=== PATIENT | female | born 1960 | race Caucasian/White ===

== ENCOUNTER 2017-10-20 15:21 | Observation (INO) | payer SELFPAY ==
[2017-10-20] VITALS (7 sets, daily range): BP systolic 112–125; BP diastolic 55–66; PULSE 75–106; RESP 18; TEMP 98–98.5; O2SAT 95–98
[~2017-10-20] VITALS: Ht 167.6 cm; Wt 57.6 kg
[~2017-10-20 15:21] MED LIST: ASPI81CH25 PO; ATOR20TA15 PO; FOLI1TAB6 PO; HYDR-3580 PO; METO25TA3 PO; NITR0.4S SL; PLAV75TA29 PO; RAMI2.5C PO; VENTAER INH
--- NOTE | 2017-10-20 16:42 | PD ---
HPI Chief Complaint: Cardiac Complaint Time Seen by Provider: 16:22 Travel History International Travel<30 days: No Contact w/Intl Traveler<30days: No Traveled to known affect area: No History of Present Illness HPI The patient was seen and examined in the presence of the nurse. This patient complains of chest pressure and tightness. It's located in the center sternal region. Duration 2 days. Severity is moderate. She has known CAD with stenting. She drinks heavily and smokes heavily. She is noncompliant with follow-up. She had a catheterization of her heart 4 months ago showing 75% stenosis of a vessel and some other more minor blockages and a patent stent and was supposed to get medical management but as noted she is fairly noncompliant. No alleviating factors. Symptoms exacerbated by her noncompliance PFSH Past Medical History Arthritis: Yes (right side) Anxiety: No Depression: No Cancer: No Cardiac Catheterization: Yes (stents) Cardiovascular Problems: Yes (STENT) High Cholesterol: Yes Chemotherapy: No Chest Pain: Yes Cerebrovascular Accident: No Coronary Artery Disease: Yes Diabetes: No Diminished Hearing: No Endocrine: No Genitourinary: No Hypertension: Yes Immune Disorder: Yes (ARTHRITIS) Musculoskeletal: Yes Neurologic: Yes Psychiatric: No Reproductive: No Respiratory: Yes (COPD) Immunizations Current: Yes Migraines: No Radiation Therapy: No Seizures: No Thyroid Disease: No Tetanus Vaccination: > 5 Years Influenza Vaccination: No ?: Not Menopausal: Yes : 5 Para: 1 Miscarriage: 2 : 2 Ovarian Cysts: Yes Past Surgical History Abdominal Surgery: Yes (APPENDECTOMY) AICD: No Appendectomy: Yes Insulin Pump: No Social History Alcohol Use: Yes (moderate-several x's weekly ) Tobacco Use: Yes (1 PPD) Substance Use: No Allergies-Medications (Allergen,Severity, Reaction): Coded Allergies: No Known Allergies (Verified Allergy, Unknown, 10/20/17) Reported Meds & Prescriptions Reported Meds & Active Scripts Active No Active Prescriptions or Reported Medications Review of Systems General / Constitutional: No: Fever Eyes: No: Visual changes HENT: No: Headaches Cardiovascular: Positive: Chest Pain or Discomfort Respiratory: Positive: Cough, No: Shortness of Breath Gastrointestinal: No: Abdominal Pain Genitourinary: No: Dysuria Musculoskeletal: No: Pain Skin: No Rash Neurologic: No: Weakness Psychiatric: Positive: Substance Abuse, No: Depression Endocrine: No: Polydipsia Hematologic/Lymphatic: No: Easy Bruising Physical Exam Narrative GENERAL: Well-nourished, well-developed patient in no apparent distress. SKIN: Focused skin assessment reveals no rash and nodules. Skin is Warm and dry. HEAD: Atraumatic. Normocephalic. EYES: Pupils equal and round. No scleral icterus. No injection or drainage. ENT: No nasal bleeding or discharge. Mucous membranes pink and moist. NECK: Trachea midline. No JVD. CARDIOVASCULAR: Regular rate and rhythm. No murmur appreciated. RESPIRATORY: No accessory muscle use. Clear to auscultation. Breath sounds equal bilaterally. GASTROINTESTINAL: Abdomen soft, non-tender, nondistended. Hepatic and splenic margins not palpable. MUSCULOSKELETAL: No obvious deformities. No clubbing. No cyanosis. No edema. NEUROLOGICAL: Awake and alert. No obvious cranial nerve deficits. Motor grossly within normal limits. Normal speech. PSYCHIATRIC: Appropriate mood and affect; insight and judgment poor. Data Data Last Documented VS Vital Signs Date Time Temp Pulse Resp B/P (MAP) Pulse Ox O2 Delivery O2 Flow Rate FiO2 10/20/17 18:15 85 18 122/66 (84) 97 Nasal Cannula 2.00 10/20/17 15:52 98.5 Orders Orders Electrocardiogram (10/20/17 16:33) Basic Metabolic Panel (Bmp) (10/20/17 16:33) Ckmb (Isoenzyme) Profile (10/20/17 16:33) Complete Blood Count With Diff (10/20/17 16:33) Prothrombin Time / Inr (Pt) (10/20/17 16:33) Act Partial Throm Time (Ptt) (10/20/17 16:33) Troponin I (10/20/17 16:33) Chest, Single Ap (10/20/17 16:33) Ecg Monitoring (10/20/17 16:33) Iv Access Insert/Monitor (10/20/17 16:33) Oximetry (10/20/17 16:33) Aspirin (Aspirin) (10/20/17 16:45) Sodium Chloride 0.9% Flush (Ns Flush) (10/20/17 16:45) Albuterol-Ipratropium Neb (Duoneb Neb) (10/20/17 16:45) Alcohol (Ethanol) (10/20/17 16:33) CKMB (10/20/17 16:10) CKMB% (10/20/17 16:10) Place In Observation (10/20/17 18:17) Activity Bed Rest With Brp (10/20/17 18:17) Vital Signs (Adult) Q4H (10/20/17 18:17) Cardiac Rhythm .As Directed (10/20/17 18:17) Notify Dr: Other .PRN (10/20/17 18:17) Notify Dr. Parameters (10/20/17 18:17) Resp Oxygen Nasal Cannula (10/20/17 ) Diet Heart Healthy (10/20/17 Dinner) Ckmb (Isoenzyme) Profile (10/20/17 19:00) Ckmb (Isoenzyme) Profile (10/20/17 22:00) Troponin I (10/20/17 19:00) Troponin I (10/20/17 22:00) Electrocardiogram (10/20/17 19:00) Electrocardiogram (10/20/17 22:00) Sodium Chloride 0.9% Flush (Ns Flush) (10/20/17 18:30) Sodium Chloride 0.9% Flush (Ns Flush) (10/20/17 21:00) Acetaminophen (Tylenol) (10/20/17 18:30) Ondansetron Inj (Zofran Inj) (10/20/17 18:30) Multimedia Services Coordinator / Telemetry JERMAN.Q8H (10/20/17 18:17) Scd Bilateral/Knee High JERMAN.QSHIFT (10/20/17 18:17) Labs Laboratory Tests Test 10/20/17 16:10 White Blood Count 7.7 TH/MM3 Red Blood Count 4.50 MIL/MM3 Hemoglobin 14.7 GM/DL Hematocrit 44.2 % Mean Corpuscular Volume 98.3 FL Mean Corpuscular Hemoglobin 32.7 PG Mean Corpuscular Hemoglobin Concent 33.2 % Red Cell Distribution Width 15.2 % Platelet Count 319 TH/MM3 Mean Platelet Volume 7.4 FL Neutrophils (%) (Auto) 41.3 % Lymphocytes (%) (Auto) 51.5 % Monocytes (%) (Auto) 4.1 % Eosinophils (%) (Auto) 2.1 % Basophils (%) (Auto) 1.0 % Neutrophils # (Auto) 3.2 TH/MM3 Lymphocytes # (Auto) 3.9 TH/MM3 Monocytes # (Auto) 0.3 TH/MM3 Eosinophils # (Auto) 0.2 TH/MM3 Basophils # (Auto) 0.1 TH/MM3 CBC Comment DIFF FINAL Differential Comment Prothrombin Time 9.4 SEC Prothromb Time International Ratio 0.9 RATIO Activated Partial Thromboplast Time 24.7 SEC Blood Urea Nitrogen 16 MG/DL Creatinine 0.62 MG/DL Random Glucose 80 MG/DL Calcium Level 8.4 MG/DL Sodium Level 140 MEQ/L Potassium Level 3.9 MEQ/L Chloride Level 104 MEQ/L Carbon Dioxide Level 25.0 MEQ/L Anion Gap 11 MEQ/L Estimat Glomerular Filtration Rate 99 ML/MIN Total Creatine Kinase 308 U/L Creatine Kinase MB 4.8 NG/ML Creatine Kinase MB % 1.6 % Troponin I LESS THAN 0.02 NG/ML Ethyl Alcohol Level 268 MG/DL [facility] Medical Decision Making Medical Screen Exam Complete: Yes Emergency Medical Condition: Yes Medical Record Reviewed: Yes Differential Diagnosis Differential diagnosis includes [place], angina, pericarditis, pleurisy, GERD, anxiety. Narrative Course I have reviewed the patient's electronic medical record. Reviewed her catheterization report from 4 months ago. Also had cavitary lung lesions that were negative for TB IV placed I reviewed the EKG which shows sinus rhythm but no ST elevation I reviewed the chest x-ray shows a cavitary lesion in the left lung Extended cardiac monitoring shows sinus rhythm without ectopy CBC is normal Metabolic profile is normal CK is normal Troponin is normal Coagulation studies are normal I gave her an aspirin Alcohol level is elevated indicating acute intoxication This is a patient with known CAD and 75% lesion complaining of chest pain. She is acutely intoxicated. She has multiple risk factors and is noncompliant. She 'll be admitted for telemetry monitoring and further evaluation. Also there is this issue cavitary lung lesion. I reviewed with hospitalist Diagnosis Primary Impression: Chest tightness Additional Impressions: CAD (coronary artery disease) Qualified Codes: I25.10 - Atherosclerotic heart disease of [place] coronary artery without angina pectoris; I25.84 - Coronary atherosclerosis due to calcified coronary lesion Alcohol intoxication Qualified Codes: F10.920 - Alcohol use, unspecified with intoxication, uncomplicated Cavitary lesion of lung Admitting Information Admitting Physician Requests: Admit Scripts No Active Prescriptions or Reported Meds Madi Villatoro MD Oct 20, 2017 16:42
[2017-10-20] MEDS ORDERED: ASPIRIN 325 MG TAB PO ONE (16:45)
[2017-10-20] MEDS ORDERED: SODIUM CHLORIDE 0.9% FLUSH 10 ML FLUSH IVF PRN (16:45)
[2017-10-20] MEDS ORDERED: RESP: ALBUTEROL 2.5 MG/IPRATROPIUM 0.5 MG NEB (SCH) NEB ONE (16:45)
[2017-10-20 16:56] LABS: AUTOMATED NEUTROPHIL # 3.2 TH/MM3 (1.8-7.7); BASOPHIL # 0.1 TH/MM3 (0-0.2); EOSINOPHIL # 0.2 TH/MM3 (0-0.4); EOSINOPHIL % 2.1 % (0.0-4.0); HEMATOCRIT 44.2 % (35.0-46.0); HEMOGLOBIN 14.7 GM/DL (11.6-15.3); LYMPH % 51.5 % (9.0-44.0); LYMPHOCYTE # 3.9 TH/MM3 (1.0-4.8); MEAN CELL VOLUME 98.3 FL (80.0-100.0); MEAN CORPUSCULAR HEMOGLOBIN 32.7 PG (27.0-34.0); MEAN CORPUSCULAR HGB CONC 33.2 % (32.0-36.0); MEAN PLATELET VOLUME 7.4 FL (7.0-11.0); MONO % 4.1 % (0.0-8.0); MONOCYTE # 0.3 TH/MM3 (0-0.9); NEUT % 41.3 % (16.0-70.0); PLATELET COUNT 319 TH/MM3 (150-450); RED CELL DISTRIBUTION WIDTH 15.2 % (11.6-17.2); WHITE BLOOD COUNT 7.7 TH/MM3 (4.0-11.0)
[2017-10-20 17:02] LABS: CHLORIDE 104 MEQ/L (98-107); SODIUM (NA) 140 MEQ/L (136-145)
[2017-10-20 17:04] LABS: CALCIUM 8.4 MG/DL (8.5-10.1)
[2017-10-20 17:05] LABS: BLOOD UREA NITROGEN 16 MG/DL (7-18); GLUCOSE,RANDOM 80 MG/DL (74-106)
[2017-10-20 17:06] LABS: INTERNATIONAL NORMALIZED RATIO 0.9 RATIO; PROTHROMBIN TIME - PATIENT 9.4 SEC (9.8-11.6)
[2017-10-20 17:08] LABS: CREATININE 0.62 MG/DL (0.50-1.00); GLOMERULAR FILTRATION RATE 99 ML/MIN (>89)
[2017-10-20 17:13] LABS: TROPONIN I LESS THAN 0.02 NG/ML (0.02-0.05)
--- NOTE | 2017-10-20 17:19 | RADRPT ---
EXAM DATE/TIME: 10/20/2017 16:53 [facility] COMPARISON: CHEST SINGLE AP, June 17, 2017, 10:34. INDICATIONS : Chest tightness and shortness of breath. MEDICAL HISTORY : Chronic obstructive pulmonary disease. Cardiovascular disease. SURGICAL HISTORY : Coronary artery stent. ENCOUNTER: Initial ACUITY: 2 days PAIN SCORE: 3/10 LOCATION: Bilateral chest FINDINGS: A single view of the chest demonstrates the lungs to be symmetrically aerated with a 1.8 cm, thickwal led cavitary mass lesion projecting over the left scapula and 6th posterior rib. Lungs are otherwise clear. Heart size is normal. Osseous structures are intact. CONCLUSION: 1. 1.8 cm thick walled cavitary mass lesion projecting over the left scapula. Both infectious and maricruz plastic processes should be considered. 2. No confluent infiltrate. Heart size is normal. Tristen Kumar MD on October 20, 2017 at 17:13 Board Certified Radiologist. This report was verified electronically.
[2017-10-20] MEDS ORDERED: ONDANSETRON HCL 4 MG/2 ML VIAL IV PUSH PRN (18:30)
[2017-10-20] MEDS ORDERED: ACETAMINOPHEN 500 MG CPLT PO PRN (18:30)
[2017-10-20] MEDS ORDERED: SODIUM CHLORIDE 0.9% FLUSH 10 ML FLUSH IV FLUSH PRN ×2 (18:30→18:45)
[2017-10-20] MEDS ORDERED: FLUMAZENIL 0.5 MG/5 ML VIAL IV PUSH PRN (18:45)
[2017-10-20] MEDS ORDERED: LORazepam 2 MG/ML VIAL IV PUSH PRN ×4 (18:45)
[2017-10-20] MEDS ORDERED: MORPHINE SULFATE 2 MG/ML INJ IM PRN (18:45)
[2017-10-20] MEDS ORDERED: RESP: ALBUTEROL 2.5 MG/IPRATROPIUM 0.5 MG NEB (PRN) NEB (18:45)
[2017-10-20] MEDS: CLOPIDOGREL 75 MG TAB PO SCH (18:45)
[2017-10-20] MEDS ORDERED: LORazepam 2 MG TAB PO PRN (18:45)
[2017-10-20] MEDS ORDERED: ACETAMINOPHEN/HYDROcodone 325 MG/5 MG TAB PO PRN (18:45)
--- NOTE | 2017-10-20 18:47 | HHI.HP ---
[facility] Service [facility] Primary Care Physician No Primary Care Physician Admission Diagnosis Chest pain,CAD, alcohol intox, pulm cavitary lesion Diagnoses: (1) Chest tightness Chief Complaint: Chest pain Travel History International Travel<30 Days: No Contact w/Intl Traveler <30 Da: No Traveled to Known Affected Are: No History of Present Illness Ms. Carnes is a 57-year-old female patient with a known medical history of CAD with stent placement, hyperlipidemia, alcohol abuse and tobacco abuse who presented to the ED with complaints of chest tightness. She complains of midsternal chest tightness and pressure, denying any radiation of pain, characterizing it as constant in nature, rated a seven out of ten on pain scale , denies any associated symptoms including diaphoresis, nausea, vomiting. Does admit to associated shortness of breath. Patient was last admitted here four months ago and underwent a cardiac catheterization with stent placement. Patient is noncompliant with follow-up medications due to lack of insurance and has not taken her medications for four months. Does admit to current tobacco use. Patient has a chronic alcoholic and alcohol level upon presentation was 268. Denies any recent illness including fever, cough, chills, abdominal pain, nausea, vomiting, diarrhea, dysuria. Does not follow with a PCP. During her hospitalization in July she was diagnosed with a new cavitary mass in the left upper lobe. Review of Systems Constitutional: DENIES: Fever, Chills Respiratory: COMPLAINS OF: Shortness of breath, DENIES: Cough, Sputum production Cardiovascular: COMPLAINS OF: Chest pain, Palpitations Gastrointestinal: DENIES: Abdominal pain, Black stools, Bloody stools, Constipation, Diarrhea, Nausea, Vomiting Integumentary: DENIES: Abnormal pigmentation Hematologic/lymphatic: DENIES: Bruising Immunologic/allergic: DENIES: Eczema Neurologic: DENIES: Abnormal gait Psychiatric: COMPLAINS OF: Anxiety Except as stated in HPI: all other systems reviewed are Neg Past Family Social History Past Medical History CAD with history of NC and cardiac stent placement Hyperlipidemia Hypertension Arthritis COPD neck sign tobacco abuse Past Surgical History Appendectomy Cardiac catheter with stent placement Reported Medications Has not been taking any prescribed medications due to lack of insurance Allergies: Coded Allergies: No Known Allergies (Verified Allergy, Unknown, 10/20/17) Active Ordered Medications Current Medications Medications (Trade) Dose Ordered Sig/Alison Route Start Time Stop Time Status Last Admin (NS Flush) 2 ml UNSCH PRN IVF 10/20/17 16:45 (NS Flush) 2 ml UNSCH PRN IV FLUSH 10/20/17 18:30 UNV (NS Flush) 2 ml BID IV FLUSH 10/20/17 21:00 UNV (Tylenol) 500 mg Q4H PRN PO 10/20/17 18:30 UNV (Zofran Inj) 4 mg Q6H PRN IV PUSH 10/20/17 18:30 UNV Family History Maternal medical history significant for lung cancer Social History Patient admits to smoking one pack per day cigarettes since since her teenage years. Continued alcohol use, has been trying to quit. Denies any illicit drug use. Physical Exam Vital Signs Vital Signs Date Time Temp Pulse Resp B/P (MAP) Pulse Ox O2 Delivery O2 Flow Rate FiO2 10/20/17 18:15 85 18 122/66 (84) 97 Nasal Cannula 2.00 10/20/17 17:00 92 18 116/64 (81) 95 Room Air 10/20/17 16:55 82 18 95 Room Air 10/20/17 16:55 98 Room Air 10/20/17 15:52 98.5 106 18 112/55 (74) 96 Physical Exam GENERAL: Well-nourished, well-developed patient in NAD. On supplemental O2 SKIN: Warm and dry. No rash. HEAD: Normocephalic. Atraumatic. EYES: Pupils equal and round. No scleral icterus. No injection or drainage. ENT: No nasal bleeding or discharge. Mucous membranes pink and moist. NECK: Supple. Trachea midline. CARDIOVASCULAR: Regular rate and rhythm. S1, S2 noted. No murmur appreciated. No reproducible chest pain. RESPIRATORY: No accessory muscle use. Diminished breath sounds in the posterior bases. Breath sounds equal bilaterally. GASTROINTESTINAL: Abdomen soft, non-tender, nondistended. Normoactive bowel sounds x4. MUSCULOSKELETAL: No obvious deformities. Extremities without clubbing, cyanosis , or edema. NEUROLOGICAL: Awake and alert. No obvious cranial nerve deficits. Motor grossly within normal limits. 5/5 muscle strength in bilateral upper and lower extremities. Normal speech. PSYCHIATRIC: Appropriate mood and affect; insight and judgment normal. Laboratory Laboratory Tests Test 10/20/17 16:10 White Blood Count 7.7 Red Blood Count 4.50 Hemoglobin 14.7 Hematocrit 44.2 Mean Corpuscular Volume 98.3 Mean Corpuscular Hemoglobin 32.7 Mean Corpuscular Hemoglobin Concent 33.2 Red Cell Distribution Width 15.2 Platelet Count 319 Mean Platelet Volume 7.4 Neutrophils (%) (Auto) 41.3 Lymphocytes (%) (Auto) 51.5 Monocytes (%) (Auto) 4.1 Eosinophils (%) (Auto) 2.1 Basophils (%) (Auto) 1.0 Neutrophils # (Auto) 3.2 Lymphocytes # (Auto) 3.9 Monocytes # (Auto) 0.3 Eosinophils # (Auto) 0.2 Basophils # (Auto) 0.1 CBC Comment DIFF FINAL Differential Comment Prothrombin Time 9.4 Prothromb Time International Ratio 0.9 Activated Partial Thromboplast Time 24.7 Blood Urea Nitrogen 16 Creatinine 0.62 Random Glucose 80 Calcium Level 8.4 Sodium Level 140 Potassium Level 3.9 Chloride Level 104 Carbon Dioxide Level 25.0 Anion Gap 11 Estimat Glomerular Filtration Rate 99 Total Creatine Kinase 308 Creatine Kinase MB 4.8 Creatine Kinase MB % 1.6 Troponin I LESS THAN 0.02 Ethyl Alcohol Level 268 Result Diagram: 10/20/17 1610 10/20/17 1610 Imaging Last Impressions Chest X-Ray 10/20/17 1633 Signed Impressions: Service Date/Time: Friday, October 20, 2017 16:53 - CONCLUSION: 1. 1.8 cm thick walled cavitary mass lesion projecting over the left scapula. Both infectious and neoplastic processes should be considered. 2. No confluent infiltrate. Heart size is normal. Tristen Kumar MD Septic Shock Reassessment Septic shock perfusion: reassessment completed Caprini VTE Risk Assessment Caprini VTE Risk Assessment: No/Low Risk (score <= 1) Caprini Risk Assessment Model Point Value = 1 Point Value = 2 Point Value = 3 Point Value = 5 Age 41-60 Minor surgery BMI > 25 kg/m2 Swollen legs Varicose veins or History of unexplained or recurrent spontaneous Oral contraceptives or hormone replacement Sepsis (< 1 month) Serious lung disease, including pneumonia (< 1 month) Abnormal pulmonary function Acute myocardial infarction Congestive heart failure (< 1 month) History of inflammatory bowel disease Medical patient at bed rest Age 61-74 Arthroscopic surgery Major open surgery (> 45 min) Laparoscopic surgery (> 45 min) Malignancy Confined to bed (> 72 hours) Immobilizing plaster cast Central venous access Age >= 75 History of VTE Family history of VTE Factor V Leiden Prothrombin [id number] Lupus anticoagulant Anticardiolipin antibodies Elevated serum homocysteine Heparin-induced thrombocytopenia Other congenital or acquired thrombophilia Stroke (< 1 month) Elective arthroplasty Hip, pelvis, or leg fracture Acute spinal cord injury (< 1 month) Prophylaxis Regimen Total Risk Factor Score Risk Level Prophylaxis Regimen 0-1 Low Early ambulation 2 Moderate Order ONE of the following: *Sequential Compression Device (SCD) *Heparin 5000 units SQ BID 3-4 Higher Order ONE of the following medications: *Heparin 5000 units SQ TID *Enoxaparin/Lovenox 40 mg SQ daily (WT < 150 kg, CrCl > 30 mL/min) *Enoxaparin/Lovenox 30 mg SQ daily (WT < 150 kg, CrCl > 10-29 mL/min) *Enoxaparin/Lovenox 30 mg SQ BID (WT < 150 kg, CrCl > 30 mL/min) AND/OR *Sequential Compression Device (SCD) 5 or more Highest Order ONE of the following medications: *Heparin 5000 units SQ TID (Preferred with Epidurals) *Enoxaparin/Lovenox 40 mg SQ daily (WT < 150 kg, CrCl > 30 mL/min) *Enoxaparin/Lovenox 30 mg SQ daily (WT < 150 kg, CrCl > 10-29 mL/min) *Enoxaparin/Lovenox 30 mg SQ BID (WT < 150 kg, CrCl > 30 mL/min) AND *Sequential Compression Device (SCD) Assessment and Plan Assessment and Plan Ms. Carnes is a 57-year-old female patient with a known medical history of CAD with stent placement, hyperlipidemia, alcohol abuse and tobacco abuse who presented to the ED with complaints of chest tightness. Atypical chest pain Suspect secondary to noncompliance with medication for cardiac stents. Serial troponins and serial EKGs have been ordered for ruling out ACS purposes. Initial Troponin flat. Follow trend. Control pain, [place] PO PRN as need per pain scale. Morphine IV PRN as needed per pain scale. Will contact cardiology in the morning, after ruling out ACS. For further recommendations and input. Cavitary mass in left upper lobe, chronic CXR reviewed showing 1.8 cm thick-walled cavitary mass lesion projecting over the past. Previous x-ray reviewed from July showing 3.5 cm cavitary mass of the left upper lobe. CBC and BMP reviewed essentially unremarkable. WBC WNL. Afebrile. Duonebs available PRN. Continue home inhaler. History of CAD with stent placement: Continue home Plavix. Continue home Ramipril, metoprolol and aspirin. Dyslipidemia: Continue home Atorvastatin. Alcohol abuse: Ethyl alcohol level 268 on presentation. Patient counselled on cessation. Monitor for withdrawals. CIWA protocol initiated. Continue multivitamin, folic acid and thiamine. Tobacco abuse: Counselled on cessation. DVT prophylaxis: SCDs. Lakshmi Benjamin Oct 20, 2017 18:47
[2017-10-20 19:37] LABS: TROPONIN I LESS THAN 0.02 NG/ML (0.02-0.05)
[2017-10-20] MEDS: RESP: ALBUTEROL 2.5 MG/IPRATROPIUM 0.5 MG NEB (SCH) NEB (19:46)
[2017-10-20] MEDS: ATORVASTATIN 20 MG TAB PO SCH (19:52)
[2017-10-20] MEDS: METOPROLOL TARTRATE 25 MG TAB PO SCH (19:52)
[2017-10-20] MEDS: SODIUM CHLORIDE 0.9% FLUSH 10 ML FLUSH IV FLUSH SCH ×2 (19:53)
[2017-10-20 22:43] LABS: TROPONIN I LESS THAN 0.02 NG/ML (0.02-0.05)
[2017-10-20] MEDS: LORazepam 1 MG TAB PO PRN (22:57)
[2017-10-21] VITALS (10 sets, daily range): BP systolic 131–176; BP diastolic 58–77; PULSE 59–83; RESP 16–20; TEMP 96.9–99.3; O2SAT 94–98
[2017-10-21 06:59] LABS: AUTOMATED NEUTROPHIL # 5.6 TH/MM3 (1.8-7.7); BASOPHIL # 0.1 TH/MM3 (0-0.2); BASOPHIL % 0.7 % (0.0-2.0); EOSINOPHIL # 0.3 TH/MM3 (0-0.4); EOSINOPHIL % 4.2 % (0.0-4.0); HEMATOCRIT 40.1 % (35.0-46.0); HEMOGLOBIN 13.8 GM/DL (11.6-15.3); LYMPHOCYTE # 1.5 TH/MM3 (1.0-4.8); MEAN CELL VOLUME 97.5 FL (80.0-100.0); MEAN CORPUSCULAR HEMOGLOBIN 33.5 PG (27.0-34.0); MEAN CORPUSCULAR HGB CONC 34.4 % (32.0-36.0); MEAN PLATELET VOLUME 7.5 FL (7.0-11.0); MONO % 7.9 % (0.0-8.0); MONOCYTE # 0.6 TH/MM3 (0-0.9); NEUT % 69.2 % (16.0-70.0); PLATELET COUNT 279 TH/MM3 (150-450); RED BLOOD COUNT 4.11 MIL/MM3 (4.00-5.30); RED CELL DISTRIBUTION WIDTH 14.5 % (11.6-17.2); WHITE BLOOD COUNT 8.1 TH/MM3 (4.0-11.0)
[2017-10-21 07:11] LABS: CHLORIDE 104 MEQ/L (98-107); SODIUM (NA) 140 MEQ/L (136-145)
[2017-10-21 07:15] LABS: BICARBONATE 27.2 MEQ/L (21.0-32.0); BLOOD UREA NITROGEN 20 MG/DL (7-18)
[2017-10-21 07:17] LABS: ALBUMIN 3.7 GM/DL (3.4-5.0); CALCIUM 8.7 MG/DL (8.5-10.1); GLUCOSE,RANDOM 81 MG/DL (74-106)
[2017-10-21 07:20] LABS: AST (GOT) 37 U/L (15-37)
[2017-10-21 07:21] LABS: ALT (GPT) 25 U/L (10-53); CREATININE 0.51 MG/DL (0.50-1.00); GLOMERULAR FILTRATION RATE 124 ML/MIN (>89)
[2017-10-21 07:22] LABS: TOTAL PROTEIN 7.2 GM/DL (6.4-8.2)
[2017-10-21 07:23] LABS: ALKALINE PHOSPHATASE 42 U/L (45-117)
[2017-10-21 07:25] LABS: TOTAL BILIRUBIN ADULT 1.3 MG/DL (0.2-1.0)
[2017-10-21] MEDS: RESP: ALBUTEROL 2.5 MG/IPRATROPIUM 0.5 MG NEB (SCH) NEB ×3 (07:46→20:00)
[2017-10-21] MEDS: FOLIC ACID 1 MG TAB PO SCH (08:02)
[2017-10-21] MEDS: MULTIVITAMINS/MINERALS THERAPEUTIC TAB PO SCH (08:02)
[2017-10-21] MEDS: METOPROLOL TARTRATE 25 MG TAB PO SCH ×2 (08:02→21:00)
[2017-10-21] MEDS: CLOPIDOGREL 75 MG TAB PO SCH (08:02)
[2017-10-21] MEDS: ASPIRIN 81 MG CHEW TAB CHEW SCH (08:02)
[2017-10-21] MEDS: THIAMINE HCL 100 MG TAB PO SCH (08:02)
[2017-10-21] MEDS: SODIUM CHLORIDE 0.9% FLUSH 10 ML FLUSH IV FLUSH SCH ×4 (08:03→21:02)
[2017-10-21] MEDS: RAMIPRIL 2.5 MG CAP PO SCH (08:31)
--- NOTE | 2017-10-21 09:17 | HHI.PR ---
Subjective Remarks Follow-up chest pain. Patient seen and examined, lying in bed awake and alert, no reports of any acute events overnight. Resting comfortably on room air. Chest pain has not resolved. Vital signs are stable. Afebrile. Patient will undergo a cardiac stress test today and obtain chest CT. Objective Vitals Vital Signs Date Time Temp Pulse Resp B/P (MAP) Pulse Ox O2 Delivery O2 Flow Rate FiO2 10/21/17 07:50 98.3 74 20 176/77 (110) 96 10/21/17 04:00 99.0 69 16 165/77 (106) 96 10/21/17 00:00 99.3 83 16 135/65 (88) 95 10/20/17 23:00 75 10/20/17 20:00 98.0 86 18 125/66 (85) 96 10/20/17 19:49 97 21 10/20/17 19:23 10/20/17 18:15 85 18 122/66 (84) 97 Nasal Cannula 2.00 10/20/17 17:00 92 18 116/64 (81) 95 Room Air 10/20/17 16:55 82 18 95 Room Air 10/20/17 16:55 98 Room Air 10/20/17 15:52 98.5 106 18 112/55 (74) 96 I/O 10/20/17 10/20/17 10/20/17 10/21/17 10/21/17 10/21/17 07:00 15:00 23:00 07:00 15:00 23:00 Intake Total 180 ml Balance 180 ml Intake Oral 180 ml # Voids 1 # Bowel Movements 0 Result Diagram: 10/21/17 0609 10/21/17 0609 Imaging Last Impressions Chest X-Ray 10/20/17 1633 Signed Impressions: Service Date/Time: Friday, October 20, 2017 16:53 - CONCLUSION: 1. 1.8 cm thick walled cavitary mass lesion projecting over the left scapula. Both infectious and neoplastic processes should be considered. 2. No confluent infiltrate. Heart size is normal. Tristen Kumar MD Objective Remarks GENERAL: Well-nourished, well-developed patient in NAD. SKIN: Warm and dry. No rash. HEAD: Normocephalic. Atraumatic. EYES: Pupils equal and round. No scleral icterus. No injection or drainage. ENT: No nasal bleeding or discharge. Mucous membranes pink and moist. NECK: Supple. Trachea midline. CARDIOVASCULAR: Regular rate and rhythm. S1, S2 noted. No murmur appreciated. RESPIRATORY: No accessory muscle use. Clear to auscultation. Breath sounds equal bilaterally. GASTROINTESTINAL: Abdomen soft, non-tender, nondistended. Normoactive bowel sounds x4. MUSCULOSKELETAL: No obvious deformities. Extremities without clubbing, cyanosis , or edema. NEUROLOGICAL: Awake and alert. No obvious cranial nerve deficits. Motor grossly within normal limits. 5/5 muscle strength in bilateral upper and lower extremities. Normal speech. PSYCHIATRIC: Appropriate mood and affect; insight and judgment normal. A/P Assessment and Plan Ms. Carnes is a 57-year-old female patient with a known medical history of CAD with stent placement, hyperlipidemia, alcohol abuse and tobacco abuse who presented to the ED with complaints of chest tightness. Atypical chest pain Suspect secondary to noncompliance with medication for cardiac stents vs cavitary lesion. Serial troponins and serial EKGs have been ordered for ruling out ACS purposes. Troponins flat. Control pain, [place] PO PRN as need per pain scale. Morphine IV PRN as needed per pain scale. Spoke to technical operations manager on-call for chest pain center and updated about patient history, will undergo cardiac stress test today to rule out any presence of ischemia. Further hospitalization and treatment plan will depend on nuclear imaging results. Cavitary mass in left upper lobe, chronic CXR reviewed showing 1.8 cm thick-walled cavitary mass lesion projecting over the past. Previous x-ray reviewed from July showing 3.5 cm cavitary mass of the left upper lobe. Will obtain chest CT today.. CBC and BMP reviewed essentially unremarkable. WBC WNL. Afebrile. Duonebs available PRN. Continue home inhaler. History of CAD with stent placement: Continue home Plavix. Continue home Ramipril, metoprolol and aspirin. Dyslipidemia: Continue home Atorvastatin. Alcohol abuse: Ethyl alcohol level 268 on presentation. Patient counselled on cessation. Monitor for withdrawals. CIWA protocol initiated. Continue multivitamin, folic acid and thiamine. Tobacco abuse: Counselled on cessation. DVT prophylaxis: SCDs. Lakshmi Benjamin Oct 21, 2017 09:17
[2017-10-21] MEDS ORDERED: MORPHINE SULFATE 2 MG/ML INJ IV PUSH PRN (09:45)
[2017-10-21] MEDS ORDERED: IOHEXOL 350 MG/ML 10 ML VIAL (for RAD DIAG) IVCONTRAST ONE (11:30)
[2017-10-21] MEDS ORDERED: REGADENOSON INJ 0.4 MG/5 ML SYR IV ONE (11:50)
--- NOTE | 2017-10-21 12:35 | RADRPT ---
EXAM DATE/TIME: 10/21/2017 11:06 [facility] COMPARISON: CT THORAX W CONTRAST, August 12, 2017, 22:15. INDICATIONS : Mass IV CONTRAST: 75 cc Omnipaque 350 (iohexol) IV RADIATION DOSE: 6.21 CTDIvol (mGy) MEDICAL HISTORY : Cardiovascular disease. Chronic obstructive pulmonary disease. Hypertension.Alchohol abuse SURGICAL HISTORY : Appendectomy. Hysterectomy. ENCOUNTER: Initial ACUITY: 1 day PAIN SCALE: 0/10 LOCATION: Bilateral chest TECHNIQUE: Volumetric scanning of the chest was performed. Using automated exposure control and adjustment of t he mA and/or kV according to patient size, radiation dose was kept as low as reasonably achievable to obtain optimal diagnostic quality images. DICOM format image data is available electronically for review and comparison. Follow-up recommendations for detected pulmonary nodules are based at a minimum on nodule size and pa tient risk factors according to Fleischner Society Guidelines. FINDINGS: LUNGS: A mass is again identified in the left upper lobe laterally. It has decreased in size when compared t o the prior study of 08/12/2017. Now measuring 2.5 x 2.1 cm compared to 3.5 x 3.1 cm. Left perihilar irregularly-shaped opacity is again seen on image #24. There is mild cavitation in this opacity as we ll. It measures 1.8 x 0.9 cm compared to 2.0 x 1.1 cm on the prior study. Linear opacity in the poste rior right lower lobe is again seen indicating scarring or atelectasis. PLEURA: There is no pleural thickening or pleural effusion. MEDIASTINUM: Coronary artery calcification. No enlarged lymph nodes. AXILLAE: Within normal limits. No lymphadenopathy. SKELETAL: Within normal limits for patient age. MISCELLANEOUS: The visualized upper abdominal organs demonstrate no acute abnormality. CONCLUSION: Decrease in size of cavitary mass in the left upper lobe laterally. Decrease in size of irregular sha ped perihilar opacity in the left lung with mild cavitation. These changes favor inflammatory etiolog ies. Arturo Pepe MD on October 21, 2017 at 12:27 Board Certified Radiologist. This report was verified electronically.
[2017-10-21] MEDS: SODIUM CHLOR 0.9% 1000 ML INJ 1,000 ML IV SCH ×2 (12:38→21:02)
--- NOTE | 2017-10-21 12:54 | RADRPT ---
EXAM DATE/TIME: 10/21/2017 11:22 [facility] COMPARISON: MYOCARDIAL PERF PHARM SPECT, GATED W/EF, May 20, 2017, 9:33. INDICATIONS : Midsternal chest pain with dyspnea. Angina. Coronary artery disease. DOSE: 25.4 mCi Tc99m Myoview at stress. 8.5 mCi Tc99m Myoview at rest. 0.4 mg Lexiscan STRESS SYMPTOMS: Dyspnea, lightheaded, stomach pressure and facial flush. EJECTION FRACTION: 60% MEDICAL HISTORY : Chronic obstructive pulmonary disease. Hypertension. Myocardial infarction. SURGICAL HISTORY : Appendectomy. Coronary artery stent. ENCOUNTER: Initial ACUITY: 1 day PAIN SCALE: 6/10 LOCATION: Midsternal chest TECHNIQUE: The patient underwent pharmacologic stress with infusion of prescribed dose. Continuous ECG tracing was monitored during stress. Gated SPECT imaging was performed after stress and conventional SPECT i maging was performed at rest. The examination was performed on a SPECT/CT scanner, both attenuation and non-corrected datasets were reviewed. FINDINGS: DISTRIBUTION: The maximum perfused segment at stress is in the inferior wall. PERFUSION STUDY: The pattern of perfusion at stress is within normal limits. GATED STUDY: There is intact wall motion and thickening without hypokinetic or dyskinetic segments. CONCLUSION: No focal wall motion abnormalities. No reversible perfusion defects. RISK CATEGORY: 1- Low Risk. Arturo Pepe MD on October 21, 2017 at 12:49 Board Certified Radiologist. This report was verified electronically.
--- NOTE | 2017-10-21 13:39 | EKG ---
Date Performed: 10/20/2017 Time Performed: 19:06:55 PTAGE: 57 years EKG: Sinus rhythm Since the prior tracing, there has been no significant change NORMAL ECG PREVIOUS TRACING : 10/20/2017 16.46 DOCTOR: [place] Lubin Interpretating Date/Time 10/21/2017 13:37:16
--- NOTE | 2017-10-21 13:39 | EKG ---
Date Performed: 10/20/2017 Time Performed: 22:10:51 PTAGE: 57 years EKG: Sinus rhythm Since the prior tracing, there has been no significant change NORMAL ECG PREVIOUS TRACING : 10/20/2017 19.06 DOCTOR: [place] Lubin Interpretating Date/Time 10/21/2017 13:37:07
--- NOTE | 2017-10-21 13:50 | EKG ---
Date Performed: 10/20/2017 Time Performed: 16:46:31 PTAGE: 57 years EKG: Sinus rhythm POSSIBLE RIGHT VENTRICULAR CONDUCTION DELAY BORDERLINE ECG NO PREVIOUS TRACING DOCTOR: [place] Lubin Interpretating Date/Time 10/21/2017 13:44:37
--- NOTE | 2017-10-21 15:32 | TR ---
Date Performed: 10/21/2017 Time Performed: 12:01:43 DOCTOR: Reji Castillo DRUG LIST: CLINICAL HISTORY: CHEST PAIN REASON FOR TEST: Chest pain REASON FOR ENDING: OBSERVATION: CONCLUSION: Lexiscan stress test was performed under standard four minute protocol. Radionuclid e was injected one minute prior to ending the test. No electrocardiographic abormalities were present to suggest ischemia. Nuclear imaging and interpretation are pending. COMMENTS:
[2017-10-21] MEDS: ATORVASTATIN 20 MG TAB PO SCH (21:00)
[2017-10-21] MEDS: LORazepam 1 MG TAB PO PRN (21:01)
[2017-10-22 00:02] VITALS: BP 120/64; PULSE 70; RESP 18; TEMP 97.9; O2SAT 99
[2017-10-22] MEDS: RESP: ALBUTEROL 2.5 MG/IPRATROPIUM 0.5 MG NEB (SCH) NEB (07:18)
[2017-10-22 07:19] VITALS: O2SAT 96
[2017-10-22] MEDS ORDERED: RAMI2.5C PO (07:37)
[2017-10-22] MEDS ORDERED: PLAV75TA29 PO (07:37)
[2017-10-22] MEDS ORDERED: METO25TA3 PO (07:37)
[2017-10-22] MEDS ORDERED: ASPI81 CHEW (07:37)
[2017-10-22] MEDS ORDERED: ATOR20TA15 PO (07:37)
--- NOTE | 2017-10-22 07:37 | HHI.DCPOC ---
Discharge Care Plan Diagnosis: (1) Chest tightness (2) CAD (coronary artery disease) (3) Alcohol intoxication (4) Cavitary lesion of lung (5) Tobacco abuse Goals to Promote Your Health * To prevent worsening of your condition and complications * To maintain your health at the optimal level Directions to Meet Your Goals Take your medications as prescribed Follow your dietary instruction Follow activity as directed Keep your appointments as scheduled Take your immunizations and boosters as scheduled If your symptoms worsen call your PCP, if no PCP go to Urgent Care Center or Emergency Room Smoking is Dangerous to Your Health. Avoid second hand smoke Call the 24-hour hour crisis hotline for domestic abuse at Lakshmi Benjamin Oct 22, 2017 07:37
--- NOTE | 2017-10-22 07:38 | HHI.PR ---
Subjective Remarks Follow-up chest pain and cavitary lesion. Patient seen and examined, sitting up on side of bed comfortably, in no apparent distress. States chest pain has resolved. All symptoms have improved. Denies any acute events overnight. Patient's vitals are stable. Cardiac stress test unremarkable. Objective Vitals Vital Signs Date Time Temp Pulse Resp B/P (MAP) Pulse Ox O2 Delivery O2 Flow Rate FiO2 10/22/17 07:19 96 21 10/22/17 04:29 10/22/17 00:02 97.9 70 18 120/64 (82) 99 10/21/17 21:21 98.0 59 16 131/58 (82) 98 10/21/17 20:02 94 21 10/21/17 20:00 76 10/21/17 15:00 96.9 69 20 143/71 (95) 94 10/21/17 14:54 98 21 10/21/17 11:50 98.5 71 20 140/69 (92) 95 10/21/17 08:00 18 10/21/17 07:50 98.3 74 20 176/77 (110) 96 I/O 10/21/17 10/21/17 10/21/17 10/22/17 10/22/17 10/22/17 07:00 15:00 23:00 07:00 15:00 23:00 Intake Total 180 ml 440 ml Balance 180 ml 440 ml Intake Oral 180 ml 240 ml IV Total 200 ml # Voids 1 3 3 # Bowel Movements 0 1 0 Result Diagram: 10/21/17 0609 10/21/17 0609 Imaging Last Impressions Myocardial Perfusion Scan Nuc Med 10/21/17 0000 Signed Impressions: Service Date/Time: Saturday, October 21, 2017 11:22 - CONCLUSION: No focal wall motion abnormalities. No reversible perfusion defects. RISK CATEGORY: 1- Low Risk. Arturo Pepe MD Chest CT 10/21/17 0000 Signed Impressions: Service Date/Time: Saturday, October 21, 2017 11:06 - CONCLUSION: Decrease in size of cavitary mass in the left upper lobe laterally. Decrease in size of irregular shaped perihilar opacity in the left lung with mild cavitation. These changes favor inflammatory etiologies. Arturo Pepe MD Chest X-Ray 10/20/17 1633 Signed Impressions: Service Date/Time: Friday, October 20, 2017 16:53 - CONCLUSION: 1. 1.8 cm thick walled cavitary mass lesion projecting over the left scapula. Both infectious and neoplastic processes should be considered. 2. No confluent infiltrate. Heart size is normal. Tristen Kumar MD Objective Remarks GENERAL: Well-nourished, well-developed patient in NAD. SKIN: Warm and dry. No rash. HEAD: Normocephalic. Atraumatic. EYES: Pupils equal and round. No scleral icterus. No injection or drainage. ENT: No nasal bleeding or discharge. Mucous membranes pink and moist. NECK: Supple. Trachea midline. CARDIOVASCULAR: Regular rate and rhythm. S1, S2 noted. No murmur appreciated. No reproducible chest pain. RESPIRATORY: No accessory muscle use. Clear to auscultation. Breath sounds equal bilaterally. GASTROINTESTINAL: Abdomen soft, non-tender, nondistended. Normoactive bowel sounds x4. MUSCULOSKELETAL: No obvious deformities. Extremities without clubbing, cyanosis , or edema. NEUROLOGICAL: Awake and alert. No obvious cranial nerve deficits. Motor grossly within normal limits. 5/5 muscle strength in bilateral upper and lower extremities. Normal speech. PSYCHIATRIC: Appropriate mood and affect; insight and judgment normal. A/P Assessment and Plan Ms. Carnes is a 57-year-old female patient with a known medical history of CAD with stent placement, hyperlipidemia, alcohol abuse and tobacco abuse who presented to the ED with complaints of chest tightness. Atypical chest pain Suspect secondary to noncompliance with medication for cardiac stents vs cavitary lesion. Serial troponins and serial EKGs have been ordered for ruling out ACS purposes. Troponins flat. Control pain, [place] PO PRN as need per pain scale. Morphine IV PRN as needed per pain scale. Lexiscan performed yesterday, no ischemia noted and no reversible perfusion defects. EF 60% Chest pain is resolved Cavitary mass in left upper lobe, chronic CXR reviewed showing 1.8 cm thick-walled cavitary mass lesion projecting over the past. Previous x-ray reviewed from July showing 3.5 cm cavitary mass of the left upper lobe. Chest CT reviewed showing a decrease in size of cavitary mass in the left upper lobe laterally. A decrease in size of irregular shaped perihilar opacity in the left lung with mild cavitation. Most likely inflammatory etiology. CBC and BMP reviewed essentially unremarkable. WBC WNL. Afebrile. Duonebs available PRN. Continue home inhaler. Mandatory referral was replaced pulmonology upon discharge area patient understandable about importance of following up with loan processing supervisor. History of CAD with stent placement: Continue home Plavix. Continue home Ramipril, metoprolol and aspirin. Dyslipidemia: Continue home Atorvastatin. Alcohol abuse: Ethyl alcohol level 268 on presentation. Patient counselled on cessation. Updated about elevated bili. Monitor for withdrawals. CIWA protocol. Tobacco abuse: Counselled on cessation. DVT prophylaxis: SCDs. Discharge Planning Patient will be discharged today with taxi past. Patient has been given two month supply of medications, encouraged to follow-up at the [facility] tomorrow for card, patient agreeable and will follow-up with pulmonology regarding cavitary mass/lesion on chest CT, has decreased in size. Patient counseled on smoking sensation, and the importance of quitting. Patient also counseled on quitting alcohol. Patient is stable at this time and agreeable to the plan Lakshmi Benjamin Oct 22, 2017 07:38
[2017-10-22 07:50] VITALS: BP 137/91; PULSE 76; RESP 20; TEMP 97.5; O2SAT 97
[2017-10-22] MEDS: ASPIRIN 81 MG CHEW TAB CHEW SCH (08:17)
[2017-10-22] MEDS: MULTIVITAMINS/MINERALS THERAPEUTIC TAB PO SCH (08:17)
[2017-10-22] MEDS: THIAMINE HCL 100 MG TAB PO SCH (08:17)
[2017-10-22] MEDS: CLOPIDOGREL 75 MG TAB PO SCH (08:17)
[2017-10-22] MEDS: RAMIPRIL 2.5 MG CAP PO SCH (08:17)
[2017-10-22] MEDS: FOLIC ACID 1 MG TAB PO SCH (08:18)
[2017-10-22] MEDS: METOPROLOL TARTRATE 25 MG TAB PO SCH (08:18)
[2017-10-22] MEDS: SODIUM CHLORIDE 0.9% FLUSH 10 ML FLUSH IV FLUSH SCH ×2 (08:19)
[2017-10-22] MEDS: SODIUM CHLOR 0.9% 1000 ML INJ 1,000 ML IV SCH (09:20)
== END 2017-10-22 11:45 | disposition home or self-care (01) ==
LOC: PHED 15:21 → PHEDA 18:23 → PH3A 19:25
PROVIDERS: ADMIT Hospitalist; ATTEND Hospitalist
DX: R07.89 Other chest pain (principal); I25.10 Atherosclerotic heart disease of native coronary artery without angina pectoris; E78.5 Hyperlipidemia, unspecified; E78.00 Pure hypercholesterolemia, unspecified; I10 Essential (primary) hypertension; J44.9 Chronic obstructive pulmonary disease, unspecified; R91.1 Solitary pulmonary nodule; F10.129 Alcohol abuse with intoxication, unspecified; F17.210 Nicotine dependence, cigarettes, uncomplicated; I25.2 Old myocardial infarction; Z91.19 Patient's noncompliance with other medical treatment and regimen; Y90.8 Blood alcohol level of 240 mg/100 ml or more; Z95.5 Presence of coronary angioplasty implant and graft; Z90.710 Acquired absence of both cervix and uterus
CPT/HCPCS: 71045; 71260; 78452; 80048; 80053; 80307; 82550; 82552; 84484; 85025; 85610; 85730; 93005; 93017; 94640; 94664; 96361; 96374; 96376; 99285; A9502; G0378; J2270; J2785; J7030; Q9967

== ENCOUNTER 2018-01-27 09:51 | Inpatient (IN) | payer SELFPAY ==
[2018-01-27] VITALS (9 sets, daily range): BP systolic 129–174; BP diastolic 57–94; PULSE 82–125; RESP 18–21; TEMP 97.5–100.1; O2SAT 86–99
[~2018-01-27] VITALS: Ht 170.2 cm; Wt 58.1 kg
[~2018-01-27 09:51] MED LIST changes: +ASPI81 CHEW; -ASPI81CH25 PO; -FOLI1TAB6 PO; -HYDR-3580 PO; -NITR0.4S SL; -VENTAER INH
[2018-01-27] MEDS: RESP: ALBUTEROL 2.5 MG/IPRATROPIUM 0.5 MG NEB (SCH) INH ×2 (10:15→10:28)
[2018-01-27] MEDS ORDERED: methylPREDNISolone SOD SUCC 125 MG/2 ML VIAL IV PUSH ONE (10:15)
--- NOTE | 2018-01-27 10:19 | PD ---
HPI Chief Complaint: Cold / Flu Symptoms Time Seen by Provider: 10:06 Travel History International Travel<30 days: No Contact w/Intl Traveler<30days: No Traveled to known affect area: No History of Present Illness HPI 57-year-old female presents to the emergency department for evaluation of chest congestion, chest tightness, cough, shortness of breath that started 4 days ago. She states that she started with dyspnea with exertion yesterday. She states she can only walk approximately 10 feet without becoming short of breath. Patient has history of cardiac stent and hypertension. She states that she has no insurance and cannot afford medications. She has not been taking her medications. She has not had follow-up with limnologist. Patient states she feels like she has an infection. She has not taken her temperature. No abdominal pain. No vomiting. Exacerbating factors exertion. No alleviating factors. Moderate severity. PFSH Past Medical History Arthritis: Yes (right side) Anxiety: No Depression: No Cancer: No Cardiac Catheterization: Yes (stents) Cardiovascular Problems: Yes High Cholesterol: Yes Chemotherapy: No Chest Pain: Yes Cerebrovascular Accident: No Coronary Artery Disease: Yes Diabetes: No Diminished Hearing: No Endocrine: No Genitourinary: No Hypertension: Yes Immune Disorder: Yes (ARTHRITIS) Musculoskeletal: Yes Neurologic: Yes Psychiatric: No Reproductive: No Respiratory: Yes (COPD) Immunizations Current: Yes Migraines: No Radiation Therapy: No Seizures: No Thyroid Disease: No ?: Not Menopausal: Yes : 5 Para: 1 Miscarriage: 2 : 2 Ovarian Cysts: Yes Past Surgical History Abdominal Surgery: Yes (APPENDECTOMY) AICD: No Appendectomy: Yes Insulin Pump: No Other Surgery: Yes Social History Alcohol Use: Yes (moderate-several x's weekly ) Tobacco Use: Yes (1 PPD) Substance Use: No Allergies-Medications (Allergen,Severity, Reaction): Coded Allergies: No Known Allergies (Verified Allergy, Unknown, 01/27/18) Reported Meds & Prescriptions Reported Meds & Active Scripts Active Tgt Aspirin (Aspirin) 81 Mg Chw 81 Mg CHEW DAILY 60 Days Review of Systems Except as stated in HPI: all other systems reviewed are Neg Physical Exam Narrative GENERAL: Well-nourished, well-developed female patient, afebrile. SKIN: Focused skin assessment warm/dry. HEAD: Normocephalic. Atraumatic. ENT: Mucosa pink and moist. No erythema or exudates. No uvular edema. No uvular , palatal, or tonsillar deviation. Airway patent. Nasal turbinates appear normal without nasal blood, purulent drainage or septal hematoma. Bilateral tympanic membranes clear without erythema or perforation. EYES: No scleral icterus. No injection or drainage. NECK: Supple, trachea midline. No JVD or lymphadenopathy. CARDIOVASCULAR: Regular rhythm without murmurs, gallops, or rubs. Patient is tachycardic with heart rate in the 120s. RESPIRATORY: Breath sounds equal bilaterally. No accessory muscle use. Patient has expiratory wheezing and rhonchi noted throughout. GASTROINTESTINAL: Abdomen soft, non-tender, nondistended. MUSCULOSKELETAL: No cyanosis, or edema. BACK: Nontender without obvious deformity. No CVA tenderness. Data Data Last Documented VS Vital Signs Date Time Temp Pulse Resp B/P (MAP) Pulse Ox O2 Delivery O2 Flow Rate FiO2 01/27/18 12:35 109 20 129/59 (82) Nasal Cannula 2.00 01/27/18 11:30 86 01/27/18 10:01 99.7 Orders Orders Complete Blood Count With Diff (01/27/18 10:14) Basic Metabolic Panel (Bmp) (01/27/18 10:14) D-Dimer (01/27/18 10:14) Act Partial Throm Time (Ptt) (01/27/18 10:14) Prothrombin Time / Inr (Pt) (01/27/18 10:14) Magnesium (Mg) (01/27/18 10:14) Ckmb (Isoenzyme) Profile (01/27/18 10:14) Troponin I (01/27/18 10:14) Iv Access Insert/Monitor (01/27/18 10:14) Electrocardiogram (01/27/18 10:14) Ecg Monitoring (01/27/18 10:14) Oximetry (01/27/18 10:14) Oxygen Administration (01/27/18 10:14) Chest, Pa & Lat (01/27/18 10:14) Sodium Chloride 0.9% Flush (Ns Flush) (01/27/18 10:15) Methylprednisolone So Succ Inj (Solumedr (01/27/18 10:15) Albuterol-Ipratropium Neb (Duoneb Neb) (01/27/18 10:15) CKMB (01/27/18 10:15) CKMB% (01/27/18 10:15) Ct Pulmonary Angiogram (01/27/18 ) Iohexol 350 Inj (Omnipaque 350 Inj) (01/27/18 11:59) Blood Culture (01/27/18 12:36) Lactic Acid Sepsis Protocol (01/27/18 12:36) Ceftriaxone Inj (Rocephin Inj) (01/27/18 12:45) Azithromycin Inj (Zithromax Inj) (01/27/18 12:45) Admit Order (Ed Use Only) (01/27/18 13:04) Labs Laboratory Tests Test 01/27/18 10:15 01/27/18 12:40 White Blood Count 9.5 TH/MM3 Red Blood Count 4.32 MIL/MM3 Hemoglobin 14.4 GM/DL Hematocrit 43.2 % Mean Corpuscular Volume 100.1 FL Mean Corpuscular Hemoglobin 33.3 PG Mean Corpuscular Hemoglobin Concent 33.3 % Red Cell Distribution Width 13.6 % Platelet Count 247 TH/MM3 Mean Platelet Volume 7.8 FL Neutrophils (%) (Auto) 79.8 % Lymphocytes (%) (Auto) 9.6 % Monocytes (%) (Auto) 7.9 % Eosinophils (%) (Auto) 0.3 % Basophils (%) (Auto) 2.4 % Neutrophils # (Auto) 7.6 TH/MM3 Lymphocytes # (Auto) 0.9 TH/MM3 Monocytes # (Auto) 0.8 TH/MM3 Eosinophils # (Auto) 0.0 TH/MM3 Basophils # (Auto) 0.2 TH/MM3 CBC Comment DIFF FINAL Differential Comment Prothrombin Time 9.2 SEC Prothromb Time International Ratio 0.9 RATIO Activated Partial Thromboplast Time 25.5 SEC D-Dimer Quantitative (PE/DVT) 0.85 MG/L FEU Blood Urea Nitrogen 16 MG/DL Creatinine 0.57 MG/DL Random Glucose 173 MG/DL Calcium Level 9.4 MG/DL Magnesium Level 2.0 MG/DL Sodium Level 137 MEQ/L Potassium Level 4.4 MEQ/L Chloride Level 99 MEQ/L Carbon Dioxide Level 31.5 MEQ/L Anion Gap 7 MEQ/L Estimat Glomerular Filtration Rate 109 ML/MIN Total Creatine Kinase 165 U/L Creatine Kinase MB 1.8 NG/ML Troponin I LESS THAN 0.02 NG/ML MDM Medical Decision Making Medical Screen Exam Complete: Yes Emergency Medical Condition: Yes Medical Record Reviewed: Yes Interpretation(s) chest x-ray - CONCLUSION: 1. Left upper lobe cavitary lesion/nodule measures approximately 1.8 cm, slightly decreased in size from the prior CT and definitively decreased in size from the prior chest x-ray. 2. No other acute finding is identified. CT PA - CONCLUSION: 1. No PE is identified. 2. Bilateral cavitary nodules are present with a new 16 mm right lower lobe cavitary nodule and enlargement of an additional right lower lobe cavitary nodule. Additionally, there are multifocal areas of groundglass opacity and tree in bud opacity bilaterally. The cavitary nodules raise suspicion for metastatic disease or septic emboli. Differential Diagnosis Pneumonia versus bronchitis versus PE versus ACS Narrative Course 57-year-old female presents to the emergency department for evaluation of chest congestion, chest tightness, cough, shortness of breath for 4 days. Patient does have history of cardiac stent and hypertension, does not take medications. On exam, patient is extra wheezing and rhonchi noted throughout. IV access established. EKG, CBC, BMP, magnesium, CK, troponin, PTT, PT/INR, d-dimer, chest x-ray ordered and pending. Patient is given DuoNeb 3 and Solu-Medrol 125 mg IV. EKG shows sinus tachycardia, heart rate 106, no acute ST changes. CBC shows no acute abnormality. BMP shows hyperglycemia 173. Magnesium is 2.0. CK is 165. Troponin is less than 0.02. Coags show no acute abnormality. D-dimer is 0.85. Chest x-ray shows Left upper lobe cavitary lesion/nodule measures approximately 1.8 cm, slightly decreased in size from the prior CT and definitively decreased in size from the prior chest x-ray; No other acute finding is identified. CT pulmonary angiogram is ordered and shows No PE, No PE is identified; 2. Bilateral cavitary nodules are present with a new 16 mm right lower lobe cavitary nodule and enlargement of an additional right lower lobe cavitary nodule. Additionally, there are multifocal areas of groundglass opacity and tree in bud opacity bilaterally. The cavitary nodules raise suspicion for metastatic disease or septic emboli. During visit, oxygen saturation continually has been decreasing to 85-86% on room air. Patient is placed on 2 L O2 nasal cannula. I discussed the case with my attending physican, Dr. Martinez. Blood cultures and lactic acid ordered and pending. Patient started on Rocephin and azithromycin. Patient will be admitted for metastatic disease versus pneumonia versus abscess versus TB. Dr. Cedillo accepted admission. Sepsis Criteria SIRS Criteria (2 or more): Heart rate over 90 Diagnosis Primary Impression: Cavitary lesion of lung Additional Impression: Dyspnea Qualified Codes: R06.09 - Other forms of dyspnea Admitting Information Admitting Physician Requests: Admit Jeanne Jackson January 27, 2018 10:19
[2018-01-27 10:35] LABS: AUTOMATED NEUTROPHIL # 7.6 TH/MM3 (1.8-7.7); BASOPHIL # 0.2 TH/MM3 (0-0.2); BASOPHIL % 2.4 % (0.0-2.0); EOSINOPHIL % 0.3 % (0.0-4.0); HEMATOCRIT 43.2 % (35.0-46.0); HEMOGLOBIN 14.4 GM/DL (11.6-15.3); LYMPH % 9.6 % (9.0-44.0); LYMPHOCYTE # 0.9 TH/MM3 (1.0-4.8); MEAN CELL VOLUME 100.1 FL (80.0-100.0); MEAN CORPUSCULAR HEMOGLOBIN 33.3 PG (27.0-34.0); MEAN CORPUSCULAR HGB CONC 33.3 % (32.0-36.0); MEAN PLATELET VOLUME 7.8 FL (7.0-11.0); MONO % 7.9 % (0.0-8.0); MONOCYTE # 0.8 TH/MM3 (0-0.9); NEUT % 79.8 % (16.0-70.0); PLATELET COUNT 247 TH/MM3 (150-450); RED BLOOD COUNT 4.32 MIL/MM3 (4.00-5.30); RED CELL DISTRIBUTION WIDTH 13.6 % (11.6-17.2); WHITE BLOOD COUNT 9.5 TH/MM3 (4.0-11.0)
[2018-01-27 10:50] LABS: CHLORIDE 99 MEQ/L (98-107); SODIUM (NA) 137 MEQ/L (136-145)
[2018-01-27 10:53] LABS: BICARBONATE 31.5 MEQ/L (21.0-32.0); BLOOD UREA NITROGEN 16 MG/DL (7-18); CALCIUM 9.4 MG/DL (8.5-10.1); GLUCOSE,RANDOM 173 MG/DL (74-106)
[2018-01-27 10:57] LABS: CREATININE 0.57 MG/DL (0.50-1.00); D-DIMER 0.85 MG/L FEU (0.00-0.50); GLOMERULAR FILTRATION RATE 109 ML/MIN (>89); INTERNATIONAL NORMALIZED RATIO 0.9 RATIO; PROTHROMBIN TIME - PATIENT 9.2 SEC (9.8-11.6)
[2018-01-27 11:02] LABS: TROPONIN I LESS THAN 0.02 NG/ML (0.02-0.05)
--- NOTE | 2018-01-27 11:48 | RADRPT ---
EXAM DATE/TIME: 01/27/2018 10:58 [facility] COMPARISON: CT THORAX W CONTRAST, October 21, 2017, 11:06. CHEST PA & LAT, August 12, 2017, 20:44. INDICATIONS : Short of breath, cough, chest pains MEDICAL HISTORY : Chronic obstructive pulmonary disease. Cardiovascular disease. SURGICAL HISTORY : Coronary artery stent. ENCOUNTER: Initial ACUITY: 4 - 6 days PAIN SCORE: 7/10 LOCATION: Bilateral chest FINDINGS: Frontal and lateral views of the chest demonstrate a normal-sized cardiac silhouette with calcificati on of the aorta. There is a cavitary lesion/nodule in the left upper lobe measuring approximately 1.8 cm. The left perihilar cavitary nodule described on the prior chest CT is not definitely seen on thi s examination. No pleural effusion or airspace consolidation is seen. There is no pneumothorax. Bones and soft tissues demonstrate no acute finding. CONCLUSION: 1. Left upper lobe cavitary lesion/nodule measures approximately 1.8 cm, slightly decreased in size f rom the prior CT and definitively decreased in size from the prior chest x-ray. 2. No other acute finding is identified. Dany Sharma MD on January 27, 2018 at 11:44 Board Certified Radiologist. This report was verified electronically.
[2018-01-27] MEDS ORDERED: IOHEXOL 350 MG/ML 10 ML VIAL (for RAD DIAG) IVCONTRAST ONE (11:59)
--- NOTE | 2018-01-27 12:28 | RADRPT ---
EXAM DATE/TIME: 01/27/2018 11:50 [facility] COMPARISON: CT THORAX W CONTRAST, October 21, 2017, 11:06. CT THORAX W CONTRAST, August 12, 2017, 22:15. CHES T PA & LAT, January 27, 2018, 10:58. INDICATIONS : Short of breath and productive cough. IV CONTRAST: 65 cc Omnipaque 350 (iohexol) IV RADIATION DOSE: 7.13 CTDIvol (mGy) MEDICAL HISTORY : Cardiovascular disease. Hypertension. Chronic obstructive pulmonary disease. SURGICAL HISTORY : Coronary artery stent. Appendectomy. ENCOUNTER: Initial ACUITY: 3 days PAIN SCALE: 0/10 LOCATION: chest TECHNIQUE: Volumetric scanning of the chest was performed using a pulmonary embolism protocol MIP images were re constructed. Using automated exposure control and adjustment of the mA and/or kV according to patien t size, radiation dose was kept as low as reasonably achievable to obtain optimal diagnostic quality images. DICOM format image data is available electronically for review and comparison. Follow-up recommendations for detected pulmonary nodules are based at a minimum on nodule size and pa tient risk factors according to Fleischner Society Guidelines. FINDINGS: PULMONARY ARTERIES: No filling defects are seen in the pulmonary arteries through the segmental level. LUNGS: There is a mildly thick walled irregular cavitary lesion in the left upper lobe measuring 2.0 x 1.4 c m, stable from the prior study. There is also irregular nodular opacity in the left suprahilar region of the left upper lobe. Multiple new patchy areas of groundglass attenuation are present bilaterally and there is a new cavitary nodule in the right lower lobe measuring 16 mm. The partially cavitary i rregular nodule in the right lower lobe measuring 19 x 16 mm has increased in size. Mild tree in bud opacity is present in the right upper lobe. No pneumothorax is present. PLEURAE: There is no pleural thickening or pleural effusion. MEDIASTINUM: The heart and great vessels demonstrate no acute finding. There is coronary artery calcification and atherosclerotic disease of the aorta. An enlarged right hilar lymph node is present measuring 12 mm i n short axis diameter. There is additional right hilar lymph node tissue present. MUSCULOSKELETAL: There are degenerative changes of the thoracic spine with pectus excavatum. MISCELLANEOUS: The visualized upper abdominal organs demonstrate no acute abnormality. CONCLUSION: 1. No PE is identified. 2. Bilateral cavitary nodules are present with a new 16 mm right lower lobe cavitary nodule and enlar gement of an additional right lower lobe cavitary nodule. Additionally, there are multifocal areas of groundglass opacity and tree in bud opacity bilaterally. The cavitary nodules raise suspicion for me tastatic disease or septic emboli. Dany Sharma MD on January 27, 2018 at 12:10 Board Certified Radiologist. This report was verified electronically.
[2018-01-27] MEDS ORDERED: cefTRIAXone INJ 1,000 MG in SODIUM CHLORIDE 0.9% INJ 100 ML IV ONE (12:45)
[2018-01-27] MEDS ORDERED: AZITHROMYCIN INJ 500 MG in SODIUM CHLOR 0.9% 250 ML INJ 250 ML IV ONE (12:45)
[2018-01-27] MEDS ORDERED: AZITHROMYCIN INJ 500 MG in SODIUM CHLOR 0.9% 250 ML INJ 250 ML IV SCH ×2 (14:00→16:00)
--- NOTE | 2018-01-27 14:49 | EKG ---
Date Performed: 01/27/2018 Time Performed: 10:26:28 PTAGE: 57 years EKG: SINUS TACHYCARDIA POSSIBLE LEFT ATRIAL ENLARGEMENT When compared to previous tracing, sinus rate is slightlyn faster. ABNORMAL RHYTHM ECG PREVIOUS TRACING : 10/20/2017 22.10 DOCTOR: Ishaan Landeros Interpretating Date/Time 01/27/2018 14:49:11
[2018-01-27] MEDS ORDERED: RESP: ALBUTEROL 2.5 MG/IPRATROPIUM 0.5 MG NEB (PRN) NEB (15:00)
[2018-01-27] MEDS ORDERED: cefTRIAXone INJ 1,000 MG in SODIUM CHLORIDE 0.9% INJ 100 ML IV SCH (15:00)
--- NOTE | 2018-01-27 15:14 | HHI.HP ---
[facility] Primary Care Physician No Primary Care Physician Admission Diagnosis Cavitary lung lesions, dyspnea Diagnoses: (1) Cavitary lesion of lung (2) Dyspnea (3) Chest tightness (4) CAD (coronary artery disease) (5) Tobacco abuse Chief Complaint: Shortness of breath Travel History International Travel<30 Days: No Contact w/Intl Traveler <30 Da: No Traveled to Known Affected Are: No History of Present Illness This is a 57-year-old female patient with a known medical history of CAD with stent placement, hyperlipidemia, alcohol abuse and tobacco abuse who presented to the ED with complaints of shortness of breath for 4 days. Patient states that yesterday while at work her dyspnea worsened, especially with exertion. She states that she has been coughing for several days with productive yellow phlegm. Admits to poor appetite. Also admits to losing a large amount of weight during the past few months. Does admit to chills, denies any fevers, for the same issues. 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 Is prescribed Plavix and aspirin, states she does take her aspirin. Supposedly patient has an appointment with the [facility] coming up. CTA upon presentation showing no evidence of PE. Bilateral cavitary nodules with a new 16 mm right lower lobe cavitary nodule noted. Requiring 4 L nasal cannula at this time. Review of Systems Constitutional: COMPLAINS OF: Chills, DENIES: Fever Eyes: DENIES: Blurred vision, Diplopia Respiratory: COMPLAINS OF: Cough, Sputum production, Shortness of breath Cardiovascular: COMPLAINS OF: Chest pain, Palpitations Gastrointestinal: DENIES: Abdominal pain, Black stools, Bloody stools, Constipation, Diarrhea, Nausea, Vomiting Musculoskeletal: DENIES: Joint pain Hematologic/lymphatic: DENIES: Bruising Neurologic: DENIES: Abnormal gait Psychiatric: COMPLAINS OF: Anxiety Except as stated in HPI: all other systems reviewed are Neg Past Family Social History Past Medical History CAD with history of PA and cardiac stent placement Hyperlipidemia Hypertension Arthritis COPD neck sign tobacco abuse Past Surgical History Appendectomy Cardiac catheterization with stent placement Reported Medications Active Aspirin (Aspirin) 81 Mg Chw 81 Mg CHEW DAILY 60 Days Patient is prescribed other medications but have not been taking them due to insurance and monetary reasons Allergies: Coded Allergies: No Known Allergies (Verified Allergy, Unknown, 01/27/18) Active Ordered Medications Current Medications Medications (Trade) Dose Ordered Sig/Alison Route Start Time Stop Time Status Last Admin (NS Flush) 2 ml UNSCH PRN IVF 01/27/18 10:15 Family History Maternal medical history significant for lung cancerPatient admits to smoking one pack per day cigarettes since since her teenage years. Continued alcohol use , has been trying to quit. Denies any illicit drug use. Social History Does admit to smoking 1 pack per day cigarettes, although since she has had this dyspnea she smoked 6 cigarettes a day. Admits to drinking a few alcoholic drinks per week. Denies any illicit drug use. Physical Exam Vital Signs Vital Signs Date Time Temp Pulse Resp B/P (MAP) Pulse Ox O2 Delivery O2 Flow Rate FiO2 01/27/18 14:36 01/27/18 13:40 97 20 149/66 (93) 95 01/27/18 12:35 109 20 129/59 (82) Nasal Cannula 2.00 01/27/18 11:30 112 86 Nasal Cannula 2.00 01/27/18 10:52 125 20 150/57 (88) 99 01/27/18 10:33 99 01/27/18 10:01 99.7 124 18 143/75 (97) 95 Physical Exam GENERAL: Well-developed, well-nourished patient in NAD. On supplemental O2. SKIN: Warm and dry. No rash. HEAD: Normocephalic. Atraumatic. EYES: Pupils equal and round. No scleral icterus. No injection or drainage. ENT: No nasal bleeding or discharge. Mucous membranes pink and moist. NECK: Supple. Trachea midline. CARDIOVASCULAR: Regular rate and rhythm. S1, S2 noted. No murmur appreciated. No chest pain to palpation. RESPIRATORY: No accessory muscle use. Right lower lobe posterior lung ramirez diminished. Left posterior lung ramirez clear. Breath sounds equal bilaterally. GASTROINTESTINAL: Abdomen soft, non-tender, nondistended. Normoactive bowel sounds x4. MUSCULOSKELETAL: No obvious deformities. Extremities without clubbing, cyanosis , or edema. NEUROLOGICAL: Awake and alert. No obvious cranial nerve deficits. Motor grossly within normal limits. 5/5 muscle strength in bilateral upper and lower extremities. Normal speech. PSYCHIATRIC: Appropriate mood and affect; insight and judgment normal. Laboratory Laboratory Tests Test 01/27/18 10:15 01/27/18 13:15 White Blood Count 9.5 Red Blood Count 4.32 Hemoglobin 14.4 Hematocrit 43.2 Mean Corpuscular Volume 100.1 Mean Corpuscular Hemoglobin 33.3 Mean Corpuscular Hemoglobin Concent 33.3 Red Cell Distribution Width 13.6 Platelet Count 247 Mean Platelet Volume 7.8 Neutrophils (%) (Auto) 79.8 Lymphocytes (%) (Auto) 9.6 Monocytes (%) (Auto) 7.9 Eosinophils (%) (Auto) 0.3 Basophils (%) (Auto) 2.4 Neutrophils # (Auto) 7.6 Lymphocytes # (Auto) 0.9 Monocytes # (Auto) 0.8 Eosinophils # (Auto) 0.0 Basophils # (Auto) 0.2 CBC Comment DIFF FINAL Differential Comment Prothrombin Time 9.2 Prothromb Time International Ratio 0.9 Activated Partial Thromboplast Time 25.5 D-Dimer Quantitative (PE/DVT) 0.85 Blood Urea Nitrogen 16 Creatinine 0.57 Random Glucose 173 Calcium Level 9.4 Magnesium Level 2.0 Sodium Level 137 Potassium Level 4.4 Chloride Level 99 Carbon Dioxide Level 31.5 Anion Gap 7 Estimat Glomerular Filtration Rate 109 Total Creatine Kinase 165 Creatine Kinase MB 1.8 Troponin I LESS THAN 0.02 Lactic Acid Level 1.4 Date/Time Source Procedure Growth Status 01/27/18 12:40 Blood Peripheral Aerobic Blood Culture Pending Received 01/27/18 12:40 Blood Peripheral Anaerobic Blood Culture Pending Received Result Diagram: 01/27/18 1015 01/27/18 1015 Imaging Last Impressions Chest X-Ray 01/27/18 1014 Signed Impressions: Service Date/Time: Saturday, January 27, 2018 10:58 - CONCLUSION: 1. Left upper lobe cavitary lesion/nodule measures approximately 1.8 cm, slightly decreased in size from the prior CT and definitively decreased in size from the prior chest x-ray. 2. No other acute finding is identified. Dany Sharma MD CT Angiography 01/27/18 0000 Signed Impressions: Service Date/Time: Saturday, January 27, 2018 11:50 - CONCLUSION: 1. No PE is identified. 2. Bilateral cavitary nodules are present with a new 16 mm right lower lobe cavitary nodule and enlargement of an additional right lower lobe cavitary nodule. Additionally, there are multifocal areas of groundglass opacity and tree in bud opacity bilaterally. The cavitary nodules raise suspicion for metastatic disease or septic emboli. Dany Sharma MD Septic Shock Reassessment Septic shock perfusion: reassessment completed Caprini VTE Risk Assessment Caprini VTE Risk Assessment: No/Low Risk (score <= 1) Caprini Risk Assessment Model Point Value = 1 Point Value = 2 Point Value = 3 Point Value = 5 Age 41-60 Minor surgery BMI > 25 kg/m2 Swollen legs Varicose veins or History of unexplained or recurrent spontaneous Oral contraceptives or hormone replacement Sepsis (< 1 month) Serious lung disease, including pneumonia (< 1 month) Abnormal pulmonary function Acute myocardial infarction Congestive heart failure (< 1 month) History of inflammatory bowel disease Medical patient at bed rest Age 61-74 Arthroscopic surgery Major open surgery (> 45 min) Laparoscopic surgery (> 45 min) Malignancy Confined to bed (> 72 hours) Immobilizing plaster cast Central venous access Age >= 75 History of VTE Family history of VTE Factor V Leiden Prothrombin [id number] Lupus anticoagulant Anticardiolipin antibodies Elevated serum homocysteine Heparin-induced thrombocytopenia Other congenital or acquired thrombophilia Stroke (< 1 month) Elective arthroplasty Hip, pelvis, or leg fracture Acute spinal cord injury (< 1 month) Prophylaxis Regimen Total Risk Factor Score Risk Level Prophylaxis Regimen 0-1 Low Early ambulation 2 Moderate Order ONE of the following: *Sequential Compression Device (SCD) *Heparin 5000 units SQ BID 3-4 Higher Order ONE of the following medications: *Heparin 5000 units SQ TID *Enoxaparin/Lovenox 40 mg SQ daily (WT < 150 kg, CrCl > 30 mL/min) *Enoxaparin/Lovenox 30 mg SQ daily (WT < 150 kg, CrCl > 10-29 mL/min) *Enoxaparin/Lovenox 30 mg SQ BID (WT < 150 kg, CrCl > 30 mL/min) AND/OR *Sequential Compression Device (SCD) 5 or more Highest Order ONE of the following medications: *Heparin 5000 units SQ TID (Preferred with Epidurals) *Enoxaparin/Lovenox 40 mg SQ daily (WT < 150 kg, CrCl > 30 mL/min) *Enoxaparin/Lovenox 30 mg SQ daily (WT < 150 kg, CrCl > 10-29 mL/min) *Enoxaparin/Lovenox 30 mg SQ BID (WT < 150 kg, CrCl > 30 mL/min) AND *Sequential Compression Device (SCD) Assessment and Plan Assessment and Plan Ms. Carnes is a 57-year-old female patient with a known medical history of CAD with stent placement, hyperlipidemia, alcohol abuse and tobacco abuse who presented to the ED with complaints of chest tightness. Cavitary mass right lower lobe, chronic with associated dyspnea and hypoxia requiring supplemental O2. - D-dimer elevated. - CT angiography showing no PE. Bilateral cavitary nodules with a new 16 mm right lower lobe cavitary nodule seen with enlargement of an additional right lower lobe cavitary nodule. Groundglass opacity and tree-in-bud opacities bilaterally. - Suspicion for metastatic disease or septic emboli. - Consult placed to pulmonology, appreciate input recommendations. Consult also placed to oncology, appreciate recommendations. - CBC and BMP reviewed essentially unremarkable. WBC WNL. Afebrile. Monitor for infection. - Duonebs available PRN. Supplemental O2 as needed, requiring 4 L nasal cannula at this time. - Will start on IV steroids. - Supportive care. Atypical chest pain - Suspect secondary to noncompliance with medication for cardiac stents. - Serial troponins and serial EKGs have been ordered for ruling out ACS purposes. Initial Troponin flat. Follow trend. - Control pain, [place] PO PRN as need per pain scale. Morphine IV PRN as needed per pain scale. History of CAD with stent placement: Continue home Plavix. Continue home Ramipril, metoprolol and aspirin. Noncompliant with Dyslipidemia: Continue home Atorvastatin. Alcohol abuse: Patient counselled on cessation. Monitor for withdrawals. CIWA protocol initiated. Continue multivitamin, folic acid and thiamine. Tobacco abuse: Counselled on cessation. DVT prophylaxis: SCDs. Physician Certification 2 Midnight Certification Type: Admission for Inpatient Services Order for Inpatient Services The services are ordered in accordance with Medicare regulations or non- Medicare payer requirements, as applicable. In the case of services not specified as inpatient-only, they are appropriately provided as inpatient services in accordance with the 2-midnight benchmark. Estimated LOS (days): 3 3 days is the estimated time the patient will need to remain in the hospital, assuming treatment plan goals are met and no additional complications. Post-Hospital Plan: Not yet determined Problem Qualifiers (1) Dyspnea: Qualified Codes: R06.09 - Other forms of dyspnea Lakshmi Benjamin January 27, 2018 15:14
[2018-01-27] MEDS: CLOPIDOGREL 75 MG TAB PO SCH (15:24)
[2018-01-27] MEDS: ASPIRIN 81 MG CHEW TAB CHEW SCH (15:25)
[2018-01-27] MEDS ORDERED: ACETAMINOPHEN/HYDROcodone 325 MG/5 MG TAB PO PRN (15:30)
[2018-01-27] MEDS ORDERED: MORPHINE SULFATE 4 MG/ML INJ IV PUSH PRN (15:30)
[2018-01-27] MEDS ORDERED: LORazepam 2 MG TAB PO PRN (15:30)
[2018-01-27] MEDS ORDERED: LORazepam 1 MG TAB PO PRN (15:30)
[2018-01-27] MEDS ORDERED: ACETAMINOPHEN 325 MG TAB PO PRN (15:30)
[2018-01-27] MEDS ORDERED: FLUMAZENIL 0.5 MG/5 ML VIAL IV PUSH PRN (15:30)
[2018-01-27] MEDS ORDERED: LORazepam 2 MG/ML VIAL IV PUSH PRN ×4 (15:30)
[2018-01-27] MEDS: RAMIPRIL 2.5 MG CAP PO SCH (15:44)
[2018-01-27] MEDS: ACETAMINOPHEN/HYDROcodone 325 MG/5 MG TAB PO PRN ×2 (15:49→21:10)
[2018-01-27 17:16] LABS: TROPONIN I LESS THAN 0.02 NG/ML (0.02-0.05)
[2018-01-27] MEDS ORDERED: methylPREDNISolone SOD SUCC 40 MG/1 ML VIAL IV PUSH SCH (18:00)
--- NOTE | 2018-01-27 19:32 | MB ---
cc: Juanpablo De Leon MD, V J MD DATE: 01/27/2018 REASON FOR CONSULTATION: Respiratory distress and cavitary lung lesions HISTORY OF PRESENT ILLNESS: This is a 57-year-old white female who has a longstanding history of smoking, has been coughing, congested, bringing up some yellow mucus and became quite short of breath over the past 2 days. The patient states that she could not ambulate due to severe shortness of breath and, thus, she came to the hospital for evaluation. A CT of the chest was then done which showed no evidence of pulmonary emboli, but she did have bilateral cavitary lung lesions which are nodular and a new 16 mm right lower lobe cavitary nodule was seen as well. The patient has had similar cavitary lesions noted since July of last year and apparently has taken antibiotics in the past, but no biopsies OR investigations were completed. She has no hemoptysis. She has lost weight up to 10 pounds. No nausea, vomiting or history of aspiration. PAST MEDICAL HISTORY: Included history of hypertension and hyperlipidemia, history of chronic obstructive pulmonary disease and chronic bronchitis, history of arthritis as well as coronary artery disease with stenting and previous NE. PAST SURGICAL HISTORY: Includes appendectomy and cardiac catheterizations. ALLERGIES: ASPIRIN. HABITS: The patient smokes 1 pack per day, has done so for over 35 years. Alcohol use minimal at this time. She works at the [employer]. FAMILY HISTORY: Noncontributory. REVIEW OF SYSTEMS: The patient has lost weight. She has sinus disease, postnasal drip. She has cough with expectoration. She has epigastric distress and reflux. She has urinary frequency and denies any leg swelling or calf muscle pain. She has some joint pains of her extremities and some anxiety. PHYSICAL EXAMINATION: GENERAL: This is a thinly built middle-aged white female who is alert, pale and mildly dyspneic at rest. VITAL SIGNS: Blood pressure 130/70, pulse 95, respirations 22, temperature 99.7. HEENT: Head is normocephalic. Pupils are reactive and equal. Tongue was moist. Throat was injected. Nasal mucosa is clear. NECK: Supple, no bruits, no thyroid enlargement or lymphadenopathy. CHEST: Distant breath sounds with expiratory wheezes bilaterally, prolonged expirations. HEART: The heart sounds are regular S1, S2 with no murmur. No S3. ABDOMEN: Soft, scaphoid, without masses. No organomegaly or tenderness. Bowel sounds are active. EXTREMITIES: No lesions, no edema, no calf tenderness. NEUROLOGIC: Reflexes are 1+ with no gross motor deficits. Cranial nerves grossly intact. SKIN: No lesions. IMPRESSION: 1. Chronic obstructive pulmonary disease with acute exacerbation. 2. Bilateral cavitary lung nodules, rule out metastatic disease versus infectious etiology like granulomatous disease. 3. Nicotine dependency. 4. History of hypertension. 5. Coronary artery disease status post stenting. PLAN: The patient has been started on antibiotic coverage including Levaquin 750 mg IV daily and Rocephin 1 gram IV daily. She was advised that a CT-guided needle biopsy of one of the lung lesions might give us some idea as to the etiology of these lesions. Also get a pulmonary function study at the bedside. Nebulized DuoNeb solution added q.i.d. and continue with Solu-Medrol 40 mg IV every 8 hours. The patient was counseled about quitting cigarette smoking and use a nicotine patch 14 mg per 24 hours. Followup chest x-ray to be done as well as CBC. Sputum culture and Gram stain and AFB culture. Blood cultures are pending. I will follow the case with you, Dr. Cedillo. Thank you for this consultation. Juanpablo De Leon MD VJD/ , 06:33 PM , 07:30 PM
[2018-01-27] MEDS: RESP: ALBUTEROL 2.5 MG/IPRATROPIUM 0.5 MG NEB (SCH) NEB (20:01)
[2018-01-27] MEDS ORDERED: HEPARIN SODIUM - SQ 10,000 UNITS/ML VIAL SQ SCH (21:00)
[2018-01-27] MEDS: LEVOFLOXACIN 750 MG PREMIX INJ 150 ML IV SCH (21:29)
[2018-01-27] MEDS: ATORVASTATIN 20 MG TAB PO SCH (21:29)
[2018-01-27] MEDS: METOPROLOL TARTRATE 25 MG TAB PO SCH (21:29)
[2018-01-27] MEDS: methylPREDNISolone SOD SUCC 40 MG/1 ML VIAL IV PUSH SCH (21:31)
[2018-01-27] MEDS: SODIUM CHLORIDE 0.9% FLUSH 10 ML FLUSH IVF PRN (21:31)
[2018-01-27 22:11] LABS: TROPONIN I LESS THAN 0.02 NG/ML (0.02-0.05)
[2018-01-27] MEDS: LORazepam 0.5 MG TAB PO PRN (23:17)
[2018-01-28] VITALS (11 sets, daily range): BP systolic 132–176; BP diastolic 60–80; PULSE 63–93; RESP 16–20; TEMP 96.3–99.1; O2SAT 90–96
[2018-01-28] MEDS ORDERED: ENALAPRILAT 1.25 MG/ML VIAL IV PUSH PRN (01:45)
[2018-01-28] MEDS: SODIUM CHLORIDE 0.9% FLUSH 10 ML FLUSH IVF PRN ×2 (04:44→20:34)
[2018-01-28] MEDS: methylPREDNISolone SOD SUCC 40 MG/1 ML VIAL IV PUSH SCH ×3 (04:44→22:54)
[2018-01-28] MEDS: ACETAMINOPHEN/HYDROcodone 325 MG/5 MG TAB PO PRN ×4 (07:55→22:53)
[2018-01-28] MEDS: RAMIPRIL 2.5 MG CAP PO SCH (07:56)
[2018-01-28] MEDS: ASPIRIN 81 MG CHEW TAB CHEW SCH (07:56)
[2018-01-28] MEDS: METOPROLOL TARTRATE 25 MG TAB PO SCH ×2 (07:56→20:32)
[2018-01-28] MEDS: CLOPIDOGREL 75 MG TAB PO SCH (07:56)
[2018-01-28] MEDS: RESP: ALBUTEROL 2.5 MG/IPRATROPIUM 0.5 MG NEB (SCH) NEB ×3 (08:00→19:32)
--- NOTE | 2018-01-28 09:15 | MB ---
cc: Patrick Oden MD DATE: 01/28/2018 CHIEF COMPLAINT: Cavitary lesion in the left lung. PATIENT PROFILE: The patient is a 57-year-old white female. She has been twice. She is . She has a daughter, age 37. She was born in [place]. 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 She has smoked a pack of cigarettes per day for 32 years and continues to smoke. She will have 2-3 drinks during the week. She drank heavily in the 1980s, but currently does not. HISTORY OF PRESENT ILLNESS: The patient is a 57-year-old female whose history dates back to 07/2017. She was evaluated for chest pain and was found to have a cavitary mass in the peripheral left upper lobe. There was a smaller mass seen centrally in the left upper lobe, adjacent to the hilum. It was felt that infection was likely, although a cavitary malignancy could not be excluded. There was no lymphadenopathy and there was mild emphysema. In talking to the patient, a needle biopsy was planned, but it took a while to make the necessary arrangements and she became inpatient and left. She had another CT of the chest on 10/21/2017, which again showed the mass in the left upper lobe laterally, it had decreased in size when compared to the study of 08/12/2017, measuring 2.5 cm, where it previously measured 3.5 cm. There was a left perihilar shaped opacity on image 24, there was mild cavitation in this opacity measuring 1.8 cm compared to previous 2 cm. Again, the findings were suggestive of an inflammatory process, but malignancy still could not be ruled out. She is now admitted to the hospital because of increasing shortness of breath over several days. She had a CT angiogram. Bilateral cavitary nodules are present with a new 16 mm right upper lobe cavitary nodule and enlargement of an additional right lower lobe cavitary nodule. There are multifocal areas of ground glass opacity and tree-in-bud opacities bilaterally. The radiologist commented "the cavitary nodules are suspicious for metastatic disease or septic emboli. The major change in the patient's health has been worsening shortness of breath over many months. She continues to smoke as indicated above. There has been weight loss, which is not specified. She tells me that her clothes fit differently. She denies any hemoptysis. PAST SURGICAL HISTORY: 1. Coronary stent by Dr. Matute in 06/2017. 2. Appendectomy and ovarian cyst removal age 16. PAST MEDICAL HISTORY: 1. Tobacco abuse. 2. Chronic obstructive pulmonary disease. 3. Coronary artery disease. 4. Angina. 5. Hypertension. 6. Elevated cholesterol. MEDICATIONS: She takes at home: Aspirin 81 mg a day. She was given a prescription for Plavix, Lopressor and Altace, but does not take this. This is possibly due to economic reasons. ALLERGIES: NONE. FAMILY HISTORY: The patient tells me that her mother has lung cancer and is undergoing some type of maintenance treatment. REVIEW OF SYSTEMS: HEENT: Vision is fine. Hearing is fine. CARDIOVASCULAR: Occasional chest pain when she is anxious. RESPIRATORY: She is short of breath if she walked 20 feet. GI: Unspecified weight loss. Appetite has not changed. GENITOURINARY: No dysuria, frequency, hematuria. MUSCULOSKELETAL: Some discomfort, right shoulder, arm. NEUROLOGIC: No focal weakness. No skin problems. PSYCHIATRIC: Notable for anxiety. DATA: She has not had a mammogram. LABORATORY DATA: Laboratory studies that are relevant: She did have a CAT scan of the abdomen and pelvis a year ago showing possible fecaloma in the cecum; however, a mass is difficult to exclude. Hemoglobin 14, white count 9500, platelets 247,000. Electrolytes, BUN, creatinine unremarkable, except for a bilirubin of 1.3 with a normal AST, ALT and alkaline phosphatase. PHYSICAL EXAMINATION: GENERAL: Exam reveals a slender, anxious, somewhat defensive female. VITAL SIGNS: Blood pressure 150/70, respiratory rate 18, pulse 90, afebrile. O2 saturation 94% on 2 liters. HEENT: Normocephalic. Sclerae and conjunctivae normal. Oropharynx unremarkable. BREAST: There are no breast masses. There is no adenopathy. HEART: Regular rate and rhythm. LUNGS: Expiratory wheezes bilaterally. ABDOMEN: Without hepatosplenomegaly, masses, or tenderness. EXTREMITIES: No edema. MUSCULOSKELETAL: No bone pain. NEUROLOGIC: No weakness. Cognition and affect unremarkable, except for anxiety. She tells me that she cannot miss any work for economic reasons and everything needs to be done as quickly as possible. ASSESSMENT: 1. The patient is a 57-year-old female with a cavitary lesion in the left lung and 1 or 2 other similar lesions which aer smaller. They have not been overtly progressive and malignancy is certainly possible, but an infectious etiology is likely as well. RECOMMENDATIONS: 1. The patient needs a needle biopsy of the dominant lesion which is in the left lung. This needs to be cultured. 2. If this is a malignancy, then she needs to be appropriately staged. 3. If this is not a malignancy, then it would be an infectious process and it needs to be treated accordingly and she will need followup CT scans because of the abnormalities in the lung and possibly a PET scan. She is scheduled for a needle biopsy tomorrow. I believe her shortness of breath is not related to the 2 or 3 small cavitary lesions that she has, but is related to her continued smoking and bronchitis and she will need to be treated for this. She should also have a mammogram and a colonoscopy. I am not sure how practical this is going to be given the problems that have taken place and her difficulty taking perscribged medicine and allowing for an adequate time in the hospital to complete an evaluation. Some of these problems are a result of economics. Hopefully the social work team will be able to help her obtain insurance to allow her to better pursue care. She also needs to stop smoking. If a diagnosis of cancer is established we will be happy to assume care. MD GIANCARLO Aguilar/DEEP , 08:28 AM , 09:14 AM EZ
--- NOTE | 2018-01-28 09:47 | HHI.PR ---
Subjective Remarks Follow-up cavitary mass, COPD exacerbation and chest pain. Patient seen and examined, lying in bed comfortably, medical oncologist and to see patient this morning, plan for biopsy tomorrow morning. Dyspnea has improved overnight. Still requiring supplemental O2. Denies any pain. Chest pain has resolved. Eating well, no abdominal pain, nausea or vomiting. Objective Vitals Vital Signs Date Time Temp Pulse Resp B/P (MAP) Pulse Ox O2 Delivery O2 Flow Rate FiO2 01/28/18 08:11 94 Nasal Cannula 2.00 01/28/18 08:00 97.4 92 19 151/70 (97) 96 01/28/18 04:45 84 135/80 (98) 01/28/18 00:00 71 01/28/18 00:00 98.5 68 20 176/72 (106) 93 01/27/18 20:01 98 Nasal Cannula 2.00 01/27/18 20:00 97.5 82 20 174/77 (109) 93 01/27/18 16:49 18 01/27/18 16:00 100.1 98 21 164/94 (117) 96 01/27/18 14:36 01/27/18 13:40 97 20 149/66 (93) 95 01/27/18 12:35 109 20 129/59 (82) Nasal Cannula 2.00 01/27/18 11:30 112 86 Nasal Cannula 2.00 01/27/18 10:52 125 20 150/57 (88) 99 01/27/18 10:33 99 01/27/18 10:01 99.7 124 18 143/75 (97) 95 I/O 01/27/18 01/27/18 01/27/18 01/28/18 01/28/18 01/28/18 07:00 15:00 23:00 07:00 15:00 23:00 Intake Total 720 ml 240 ml Balance 720 ml 240 ml Intake Oral 720 ml 240 ml # Voids 3 3 Result Diagram: 01/27/18 1015 01/27/18 1015 Imaging Last Impressions Chest X-Ray 01/27/18 1014 Signed Impressions: Service Date/Time: Saturday, January 27, 2018 10:58 - CONCLUSION: 1. Left upper lobe cavitary lesion/nodule measures approximately 1.8 cm, slightly decreased in size from the prior CT and definitively decreased in size from the prior chest x-ray. 2. No other acute finding is identified. Dany Sharma MD CT Angiography 01/27/18 0000 Signed Impressions: Service Date/Time: Saturday, January 27, 2018 11:50 - CONCLUSION: 1. No PE is identified. 2. Bilateral cavitary nodules are present with a new 16 mm right lower lobe cavitary nodule and enlargement of an additional right lower lobe cavitary nodule. Additionally, there are multifocal areas of groundglass opacity and tree in bud opacity bilaterally. The cavitary nodules raise suspicion for metastatic disease or septic emboli. Dany Sharma MD Objective Remarks GENERAL: Well-developed, well-nourished patient in NAD. On supplemental O2. SKIN: Warm and dry. No rash. HEAD: Normocephalic. Atraumatic. EYES: Pupils equal and round. No scleral icterus. No injection or drainage. ENT: No nasal bleeding or discharge. Mucous membranes pink and moist. NECK: Supple. Trachea midline. CARDIOVASCULAR: Regular rate and rhythm. S1, S2 noted. No murmur appreciated. No chest pain to palpation. RESPIRATORY: No accessory muscle use. Right lower lobe posterior lung ramirez diminished. Left posterior lung ramirez clear. Breath sounds equal bilaterally. GASTROINTESTINAL: Abdomen soft, non-tender, nondistended. Normoactive bowel sounds x4. MUSCULOSKELETAL: No obvious deformities. Extremities without clubbing, cyanosis , or edema. NEUROLOGICAL: Awake and alert. No obvious cranial nerve deficits. Motor grossly within normal limits. 5/5 muscle strength in bilateral upper and lower extremities. Normal speech. PSYCHIATRIC: Appropriate mood and affect; insight and judgment normal. A/P Problem List: (1) Cavitary lesion of lung ICD Code: J98.4 - Other disorders of lung Status: Acute (2) Dyspnea ICD Code: R06.00 - Dyspnea, unspecified (3) Chest tightness ICD Code: R07.89 - Other chest pain Status: Acute (4) CAD (coronary artery disease) ICD Code: I25.10 - Atherosclerotic heart disease of [place] coronary artery without angina pectoris Status: Chronic (5) Tobacco abuse ICD Code: Z72.0 - Tobacco use Status: Chronic Assessment and Plan Ms. Carnes is a 57-year-old female patient with a known medical history of CAD with stent placement, hyperlipidemia, alcohol abuse and tobacco abuse who presented to the ED with complaints of chest tightness. Chronic obstructive pulmonary disease in exacerbation Bilateral cavitary lung nodules, r/o metastatic disease vs infectious etiology with associated dyspnea and hypoxia requiring supplemental O2. - D-dimer elevated. CT angiography showing no PE. Bilateral cavitary nodules with a new 16 mm right lower lobe cavitary nodule seen with enlargement of an additional right lower lobe cavitary nodule. Ground-glass opacity and tree-in- bud opacities bilaterally. Suspicion for metastatic disease or septic emboli. - Consult placed to pulmonology, appreciate input recommendations. Oncology suspecting infectious source. Consult also placed to oncology, appreciate recommendations. - Will undergo needle biopsy of lesion and sent for culture on Monday 01/29. - CBC and BMP reviewed essentially unremarkable. WBC WNL. Afebrile. Monitor for infection. - Duonebs available PRN. Supplemental O2 as needed, requiring 4 L nasal cannula at this time. - Continue IV steroids. Started on Levaquin and Rocephin. Continue. - Supportive care. Atypical chest pain. Improved. - Suspect secondary to noncompliance with medication for cardiac stents. - Serial troponins and serial EKGs have been ordered for ruling out ACS purposes. Troponins flat. - Control pain, [place] PO PRN as need per pain scale. Morphine IV PRN as needed per pain scale. History of CAD with stent placement: Continue home Plavix. Continue home Ramipril, metoprolol and aspirin. Noncompliant with medications. Dyslipidemia: Continue home Atorvastatin. Alcohol abuse: Patient counselled on cessation. Monitor for withdrawals. CIWA protocol initiated. Continue multivitamin, folic acid and thiamine. Tobacco abuse: Counselled on cessation. DVT prophylaxis: SCDs. Problem Qualifiers (1) Dyspnea: Qualified Codes: R06.09 - Other forms of dyspnea Lakshmi Benjamin January 28, 2018 09:47
[2018-01-28] MEDS: cefTRIAXone INJ 1,000 MG in SODIUM CHLORIDE 0.9% INJ 100 ML IV SCH (12:40)
--- NOTE | 2018-01-28 14:04 | EKG ---
Date Performed: 01/27/2018 Time Performed: 15:57:50 PTAGE: 57 years EKG: Sinus rhythm NORMAL ECG PREVIOUS TRACING : 01/27/2018 10.26 Since prior tracing, sinus rate is slower. DOCTOR: Ishaan Landeros Interpretating Date/Time 01/28/2018 14:02:17
--- NOTE | 2018-01-28 14:04 | EKG ---
Date Performed: 01/27/2018 Time Performed: 21:42:19 PTAGE: 57 years EKG: Ectopic atrial rhythm ABNORMAL RHYTHM ECG PREVIOUS TRACING : 01/27/2018 15.57 Since prior tracing, ectopic atrial rhythm has replaced Sin us rhythm . DOCTOR: Ishaan Landeros Interpretating Date/Time 01/28/2018 14:03:36
[2018-01-28] MEDS ORDERED: AZITHROMYCIN INJ 500 MG in SODIUM CHLOR 0.9% 250 ML INJ 250 ML IV SCH (15:00)
--- NOTE | 2018-01-28 15:43 | MB ---
cc: Ishaan Landeros MD DATE: 01/28/2018 REASON FOR CONSULTATION: Atypical chest pain. HISTORY OF PRESENT ILLNESS: The patient is a 57-year-old woman with a history of coronary artery disease, status post an LAD stent, but a cardiac catheterization performed last May showing stable coronary artery disease and a nonischemic nuclear stress test performed earlier this year. The patient presents with worsening shortness of breath, but mostly severe coughing to the point where she would have pain with her coughing and the need to vomit. Her CTA of the chest was concerning for bilateral cavitary nodules, which are being worked up by the infectious disease and oncology teams. Currently, she is feeling well, sitting in bed, denying any current chest pain or shortness of breath, lightheadedness, dizziness, or syncope. PAST MEDICAL HISTORY: Coronary artery disease as above, tobacco abuse (says she quit a few days ago), and alcohol abuse. CURRENT MEDICATIONS: 1. Ceftriaxone. 2. Lopressor 25 mg q.12 hours. 3. Lipitor 20 mg at bedtime. 4. Levaquin. 5. Ramipril 2.5 mg daily. 6. Plavix 75 mg daily. ALLERGIES: NO KNOWN DRUG ALLERGIES. PHYSICAL EXAMINATION: VITAL SIGNS: Temperature 99.1, pulse 63, respiratory rate 18, blood pressure 132/60, sating 93% on 2 liters. GENERAL: Pleasant woman in no distress. NECK: No JVD. LUNGS: Rhonchi in all lung ramirez. HEART: Regular rate and rhythm. No murmurs appreciated. ABDOMEN: Benign. EXTREMITIES: No edema. LABORATORY DATA: White count 9.5, hematocrit 43.1, platelets 247. Sodium 137, potassium 4.4, chloride 99, bicarbonate 31.5, BUN 16, creatinine 0.57, glucose 173. Cardiac enzymes are negative x 3. EKG shows sinus/ectopic atrial rhythm with no significant ST or T-wave changes. IMPRESSION AND RECOMMENDATIONS: Atypical chest pain. The patient's chest pain seems quite likely related to her acute lung process which is being worked up by the appropriate teams. Her cardiac enzymes are normal and her EKG is nonischemic. She has had relatively recent ischemic workups including a heart catheterization last year and a stress test this past September. From a cardiac standpoint, no further workup is required and she is cleared as a moderate risk patient for any invasive procedure which is required. I will sign off at this time. Please call with any questions. Thank you again for the opportunity to participate in this patient's care. MD DESHAUN Patel/DILIP , 03:23 PM , 03:41 PM
--- NOTE | 2018-01-28 17:29 | HHI.PR ---
Subjective Remarks Better today. Has some fever. Will go for Needle biopsy in am Objective Vital Signs Date Time Temp Pulse Resp B/P (MAP) Pulse Ox O2 Delivery O2 Flow Rate FiO2 01/28/18 13:39 18 01/28/18 12:00 99.1 63 17 132/60 (84) 93 01/28/18 08:11 94 Nasal Cannula 2.00 01/28/18 08:00 97.4 92 19 151/70 (97) 96 01/28/18 04:45 84 135/80 (98) 01/28/18 00:00 71 01/28/18 00:00 98.5 68 20 176/72 (106) 93 01/27/18 20:01 98 Nasal Cannula 2.00 01/27/18 20:00 97.5 82 20 174/77 (109) 93 I/O 01/27/18 01/27/18 01/27/18 01/28/18 01/28/18 01/28/18 07:00 15:00 23:00 07:00 15:00 23:00 Intake Total 720 ml 240 ml Balance 720 ml 240 ml Intake Oral 720 ml 240 ml # Voids 3 3 Result Diagram: 01/27/18 1015 01/27/18 1015 Objective Remarks GENERAL: This is a thinly built middle-aged white female who is alert, pale . HEENT: Head is normocephalic. Pupils are reactive and equal. Tongue was moist. Throat was injected. Nasal mucosa is clear. NECK: Supple, no bruits, no thyroid enlargement or lymphadenopathy. CHEST: Distant breath sounds with expiratory wheezes bilaterally, prolonged expirations. HEART: The heart sounds are regular S1, S2 with no murmur. No S3. ABDOMEN: Soft, scaphoid, without masses. No organomegaly or tenderness. Bowel sounds are active. EXTREMITIES: No lesions, no edema, no calf tenderness. NEUROLOGIC: Reflexes are 1+ with no gross motor deficits. Cranial nerves grossly intact. SKIN: No lesions. Assessment and Plan Assessment and Plan IMPRESSION: 1. Chronic obstructive pulmonary disease with acute exacerbation. 2. Bilateral cavitary lung nodules, rule out metastatic disease versus infectious etiology like granulomatous disease. 3. Nicotine dependency. 4. History of hypertension. 5. Coronary artery disease status post stenting. Plan : 1. Continue antibiotics . 2. O2 PRN 2 L 3. Duonebs qid. 4. CT Needle biopsy of left lung lesion 5. Continue solumedrol 40 mg IV q8H Juanpablo De Leon MD January 28, 2018 17:29
[2018-01-28] MEDS: ATORVASTATIN 20 MG TAB PO SCH (20:33)
[2018-01-28] MEDS: LORazepam 0.5 MG TAB PO PRN (20:33)
[2018-01-28] MEDS: LEVOFLOXACIN 750 MG PREMIX INJ 150 ML IV SCH (20:33)
[2018-01-29 01:51] VITALS: BP 130/75; PULSE 76; RESP 20; TEMP 97.1; O2SAT 90
[2018-01-29 04:50] VITALS: BP 140/78; PULSE 73; RESP 20; TEMP 97; O2SAT 91
[2018-01-29] MEDS: SODIUM CHLORIDE 0.9% FLUSH 10 ML FLUSH IVF PRN (06:01)
[2018-01-29] MEDS: methylPREDNISolone SOD SUCC 40 MG/1 ML VIAL IV PUSH SCH (06:01)
[2018-01-29] MEDS: ACETAMINOPHEN/HYDROcodone 325 MG/5 MG TAB PO PRN ×2 (06:07→10:52)
[2018-01-29] MEDS: RESP: ALBUTEROL 2.5 MG/IPRATROPIUM 0.5 MG NEB (SCH) NEB (07:58)
[2018-01-29 08:00] VITALS: BP 147/71; PULSE 70; PULSE 77; RESP 18; TEMP 98.7; O2SAT 91
[2018-01-29 08:01] VITALS: O2SAT 92
[2018-01-29] MEDS: RAMIPRIL 2.5 MG CAP PO SCH (10:48)
[2018-01-29] MEDS: METOPROLOL TARTRATE 25 MG TAB PO SCH (10:48)
[2018-01-29] MEDS ORDERED: METO25TA3 PO (11:37)
[2018-01-29] MEDS ORDERED: LEVA750T9 PO (11:37)
[2018-01-29] MEDS ORDERED: ASPI81CH7 CHEW (11:37)
[2018-01-29] MEDS ORDERED: MEDR4PAK PO (11:37)
[2018-01-29] MEDS ORDERED: PLAV75TA29 PO (11:37)
[2018-01-29] MEDS ORDERED: ATOR20TA15 PO (11:37)
[2018-01-29] MEDS ORDERED: RAMI2.5C PO (11:37)
[2018-01-29 11:52] VITALS: RESP 17
--- NOTE | 2018-01-29 12:06 | HHI.DS ---
Discharge Summary Admission Date January 27, 2018 at 13:06 Discharge Date: January 29, 2018 Admitting Diagnosis Cavitary lung lesions, dyspnea (1) Cavitary lesion of lung ICD Code: J98.4 - Other disorders of lung Status: Acute (2) Dyspnea ICD Code: R06.00 - Dyspnea, unspecified (3) Chest tightness ICD Code: R07.89 - Other chest pain Status: Acute (4) CAD (coronary artery disease) ICD Code: I25.10 - Atherosclerotic heart disease of [place] coronary artery without angina pectoris Status: Chronic (5) Tobacco abuse ICD Code: Z72.0 - Tobacco use Status: Chronic Procedures Please see below. Brief History - From Admission This is a 57-year-old female patient with a known medical history of CAD with stent placement, hyperlipidemia, alcohol abuse and tobacco abuse who presented to the ED with complaints of shortness of breath for 4 days. Patient states that yesterday while at work her dyspnea worsened, especially with exertion. She states that she has been coughing for several days with productive yellow phlegm. Admits to poor appetite. Also admits to losing a large amount of weight during the past few months. Does admit to chills, denies any fevers, for the same issues. Does not follow with a epidemiology internship. Is prescribed Plavix and aspirin, states she does take her aspirin. Supposedly patient has an appointment with the [facility] coming up. CTA upon presentation showing no evidence of PE. Bilateral cavitary nodules with a new 16 mm right lower lobe cavitary nodule noted. Requiring 4 L nasal cannula at this time. CBC/BMP: 01/27/18 1015 01/27/18 1015 Significant Findings Laboratory Tests Test 01/27/18 10:15 01/27/18 13:15 01/27/18 16:00 01/27/18 21:50 Mean Corpuscular Volume 100.1 FL (80.0-100.0) Neutrophils (%) (Auto) 79.8 % (16.0-70.0) Basophils (%) (Auto) 2.4 % (0.0-2.0) Lymphocytes # (Auto) 0.9 TH/MM3 (1.0-4.8) Prothrombin Time 9.2 SEC (9.8-11.6) D-Dimer Quantitative (PE/DVT) 0.85 MG/L FEU (0.00-0.50) Random Glucose 173 MG/DL (74-106) Troponin I LESS THAN 0.02 NG/ML LESS THAN 0.02 NG/ML LESS THAN 0.02 NG/ML Imaging Last Impressions Chest X-Ray 01/27/18 1014 Signed Impressions: Service Date/Time: Saturday, January 27, 2018 10:58 - CONCLUSION: 1. Left upper lobe cavitary lesion/nodule measures approximately 1.8 cm, slightly decreased in size from the prior CT and definitively decreased in size from the prior chest x-ray. 2. No other acute finding is identified. Dany Sharma MD CT Angiography 01/27/18 0000 Signed Impressions: Service Date/Time: Saturday, January 27, 2018 11:50 - CONCLUSION: 1. No PE is identified. 2. Bilateral cavitary nodules are present with a new 16 mm right lower lobe cavitary nodule and enlargement of an additional right lower lobe cavitary nodule. Additionally, there are multifocal areas of groundglass opacity and tree in bud opacity bilaterally. The cavitary nodules raise suspicion for metastatic disease or septic emboli. Dany Sharma MD PE at Discharge GENERAL: Well-developed, well-nourished patient in NAD. On supplemental O2. SKIN: Warm and dry. No rash. HEAD: Normocephalic. Atraumatic. EYES: Pupils equal and round. No scleral icterus. No injection or drainage. ENT: No nasal bleeding or discharge. Mucous membranes pink and moist. NECK: Supple. Trachea midline. CARDIOVASCULAR: Regular rate and rhythm. S1, S2 noted. No murmur appreciated. No chest pain to palpation. RESPIRATORY: No accessory muscle use. Right lower lobe posterior lung ramirez diminished. Left posterior lung ramirez clear. Breath sounds equal bilaterally. GASTROINTESTINAL: Abdomen soft, non-tender, nondistended. Normoactive bowel sounds x4. MUSCULOSKELETAL: No obvious deformities. Extremities without clubbing, cyanosis , or edema. NEUROLOGICAL: Awake and alert. No obvious cranial nerve deficits. Motor grossly within normal limits. 5/5 muscle strength in bilateral upper and lower extremities. Normal speech. PSYCHIATRIC: Appropriate mood and affect; insight and judgment normal. Pt update on day of discharge Patient seen and examined, walking around the room. In no dyspnea. All symptoms improved. Comfortable on RA. Vital signs stable. Patient is unable to undergo lung biopsy due to having Plavix. Will be scheduled for outpatient next week on 02/06/18. Will DC home. Patient should stop Aspirin five days before procedure, patient is aware. Hospital Course Ms. Carnes is a 57-year-old female patient with a known medical history of CAD with stent placement, hyperlipidemia, alcohol abuse and tobacco abuse who presented to the ED with complaints of chest tightness. Presented with chronic obstructive pulmonary disease in exacerbation. Also with bilateral cavitary lung nodules, r/o metastatic disease vs infectious etiology with associated dyspnea and hypoxia requiring supplemental O2. D-dimer elevated. CT angiography showing no PE. Bilateral cavitary nodules with a new 16 mm right lower lobe cavitary nodule seen with enlargement of an additional right lower lobe cavitary nodule. Ground-glass opacity and tree-in-bud opacities bilaterally. Suspicion for metastatic disease or septic emboli. Consult placed to pulmonology , appreciate input recommendations. Oncology suspecting infectious source. Consult also placed to oncology, appreciate recommendations. Will undergo needle biopsy of lesion and send for culture on 02/06/18. CBC and BMP essentially unremarkable. WBC WNL. Afebrile. Monitor for infection. Duonebs available PRN. Supplemental O2 as needed, requiring 4 L nasal cannula at the time of presentation, no comfortable on RA. Was started on IV steroids and Levaquin and Rocephin. On DC given antibiotics and Medrol dose pack. Atypical chest pain on presentation. Cardiology saw patient during hospitalization. Suspect secondary to noncompliance with medication for cardiac stents. ACS ruled out troponins negative. Pain control, [place] PO PRN as need per pain scale. Morphine IV PRN as needed per pain scale. History of CAD with stent placement. Continue home Plavix. Continue home Ramipril, metoprolol and aspirin. Patient noncompliant with medications. Dyslipidemia: Continue home Atorvastatin. Alcohol abuse: Patient counselled on cessation. Tobacco abuse: Counselled on cessation. Follow up with Dr. De Leon for outpatient lung biospy on 02/06/18. Appointment arranged. Pt Condition on Discharge: Stable Discharge Disposition: Discharge Home Discharge Time: > 30 minutes Discharge Instructions DIET: Follow Instructions for: Heart Healthy Diet Speech Therapy-Diet Recommends: Regular Additional Diet Instructions: Tobacco and alcohol cessation. Activities you can perform: Regular-No Restrictions Follow up Referrals: PCP Follow-up - 1 Week Pulmonology - 1 Week with Juanpablo De Leon MD PATIENT WILL UNDERGO A LUNG BIOSPY ON 02/06/[address] HEREDIA OUTPATIENT. PATIENT NEEDS TO BE OFF PLAVIX X 5 DAYS BEFORE PROCEDURE, PATIENT HAS BEEN UPDATED AND IS AWARE OF PLAN. IS NONCOMPLIANT WITH PLAVIX ANYWAYS AND WILL PROABBLY NOT BE TAKING IT, PER PATIENT. New Medications: Aspirin (Aspirin [facility]) 81 Mg Chew 81 MG CHEW DAILY for CAD prevention/stents for 30 Days, #30 TAB 0 Refills Levofloxacin (Levaquin) 750 Mg Tablet 750 MG PO DAILY for Infection for 5 Days, #5 TAB 0 Refills Methylprednisolone Dosepak (Medrol Dosepak) 4 Mg Dspk 4 MG PO DIRECTED, #1 DSPK 0 Refills Per Pharmacist direction Atorvastatin (Atorvastatin) 20 Mg Tab 20 MG PO HS for hyperlipidemia for 30 Days, #30 TAB Clopidogrel (Plavix) 75 Mg Tab 75 MG PO DAILY for HTN for 30 Days, #30 TAB Metoprolol Tartrate (Metoprolol Tartrate) 25 Mg Tab 25 MG PO Q12HR for CAD for 30 Days, #30 TAB Ramipril (Ramipril) 2.5 Mg Cap 2.5 MG PO DAILY for HTN for 30 Days, #30 CAP Continued Medications: Aspirin (Tgt Aspirin) 81 Mg Chw 81 MG CHEW DAILY for CAD for 60 Days, #60 Lakshmi Johns January 29, 2018 12:06
[2018-01-29] MEDS: cefTRIAXone INJ 1,000 MG in SODIUM CHLORIDE 0.9% INJ 100 ML IV SCH (13:00)
[2018-01-29] MEDS ORDERED: methylPREDNISolone SOD SUCC 40 MG/1 ML VIAL IV PUSH SCH (21:00)
== END 2018-01-29 13:28 | disposition home or self-care (01) | DRG 206 ==
LOC: PHEFT 09:51 → PHEDA 13:06 → PH3A 14:29
PROVIDERS: ADMIT Hospitalist; ATTEND Hospitalist
DX: J98.4 Other disorders of lung (principal); J44.1 Chronic obstructive pulmonary disease with (acute) exacerbation; R06.03 Acute respiratory distress; I10 Essential (primary) hypertension; I25.10 Atherosclerotic heart disease of native coronary artery without angina pectoris; R00.0 Tachycardia, unspecified; R73.9 Hyperglycemia, unspecified; R63.0 Anorexia; E78.5 Hyperlipidemia, unspecified; R09.02 Hypoxemia; R63.4 Abnormal weight loss; F17.210 Nicotine dependence, cigarettes, uncomplicated; M19.90 Unspecified osteoarthritis, unspecified site; F10.10 Alcohol abuse, uncomplicated; Z95.5 Presence of coronary angioplasty implant and graft; I25.2 Old myocardial infarction; Z91.14 Patient's other noncompliance with medication regimen; Z80.1 Family history of malignant neoplasm of trachea, bronchus and lung; Z79.02 Long term (current) use of antithrombotics/antiplatelets
CPT/HCPCS: 71046; 71275; 80048; 82550; 82552; 83605; 83735; 84484; 85025; 85379; 85610; 85730; 87040; 87070; 87205; 93005; 94060; 94640; 94664; 96374; 96375; J0456; J0696; J1644; J1956; J2920; J2930; J7050; Q9967

== ENCOUNTER 2018-02-08 09:02 | Day surgery (SDC) | payer SELFPAY ==
[~2018-02-08] VITALS: Ht 167.6 cm; Wt 54.5 kg
[2018-02-08] VITALS (9 sets, daily range): BP systolic 130–147; BP diastolic 68–80; PULSE 60–88; RESP 20; TEMP 97.8–98.2; O2SAT 90–94
[~2018-02-08 09:02] MED LIST changes: +ASPI81CH7 CHEW; +LEVA750T9 PO; +MEDR4PAK PO
[2018-02-08] MEDS ORDERED: SODIUM CHLOR 0.9% 1000 ML IV SCH (11:00)
[2018-02-08] MEDS ORDERED: LIDOCAINE HCL 1% 20 ML VIAL ONE (11:42)
[2018-02-08] MEDS ORDERED: fentaNYL CITRATE 250 MCG/5 ML AMP ONE (12:29)
[2018-02-08] MEDS ORDERED: MIDAZOLAM HCL 5 MG/5 ML VIAL ONE (12:29)
[2018-02-08] MEDS ORDERED: oxyCODONE/ACETAMINOPHEN 5 MG/325 MG TAB PO PRN (13:00)
--- NOTE | 2018-02-08 13:04 | PD.RAD ---
Post Procedure Progress Note Pre Procedure Diagnosis: (1) Cavitary lesion of lung Post Procedure Diagnosis: (1) Cavitary lesion of lung Procedure Date: February 08, 2018 Supervising Radiologist: Goran Cloud Estimated blood loss: none Anesthesia: Local, Conscious Sedation Plan of Activity Patient to Unit: [facility] Patient Condition: Fair Additional Comments: Cavitary lesion of the left lung biopsied without difficulty Samples sent for path and culture See PACS Report for procedural detail/treatment Goran Cloud MD February 08, 2018 13:04
--- NOTE | 2018-02-08 14:48 | RADRPT ---
EXAM DATE/TIME: 02/08/2018 12:32 [facility] COMPARISON: No previous studies available for comparison. INDICATIONS : Left lung mass. SEDATION TIME: 40 minutes BIOPSY SITE: Left lung MEDICATION(S): 1.) 2 mg midazolam (Versed) IV 2.) 100 mcg fentanyl (Sublimaze) IV DEVICE(S): 1.) 19 gauge coaxial 2.) 20 gauge Bard MEDICAL HISTORY : Chronic obstructive pulmonary disease. Hypertension. Cardiovascular disease. SURGICAL HISTORY : Coronary artery stent. Appendectomy. ENCOUNTER: Initial ACUITY: 1 day PAIN SCORE: 0/10 LOCATION: Left chest A total of three core specimen(s) were obtained and sent to the laboratory for pathologic evaluation. PROCEDURE: 1. CT guided lung biopsy. 2. Conscious sedation with continuous EKG and oximetry monitoring. Prior to the procedure informed consent was obtained. Any appropriate prior imaging studies were rev iewed. Using automated exposure control and adjustment of the mA and/or kV according to patient size, radiation dose was kept as low as reasonably achievable to obtain optimal diagnostic quality images. DICOM format image data is available electronically for review and comparison. The site was prepped in a sterile fashion. Full sterile technique was used, including cap, mask, nichole rile gloves and gown and a large sterile sheet. Hand hygiene and 2% chlorhexidine and/or betadine/al cohol prep was utilized per protocol for cutaneous antisepsis. The skin and subcutaneous tissues wer e infiltrated with local anesthetic solution. With CT guidance the previously identified target was localized. Biopsy was performed using the presc ribed needle as above. 2 core samples were sent for pathology. The third sample was sent for culture and sensitivity. Adequate hemostasis was obtained with compression at the puncture site. Follow-up CT scan reveals no pneumothorax. Conscious sedation was performed with the prescribed dosages and duration as above in the presence of an independent trained radiology nurse to assist in the monitoring of the patient. EKG and oximetry remained stable throughout the procedure. The patient tolerated the procedure well and there were no complications. The patient was sent to Radiology Outpatient Unit in stable condition. CONCLUSION: Uncomplicated CT guided biopsy. Samples were sent for pathology as well as culture and sensitivity. Goran Cloud MD on February 08, 2018 at 14:45 Board Certified Radiologist. This report was verified electronically.
--- NOTE | 2018-02-08 15:29 | RADRPT ---
EXAM DATE/TIME: 02/08/2018 15:05 [facility] COMPARISON: CT PULMONARY ANGIOGRAM, January 27, 2018, 11:50. CHEST PA & LAT, January 27, 2018, 10:58. CT NEEDLE BIOPSY LUNG, LEFT, February 08, 2018, 12:32. INDICATIONS : Post left lung biopsy. MEDICAL HISTORY : Chronic obstructive pulmonary disease. Hypertension. Cardiovascular disease. SURGICAL HISTORY : Coronary artery stent. Appendectomy. Left lung biopsy. ENCOUNTER: Initial ACUITY: 1 day PAIN SCORE: 0/10 LOCATION: Bilateral chest FINDINGS: A single frontal expiratory view of the chest was performed. Suspect small left apical pneumothorax. Redemonstration mass in the left upper lobe. Mediastinal structures are in the midline. The cardio-mediastinal contours and bronchopulmonary markings are unremarkable for an expiratory exam . Osseous structures are intact. CONCLUSION: 1. Suspect a small left upper lobe pneumothorax following left lung mass biopsy. Heladio Westbrook MD on February 08, 2018 at 15:24 Board Certified Radiologist. This report was verified electronically.
--- NOTE | 2018-02-08 16:39 | RADRPT ---
EXAM DATE/TIME: 02/08/2018 16:02 [facility] COMPARISON: CHEST EXPIRATION ONLY, February 08, 2018, 15:05. INDICATIONS : Evaluate for pnuemothorax after left lung biospy. MEDICAL HISTORY : Hypertension. Smoker. SURGICAL HISTORY : Coronary artery stent. ENCOUNTER: Subsequent ACUITY: 1 day PAIN SCORE: 0/10 LOCATION: Bilateral chest FINDINGS: Stable small left apical pneumothorax. Redemonstration of cavitary mass in the left upper lobe. Cardi omedi cell contours are stable. Remainder of exam is unchanged. CONCLUSION: 1. Stable small left apical pneumothorax following lung biopsy. Heladio Westbrook MD on February 08, 2018 at 16:37 Board Certified Radiologist. This report was verified electronically.
--- NOTE | 2018-02-08 16:44 | PD.RAD ---
Radiology Note 57 Y/[address] post ct guided biopsy of the Left lung. Follow up post procedure CT and CXR demonstrates a small left apical pneumothorax. Repeat CXR demonstrated the PTX to be stable. Pt. is asymptomatic and resting comfortably on room air.Sating 95% on room air Pt. desires to go home and return in AM for follow up cxr. She states her significant other will be with her at all times. She was advised of the risk and benefits of being discharged and given the option of staying over night but declined. She will return at 8am for a chest x ray to further asses. She was advised to proceed to the ER if she develops pain or shortness of breath. Goran Cloud MD February 08, 2018 16:44
[2018-02-08] MEDS ORDERED: BENZONATATE 100 MG CAP PO PRN (16:45)
== END 2018-02-08 16:45 | disposition home or self-care (01) ==
LOC: HRAD 09:02 → HRIP 09:06 → HRAD 16:45
PROVIDERS: ATTEND Internal Medicine Pulmonary Disease
DX: R91.8 Other nonspecific abnormal finding of lung field (principal)
CPT/HCPCS: 32405; 71045; 77012; 87015; 87070; 87102; 87116; 87176; 87205; 87206; 88305; 99152; 99153; J2250; J3010; J7030

== ENCOUNTER 2018-02-08 17:25 | Inpatient (IN) | payer SELFPAY ==
[~2018-02-08] VITALS: Ht 167.6 cm; Wt 56.4 kg
[2018-02-08 17:34] VITALS: BP 142/65; PULSE 100; RESP 20; TEMP 98.1; O2SAT 95
[2018-02-08 18:13] VITALS: BP 164/72; PULSE 93; RESP 21; O2SAT 94
--- NOTE | 2018-02-08 18:28 | PD ---
HPI Chief Complaint: Respiratory Symptoms Time Seen by Provider: 18:28 Travel History International Travel<30 days: No Contact w/Intl Traveler<30days: No Traveled to known affect area: No History of Present Illness HPI 57-year-old female with history of CAD, on Plavix, recent diagnosis of a lung mass with biopsy completed today, presents emergency department for evaluation of acute worsening of shortness of breath. Patient states she was discharged around 5 PM today. She was made aware of an apical pneumothorax. She was told to return with any worsening shortness of breath. Patient reports that after leaving the hospital, she had not even made it to her car when she began to have extreme left-sided pain with shortness of breath. She came immediately back to the emergency department. She denies any hemoptysis. No fever or chills. States she feels significantly short of breath. Denies any nausea, vomiting, diaphoresis. Patient has no other symptoms to report. PFSH Past Medical History Arthritis: Yes (right side) Anxiety: No Depression: No Cancer: No Cardiac Catheterization: Yes (stents) Cardiovascular Problems: Yes High Cholesterol: Yes Chemotherapy: No Chest Pain: Yes COPD: Yes Cerebrovascular Accident: No Coronary Artery Disease: Yes Diabetes: No Diminished Hearing: No Endocrine: No Genitourinary: No Hypertension: Yes Immune Disorder: Yes (ARTHRITIS) Musculoskeletal: Yes Neurologic: Yes Psychiatric: No Reproductive: No Respiratory: Yes (COPD) Immunizations Current: Yes Migraines: No Radiation Therapy: No Seizures: No Thyroid Disease: No Tetanus Vaccination: Unknown Influenza Vaccination: No Menopausal: Yes : 5 Para: 1 Miscarriage: 2 : 2 Ovarian Cysts: Yes Past Surgical History Abdominal Surgery: Yes (APPENDECTOMY) AICD: No Appendectomy: Yes Cardiac Surgery: Yes (cardiac stents) Insulin Pump: No Other Surgery: Yes Social History Alcohol Use: Yes (moderate-several x's weekly ) Tobacco Use: Yes (1 PPD) Substance Use: No Allergies-Medications (Allergen,Severity, Reaction): Coded Allergies: No Known Allergies (Verified Allergy, Unknown, 02/08/18) Reported Meds & Prescriptions Reported Meds & Active Scripts Active Plavix (Clopidogrel Bisulfate) 75 Mg Tab 75 Mg PO DAILY 30 Days Ramipril 2.5 Mg Cap 2.5 Mg PO DAILY 30 Days Atorvastatin (Atorvastatin Calcium) 20 Mg Tab 20 Mg PO HS 30 Days Metoprolol Tartrate 25 Mg Tab 25 Mg PO Q12HR 30 Days Aspirin Children's (Aspirin) 81 Mg Chew 81 Mg CHEW DAILY 30 Days Review of Systems Except as stated in HPI: all other systems reviewed are Neg Physical Exam Narrative GENERAL: Thin female patient, sitting in bed, mild distress SKIN: Focused skin assessment warm/dry. Small biopsy site wound on the left anterior chest. HEAD: Atraumatic. Normocephalic. EYES: Pupils equal and round. No scleral icterus. No injection or drainage. ENT: No nasal bleeding or discharge. Mucous membranes pink and moist. NECK: Trachea midline. No JVD. CARDIOVASCULAR: Tachycardic rate and rhythm. No murmur appreciated. RESPIRATORY mild accessory muscle use. Coarse, scattered rhonchi, diminished left upper lobe. No crepitus. Even respirations. GASTROINTESTINAL: Abdomen soft, non-tender, nondistended. Hepatic and splenic margins not palpable. MUSCULOSKELETAL: No obvious deformities. No clubbing. No cyanosis. No edema. NEUROLOGICAL: Awake and alert. No obvious cranial nerve deficits. Motor grossly within normal limits. Normal speech. PSYCHIATRIC: Appropriate mood and affect; insight and judgment normal. Data Data Last Documented VS Vital Signs Date Time Temp Pulse Resp B/P (MAP) Pulse Ox O2 Delivery O2 Flow Rate FiO2 02/08/18 18:46 100 Non-Rebreather 15.00 02/08/18 18:34 75 21 164/72 (102) 02/08/18 17:34 98.1 Orders Orders Complete Blood Count With Diff (02/08/18 17:38) Basic Metabolic Panel (Bmp) (02/08/18 17:38) Chest, Pa & Lat (02/08/18 17:38) Electrocardiogram (02/08/18 17:38) Iv Access Insert/Monitor (02/08/18 18:28) Ecg Monitoring (02/08/18 18:28) Oximetry (02/08/18 18:28) Oxygen Administration (02/08/18 18:28) Sodium Chloride 0.9% Flush (Ns Flush) (02/08/18 18:30) Morphine Inj (Morphine Inj) (02/08/18 18:45) Morphine Inj (Morphine Inj) (02/08/18 18:45) Oxygen Administration (02/08/18 18:38) Admit Order (Ed Use Only) (02/08/18 19:59) Labs Laboratory Tests Test 02/08/18 17:24 White Blood Count 15.7 TH/MM3 Red Blood Count 3.99 MIL/MM3 Hemoglobin 13.5 GM/DL Hematocrit 40.4 % Mean Corpuscular Volume 101.2 FL Mean Corpuscular Hemoglobin 33.9 PG Mean Corpuscular Hemoglobin Concent 33.5 % Red Cell Distribution Width 14.6 % Platelet Count 397 TH/MM3 Mean Platelet Volume 7.7 FL Neutrophils (%) (Auto) 70.3 % Lymphocytes (%) (Auto) 22.2 % Monocytes (%) (Auto) 5.9 % Eosinophils (%) (Auto) 0.7 % Basophils (%) (Auto) 0.9 % Neutrophils # (Auto) 11.1 TH/MM3 Lymphocytes # (Auto) 3.5 TH/MM3 Monocytes # (Auto) 0.9 TH/MM3 Eosinophils # (Auto) 0.1 TH/MM3 Basophils # (Auto) 0.1 TH/MM3 CBC Comment DIFF FINAL Differential Comment Blood Urea Nitrogen 14 MG/DL Creatinine 0.57 MG/DL Random Glucose 65 MG/DL Calcium Level 8.8 MG/DL Sodium Level 142 MEQ/L Potassium Level 3.9 MEQ/L Chloride Level 107 MEQ/L Carbon Dioxide Level 23.4 MEQ/L Anion Gap 12 MEQ/L Estimat Glomerular Filtration Rate 109 ML/MIN [facility] Medical Decision Making Medical Screen Exam Complete: Yes Emergency Medical Condition: Yes Medical Record Reviewed: Yes Differential Diagnosis Pneumothorax versus pneumonia versus anxiety versus postop pain Narrative Course 57-year-old female presents emergency department for evaluation of acute worsening shortness of breath after being discharged today after a lung biopsy was complete. Patient appears in mild distress. She is tachycardic and tachypneic. She has placed on 100% nonrebreather mask. I discussed the patient by attending physician. Labs and repeat x-ray are ordered. Laboratory Tests Test 02/08/18 17:24 White Blood Count 15.7 TH/MM3 Red Blood Count 3.99 MIL/MM3 Hemoglobin 13.5 GM/DL Hematocrit 40.4 % Mean Corpuscular Volume 101.2 FL Mean Corpuscular Hemoglobin 33.9 PG Mean Corpuscular Hemoglobin Concent 33.5 % Red Cell Distribution Width 14.6 % Platelet Count 397 TH/MM3 Mean Platelet Volume 7.7 FL Neutrophils (%) (Auto) 70.3 % Lymphocytes (%) (Auto) 22.2 % Monocytes (%) (Auto) 5.9 % Eosinophils (%) (Auto) 0.7 % Basophils (%) (Auto) 0.9 % Neutrophils # (Auto) 11.1 TH/MM3 Lymphocytes # (Auto) 3.5 TH/MM3 Monocytes # (Auto) 0.9 TH/MM3 Eosinophils # (Auto) 0.1 TH/MM3 Basophils # (Auto) 0.1 TH/MM3 CBC Comment DIFF FINAL Differential Comment Blood Urea Nitrogen 14 MG/DL Creatinine 0.57 MG/DL Random Glucose 65 MG/DL Calcium Level 8.8 MG/DL Sodium Level 142 MEQ/L Potassium Level 3.9 MEQ/L Chloride Level 107 MEQ/L Carbon Dioxide Level 23.4 MEQ/L Anion Gap 12 MEQ/L Estimat Glomerular Filtration Rate 109 ML/MIN Patient's leukocytosis is likely due to post procedure, stress, lung mass. She will not be started on oral antibiotics at this time. Chest x-ray shows persistent mass in the left lateral midlung. It appears more dense on the current exam as opposed to cavitary. I discussed the findings with Dr. Valente, radiologist who read this film and he reports that the pneumothorax still exist. If the patient is symptomatic, chest tube may be beneficial. I discussed the patient findings with my attending physician. We agreed the patient would benefit from observation status. Plan is discussed with the patient. A call was placed to [facility] for admission. Diagnosis Primary Impression: Dyspnea Qualified Codes: R06.00 - Dyspnea, unspecified Additional Impressions: Cavitary lesion of lung Pneumothorax, post biopsy, left Admitting Information Admitting Physician Requests: Observation Condition: Stable Elle Ford February 08, 2018 18:28
[2018-02-08] MEDS ORDERED: SODIUM CHLORIDE 0.9% FLUSH 10 ML FLUSH IVF PRN (18:30)
[2018-02-08 18:34] VITALS: BP 164/72; PULSE 75; RESP 21; O2SAT 97
[2018-02-08] MEDS ORDERED: MORPHINE SULFATE 4 MG/ML INJ IV PUSH ONE (18:45)
[2018-02-08] MEDS ORDERED: MORPHINE SULFATE 2 MG/ML SYRINGE IV PUSH ONE (18:45)
[2018-02-08 19:16] LABS: AUTOMATED NEUTROPHIL # 11.1 TH/MM3 (1.8-7.7); BASOPHIL # 0.1 TH/MM3 (0-0.2); BASOPHIL % 0.9 % (0.0-2.0); EOSINOPHIL # 0.1 TH/MM3 (0-0.4); EOSINOPHIL % 0.7 % (0.0-4.0); HEMATOCRIT 40.4 % (35.0-46.0); HEMOGLOBIN 13.5 GM/DL (11.6-15.3); LYMPH % 22.2 % (9.0-44.0); LYMPHOCYTE # 3.5 TH/MM3 (1.0-4.8); MEAN CELL VOLUME 101.2 FL (80.0-100.0); MEAN CORPUSCULAR HEMOGLOBIN 33.9 PG (27.0-34.0); MEAN CORPUSCULAR HGB CONC 33.5 % (32.0-36.0); MEAN PLATELET VOLUME 7.7 FL (7.0-11.0); MONO % 5.9 % (0.0-8.0); MONOCYTE # 0.9 TH/MM3 (0-0.9); NEUT % 70.3 % (16.0-70.0); PLATELET COUNT 397 TH/MM3 (150-450); RED BLOOD COUNT 3.99 MIL/MM3 (4.00-5.30); RED CELL DISTRIBUTION WIDTH 14.6 % (11.6-17.2); WHITE BLOOD COUNT 15.7 TH/MM3 (4.0-11.0)
--- NOTE | 2018-02-08 19:20 | RADRPT ---
EXAM DATE/TIME: 02/08/2018 18:17 This report includes an Addendum and supersedes previous reports for this exam. [facility] COMPARISON: CT PULMONARY ANGIOGRAM, January 27, 2018, 11:50. CHEST PA & LAT, January 27, 2018, 10:58. INDICATIONS : Patient states short of breath and left posterior chest pain after discharge & post left lung biopsy. MEDICAL HISTORY : Hypertension. Smoker. SURGICAL HISTORY : Coronary artery stent. ENCOUNTER: Initial ACUITY: 1 day PAIN SCORE: 10/10 LOCATION: Left chest posterior FINDINGS: The heart size is normal. Again there is a focal lesion in the left mid lung laterally. This appear m ore cavitary on the prior exam. There is vague density at the medial right base. This is likely secon deisi to a pectus excavatum deformity. This appearance is unchanged. No effusion is seen. CONCLUSION: Persistent mass in the left lateral midlung. This appears more dense on the current exam as opposed t o cavitary. Dany Sherman MD on February 08, 2018 at 19:15 Board Certified Radiologist. This report was verified electronically. ADDENDUM: COMPARISON: CHEST EXPIRATION ONLY, February 08, 2018, 16:02. There is a persistent left pneumothorax. This measures 3 cm over the left upper lung and up to 0 .7 cm along the lateral left chest. This is unchanged from the prior exam. A nurse states the patient is symptomatic. Despite the pneumothorax being unchanged on the chest x-ray, if the patient is symp tomatically, a chest tube should be considered. Dany Sherman MD on February 08, 2018 at 19:59 Board Certified Radiologist. This report was verified electronically.
[2018-02-08 19:41] LABS: BICARBONATE 23.4 MEQ/L (21.0-32.0); CALCIUM 8.8 MG/DL (8.5-10.1); CREATININE 0.57 MG/DL (0.50-1.00)
[2018-02-08 20:37] VITALS: BP 126/60; PULSE 56; RESP 16; O2SAT 100
[2018-02-08] MEDS ORDERED: ONDANSETRON HCL 4 MG/2 ML VIAL IVP PRN (22:00)
[2018-02-08] MEDS ORDERED: SODIUM CHLORIDE 0.9% FLUSH 10 ML FLUSH IV FLUSH PRN (22:00)
[2018-02-08] MEDS ORDERED: NALOXONE HCL 0.4 MG/ML AMP IV PUSH PRN (22:00)
[2018-02-08] MEDS ORDERED: ACETAMINOPHEN 325 MG TAB PO PRN (22:00)
[2018-02-08 22:10] VITALS: O2SAT 100
--- NOTE | 2018-02-08 22:14 | HHI.HP ---
[facility] No Primary Care Physician Admission Diagnosis Respiratory distress s/p Lung biopsy; Left apical pneumothorax Diagnoses: Travel History International Travel<30 Days: No Contact w/Intl Traveler <30 Da: No Traveled to Known Affected Are: No History of Present Illness 37-year-old female with a past medical history significant for hypertension, hyperlipidemia and coronary artery disease presents to the emergency department for the evaluation of shortness of breath. The patient underwent a lung biopsy earlier today and had a small apical pneumothorax status post procedure. She was counseled as to the signs/symptoms of expanding pneumothorax and was discharged home. The patient reports that in the parking lot she became increasingly short of breath with left-sided chest and back pain worse with inspiration. She returned to the emergency department for further evaluation. Repeat chest x-ray done in the emergency department showed persistent left pneumothorax that is unchanged in size. The patient denies any abdominal pain. No nausea/vomiting/diarrhea. No lateralizing signs/symptoms. Review of Systems Except as stated in HPI: all other systems reviewed are Neg Past Family Social History Past Medical History Hypertension Hyperlipidemia Coronary artery disease Past Surgical History Cardiac catheterization on 07/11 with stent placement 2 Reported Medications Reported Meds & Active Scripts Active Plavix (Clopidogrel Bisulfate) 75 Mg Tab 75 Mg PO DAILY 30 Days Ramipril 2.5 Mg Cap 2.5 Mg PO DAILY 30 Days Atorvastatin (Atorvastatin Calcium) 20 Mg Tab 20 Mg PO HS 30 Days Metoprolol Tartrate 25 Mg Tab 25 Mg PO Q12HR 30 Days Aspirin Children's (Aspirin) 81 Mg Chew 81 Mg CHEW DAILY 30 Days Allergies: Coded Allergies: No Known Allergies (Verified Allergy, Unknown, 02/08/18) Family History Negative for CAD/DM Social History Smokes approximately 1 pack per day. Occasional alcohol. Denies illicit drugs. Physical Exam Vital Signs Vital Signs Date Time Temp Pulse Resp B/P (MAP) Pulse Ox O2 Delivery O2 Flow Rate FiO2 02/08/18 20:37 56 16 126/60 (82) 100 Non-Rebreather 02/08/18 18:46 100 Non-Rebreather 15.00 5/17/18 18:34 75 21 164/72 (102) 97 Nasal Cannula 2.00 02/08/18 18:31 97 Nasal Cannula 2.00 02/08/18 18:13 93 21 164/72 (102) 94 Room Air 02/08/18 18:10 93 21 94 Room Air 02/08/18 17:34 98.1 100 20 142/65 (90) 95 Physical Exam GENERAL: Thin, female sitting up in bed SKIN: No rashes, ecchymoses or lesions. Cool and dry. HEAD: Atraumatic. Normocephalic. No temporal or scalp tenderness. EYES: Pupils equal round and reactive. Extraocular motions intact. No scleral icterus. No injection or drainage. ENT: Nose without bleeding, purulent drainage or septal hematoma. Throat without erythema, tonsillar hypertrophy or exudate. Uvula midline. Airway patent. NECK: Trachea midline. No JVD or lymphadenopathy. Supple, nontender, no meningeal signs. CARDIOVASCULAR: Regular rate and rhythm without murmurs, gallops, or rubs. RESPIRATORY: Clear to auscultation. Breath sounds equal bilaterally. No wheezes , rales, or rhonchi. GASTROINTESTINAL: Abdomen soft, non-tender, nondistended. No hepato-splenomegaly , or palpable masses. No guarding. MUSCULOSKELETAL: Extremities without clubbing, cyanosis, or edema. No joint tenderness, effusion, or edema noted. No calf tenderness. NEUROLOGICAL: Awake and alert. Cranial nerves II through XII intact. Motor and sensory grossly within normal limits. Normal speech. Laboratory Laboratory Tests Test 02/08/18 17:24 White Blood Count 15.7 Red Blood Count 3.99 Hemoglobin 13.5 Hematocrit 40.4 Mean Corpuscular Volume 101.2 Mean Corpuscular Hemoglobin 33.9 Mean Corpuscular Hemoglobin Concent 33.5 Red Cell Distribution Width 14.6 Platelet Count 397 Mean Platelet Volume 7.7 Neutrophils (%) (Auto) 70.3 Lymphocytes (%) (Auto) 22.2 Monocytes (%) (Auto) 5.9 Eosinophils (%) (Auto) 0.7 Basophils (%) (Auto) 0.9 Neutrophils # (Auto) 11.1 Lymphocytes # (Auto) 3.5 Monocytes # (Auto) 0.9 Eosinophils # (Auto) 0.1 Basophils # (Auto) 0.1 CBC Comment DIFF FINAL Differential Comment Blood Urea Nitrogen 14 Creatinine 0.57 Random Glucose 65 Calcium Level 8.8 Sodium Level 142 Potassium Level 3.9 Chloride Level 107 Carbon Dioxide Level 23.4 Anion Gap 12 Estimat Glomerular Filtration Rate 109 Result Diagram: 02/08/18 1724 02/08/18 1724 Caprin VTE Risk Assessment Caprini VTE Risk Assessment: No/Low Risk (score <= 1) Caprini Risk Assessment Model Point Value = 1 Point Value = 2 Point Value = 3 Point Value = 5 Age 41-60 Minor surgery BMI > 25 kg/m2 Swollen legs Varicose veins or History of unexplained or recurrent spontaneous Oral contraceptives or hormone replacement Sepsis (< 1 month) Serious lung disease, including pneumonia (< 1 month) Abnormal pulmonary function Acute myocardial infarction Congestive heart failure (< 1 month) History of inflammatory bowel disease Medical patient at bed rest Age 61-74 Arthroscopic surgery Major open surgery (> 45 min) Laparoscopic surgery (> 45 min) Malignancy Confined to bed (> 72 hours) Immobilizing plaster cast Central venous access Age >= 75 History of VTE Family history of VTE Factor V Leiden Prothrombin [id number] Lupus anticoagulant Anticardiolipin antibodies Elevated serum homocysteine Heparin-induced thrombocytopenia Other congenital or acquired thrombophilia Stroke (< 1 month) Elective arthroplasty Hip, pelvis, or leg fracture Acute spinal cord injury (< 1 month) Prophylaxis Regimen Total Risk Factor Score Risk Level Prophylaxis Regimen 0-1 Low Early ambulation 2 Moderate Order ONE of the following: *Sequential Compression Device (SCD) *Heparin 5000 units SQ BID 3-4 Higher Order ONE of the following medications: *Heparin 5000 units SQ TID *Enoxaparin/Lovenox 40 mg SQ daily (WT < 150 kg, CrCl > 30 mL/min) *Enoxaparin/Lovenox 30 mg SQ daily (WT < 150 kg, CrCl > 10-29 mL/min) *Enoxaparin/Lovenox 30 mg SQ BID (WT < 150 kg, CrCl > 30 mL/min) AND/OR *Sequential Compression Device (SCD) 5 or more Highest Order ONE of the following medications: *Heparin 5000 units SQ TID (Preferred with Epidurals) *Enoxaparin/Lovenox 40 mg SQ daily (WT < 150 kg, CrCl > 30 mL/min) *Enoxaparin/Lovenox 30 mg SQ daily (WT < 150 kg, CrCl > 10-29 mL/min) *Enoxaparin/Lovenox 30 mg SQ BID (WT < 150 kg, CrCl > 30 mL/min) AND *Sequential Compression Device (SCD) Assessment and Plan Assessment and Plan Assessment/plan: 1. Pneumothorax Chest x-ray repeated in the emergency department showed persistent apical left sided pneumothorax that is unchanged from previous Repeat chest x-ray in the morning Given the patient is symptomatic, interventional radiology consulted to possibly place chest tube pending patient's clinical condition 2. Lung mass Continue outpatient workup 3. Hypertension/hyperlipidemia Continue home medication 4. Coronary artery disease Continue to hold home Plavix/aspirin given possible chest tube placement tomorrow FEN N.p.o. Electrolytes: Monitor and replete as needed Holding pharmacologic anticoagulation secondary to possible procedure tomorrow NS at 70 cc/hour Lali Tate MD February 08, 2018 22:14
[2018-02-08] MEDS: SODIUM CHLOR 0.9% 1000 ML INJ 1,000 ML IV SCH (23:27)
[2018-02-08 23:44] VITALS: BP 127/54; PULSE 61; RESP 16; TEMP 98.3; O2SAT 95
[2018-02-08] MEDS ORDERED: MORPHINE SULFATE 2 MG/ML SYRINGE IV PRN (23:45)
[2018-02-08] MEDS: ATORVASTATIN 20 MG TAB PO SCH (23:48)
[2018-02-09] VITALS (14 sets, daily range): BP systolic 116–141; BP diastolic 55–67; PULSE 46–75; RESP 16–20; TEMP 97.6–98.5; O2SAT 91–100
[2018-02-09 04:15] LABS: AUTOMATED NEUTROPHIL # 8.2 TH/MM3 (1.8-7.7); BASOPHIL # 0.1 TH/MM3 (0-0.2); EOSINOPHIL # 0.1 TH/MM3 (0-0.4); EOSINOPHIL % 0.7 % (0.0-4.0); HEMATOCRIT 37.8 % (35.0-46.0); HEMOGLOBIN 12.8 GM/DL (11.6-15.3); LYMPH % 24.4 % (9.0-44.0); MEAN CELL VOLUME 101.1 FL (80.0-100.0); MEAN CORPUSCULAR HEMOGLOBIN 34.4 PG (27.0-34.0); MEAN PLATELET VOLUME 7.4 FL (7.0-11.0); MONO % 7.9 % (0.0-8.0); PLATELET COUNT 301 TH/MM3 (150-450); RED BLOOD COUNT 3.74 MIL/MM3 (4.00-5.30); RED CELL DISTRIBUTION WIDTH 14.5 % (11.6-17.2); WHITE BLOOD COUNT 12.4 TH/MM3 (4.0-11.0)
[2018-02-09 04:36] LABS: BICARBONATE 28.1 MEQ/L (21.0-32.0); CALCIUM 8.3 MG/DL (8.5-10.1); CREATININE 0.47 MG/DL (0.50-1.00)
--- NOTE | 2018-02-09 06:30 | RADRPT ---
EXAM DATE/TIME: 02/09/2018 05:39 [facility] COMPARISON: CT THORAX W CONTRAST, October 21, 2017, 11:06. CHEST SINGLE AP, October 20, 2017, 16:53. INDICATIONS : Pneumothorax MEDICAL HISTORY : Hypertension. Smoker. SURGICAL HISTORY : Coronary artery stent. ENCOUNTER: Subsequent ACUITY: 2 days PAIN SCORE: 4/10 LOCATION: Left chest FINDINGS: The lungs are hyperaerated bilaterally. Cavitary lesion within the left upper lobe is unchanged in th e prior study. No effusions. Heart is normal in size. Mild scoliotic curvature. CONCLUSION: Hyperinflation suggesting COPD. Stable cavitary lesion within the left upper lobe. Sky Urbina Jr., MD on February 09, 2018 at 6:28 Board Certified Radiologist. This report was verified electronically.
[2018-02-09] MEDS: MORPHINE SULFATE 4 MG/ML INJ IV PUSH PRN ×4 (06:55→22:56)
[2018-02-09] MEDS: RAMIPRIL 2.5 MG CAP PO SCH (09:01)
[2018-02-09] MEDS: SODIUM CHLORIDE 0.9% FLUSH 10 ML FLUSH IV FLUSH SCH ×2 (09:02→22:08)
[2018-02-09] MEDS: METOPROLOL TARTRATE 25 MG TAB PO SCH ×2 (09:02→22:07)
--- NOTE | 2018-02-09 11:08 | RADRPT ---
EXAM DATE/TIME: 02/09/2018 10:44 [facility] COMPARISON: CHEST EXPIRATION ONLY, February 08, 2018, 16:02. INDICATIONS : Evaluate for pneumothorax. MEDICAL HISTORY : Hypertension. Chronic obstructive pulmonary disease. Arthritis. Smoker. SURGICAL HISTORY : Appendectomy. Coronary artery stent. ENCOUNTER: Subsequent ACUITY: 2 days PAIN SCORE: 6/10 LOCATION: Left posterior chest that radiates under the left breast. FINDINGS: Interval development of blunted left lateral costophrenic angle consistent with a small left effusion . Right lung is clear. There is increased lucency over the left mid to upper lungs and along the medi astinal border. A moderate left-sided pneumothorax is present. There is no mediastinal shift. A pleur al line is seen extending to the level of the left fifth to sixth rib interspace. Patchy left basilar airspace disease. CONCLUSION: Increased left pneumothorax. Juvenal Link MD on February 09, 2018 at 11:04 Board Certified Radiologist. This report was verified electronically.
[2018-02-09] MEDS ORDERED: fentaNYL CITRATE 250 MCG/5 ML AMP ONE (11:17)
[2018-02-09] MEDS ORDERED: MIDAZOLAM HCL 5 MG/5 ML VIAL ONE (11:18)
[2018-02-09] MEDS: SODIUM CHLOR 0.9% 1000 ML INJ 1,000 ML IV SCH ×2 (11:57→22:08)
--- NOTE | 2018-02-09 12:23 | RADRPT ---
EXAM DATE/TIME: 02/09/2018 11:52 [facility] COMPARISON: No previous studies available for comparison. INDICATIONS : Patient presents with pneumothorax post biopsy, in need of chest tube. MEDICAL HISTORY : SURGICAL HISTORY : ENCOUNTER: Initial ACUITY: 1 day PAIN SCORE: 7/10 LOCATION: Left side FLUORO TIME: 2.4 minutes IMAGE SERIES: 1 SEDATION TIME: 30 minutes cc MEDICATION(S): 1.) 1.5 mg midazolam (Versed) IV 2.) 75 mcg fentanyl (Sublimaze) IV DEVICE(S): 1.) 10 Hungarian non-locking catheter PROCEDURE : 1. Fluoroscopically guided chest tube placement. 2. Conscious sedation with continuous EKG and oximetry monitoring. The risks, benefits and alternatives to the procedure were explained and verbal and written consent w as obtained. The site was prepped in sterile fashion. Full sterile technique was used, including ca p, mask, sterile gloves and gown and a large sterile sheet. Hand hygiene and 2% chlorhexidine and/or betadine/alcohol prep was utilized per protocol for cutaneous antisepsis. The skin and subcutaneous tissues were infiltrated with local anesthetic solution. With fluoroscopic guidance the chest was punctured between the first and second interspace and the pr escribed catheter was placed in the lung apex. Wall suction was applied. Post procedure images demon strate satisfactory position of the tube. The catheter was sutured in place and a Percu-Stay was jill lied. Conscious sedation was performed with the prescribed dosages and duration as above in the presence of an independent trained radiology nurse to assist in the monitoring of the patient. EKG and oximetry remained stable throughout the procedure. The patient tolerated the procedure well and there were n o complications. The patient was sent to post anesthesia recovery in stable condition. CONCLUSION: Uncomplicated chest tube placement as above. Heladio Westbrook MD on February 09, 2018 at 12:21 Board Certified Radiologist. This report was verified electronically.
--- NOTE | 2018-02-09 13:46 | HHI.PR ---
Subjective Remarks Follow up for pneumothorax. The patient is seen s/p chest tube placement. She reports left thorax pain at site of chest tube. She denies any significant shortness of breath. Denies any fevers/chills. She has occasional cough productive of clear sputum. She states she was sick with bronchitis 2 weeks ago and finished course of steroids and antibiotics 1 week ago. She denies any other medical complaints at this time. Objective Vitals Vital Signs Date Time Temp Pulse Resp B/P (MAP) Pulse Ox O2 Delivery O2 Flow Rate FiO2 02/09/18 13:25 97 Nasal Cannula 2.00 02/09/18 13:25 46 18 126/60 (82) 97 02/09/18 12:55 49 18 128/60 (82) 96 02/09/18 12:55 Nasal Cannula 2.00 02/09/18 12:25 49 18 128/60 (82) 97 02/09/18 12:25 Nasal Cannula 2.00 02/09/18 12:10 97.6 46 18 129/55 (79) 93 02/09/18 08:08 98 Nasal Cannula 4.00 02/09/18 08:05 53 02/09/18 07:37 98.1 75 18 116/67 (83) 100 02/09/18 04:05 50 02/09/18 03:03 98.5 58 16 134/64 (87) 98 02/09/18 00:31 59 02/08/18 23:44 98.3 61 16 127/54 (78) 95 02/08/18 22:26 98 Nasal Cannula 4.00 02/08/18 22:10 100 Non-Rebreather 15.00 100 02/08/18 20:37 56 16 126/60 (82) 100 Non-Rebreather 02/08/18 18:46 100 Non-Rebreather 15.00 02/08/18 18:34 75 21 164/72 (102) 97 Nasal Cannula 2.00 02/08/18 18:31 97 Nasal Cannula 2.00 02/08/18 18:13 93 21 164/72 (102) 94 Room Air 02/08/18 18:10 93 21 94 Room Air 02/08/18 17:34 98.1 100 20 142/65 (90) 95 I/O 5/17/18 5/17/18 02/08/18 02/09/18 02/09/18 02/09/18 06:59 14:59 22:59 06:59 14:59 22:59 Intake Total 490 ml Balance 490 ml IV Total 490 ml # Voids 1 1 Result Diagram: 02/09/18 0336 02/09/18 0336 Imaging Last Impressions Chest X-Ray 02/09/18 0600 Signed Impressions: Service Date/Time: Friday, February 09, 2018 05:39 - CONCLUSION: Hyperinflation suggesting COPD. Stable cavitary lesion within the left upper lobe. Sky Urbina Jr., MD Chest Tube Insertion 02/09/18 0000 Signed Impressions: Service Date/Time: Friday, February 09, 2018 11:52 - CONCLUSION: Uncomplicated chest tube placement as above. Heladio Westbrook MD Objective Remarks GENERAL: Well-nourished, well-developed middle aged female patient in [facility]. SKIN: Warm and dry. No rash. HEENT: Normocephalic. Atraumatic. Pupils equal and round. Mucous membranes pink and moist. NECK: Supple. Trachea midline. CARDIOVASCULAR: Regular rate and rhythm. No murmur appreciated. RESPIRATORY: No accessory muscle use. Clear to auscultation. Breath sounds equal bilaterally. Chest tube at left thorax. GASTROINTESTINAL: Abdomen soft, non-tender, nondistended. Normoactive bowel sounds x4. MUSCULOSKELETAL: No obvious deformities. Extremities without clubbing, cyanosis , or edema. NEUROLOGICAL: Awake and alert. No obvious cranial nerve deficits. Motor grossly within normal limits. Moving all extremities spontaneously. Normal speech. PSYCHIATRIC: Appropriate mood and affect; insight and judgment normal. Procedures 02/09/18 - chest tube placement by IR Medications and IVs Current Medications Medications (Trade) Dose Ordered Sig/Alison Route Start Time Stop Time Status Last Admin (NS Flush) 2 ml UNSCH PRN IV FLUSH 02/08/18 22:00 (NS Flush) 2 ml BID IV FLUSH 02/09/18 09:00 (Tylenol) 650 mg Q4H PRN PO 02/08/18 22:00 (Zofran Inj) 4 mg Q6H PRN IVP 02/08/18 22:00 (Narcan Inj) 0.4 mg UNSCH PRN IV PUSH 02/08/18 22:00 (Lipitor) 20 mg HS PO 02/08/18 22:15 02/08/18 23:48 (Lopressor) 25 mg Q12HR PO 02/09/18 09:00 02/09/18 09:02 (Altace) 2.5 mg DAILY PO 02/09/18 09:00 02/09/18 09:01 Sodium Chloride 1,000 ml @ 70 mls/hr [id number] IV 02/08/18 22:15 02/08/18 23:27 (Morphine Inj) 2 mg Q4H PRN IV PUSH 02/09/18 07:00 02/09/18 13:57 A/P Assessment and Plan 37-year-old female with a past medical history significant for hypertension, hyperlipidemia and coronary artery disease presents to the emergency department for the evaluation of shortness of breath. The patient underwent a lung biopsy earlier today 02/08 and had a small apical pneumothorax status post procedure. Pneumothorax: s/p lung biopsy on 02/08. -CXR 02/08 reviewed, showed persistent apical left sided pneumothorax -CXR 02/09 reviewed, showed increasing left pneumothorax -IR consulted, placed chest tube 02/09 -Continue pain control prn, O2 as needed, nebs as needed -IR to follow Lung mass: recent diagnosis -Continue outpatient workup Hypertension/hyperlipidemia: chronic, BP well controlled -Continue home meds including statin, ramipril, metoprolol (with hold parameters) -Monitor BP, adjust antihypertensives as needed Coronary artery disease -Restart patient's plavix tomorrow as she had recent stent of LAD in -Hold patient's aspirin for now Leukocytosis: WBC 15K, suspect secondary to recent steroid use prescribed for bronchitis -continue to monitor CBC, WBC trending down 12.4K -monitor for any signs of infection; currently afebrile DVT Prophylaxis: teds/SCDs; on plavix, avoid further anticoagulation with recent chest tube placement Discharge Planning Discharge pending further clinical improvement after removal of chest tube. Vicky Saldivar PA-C February 09, 2018 1:46 pm
[2018-02-09] MEDS ORDERED: MORPHINE SULFATE 4 MG/ML INJ IV PUSH ONE (14:30)
--- NOTE | 2018-02-09 14:37 | EKG ---
Date Performed: 02/08/2018 Time Performed: 17:49:43 PTAGE: 57 years EKG: Sinus rhythm POSSIBLE LEFT ATRIAL ENLARGEMENT BORDERLINE ECG PREVIOUS TRACING : 01/27/2018 21.42 Since the previous tracing, no significant change noted DOCTOR: Reji Castillo Interpretating Date/Time 02/09/2018 14:34:05
[2018-02-09] MEDS ORDERED: RESP: ALBUTEROL 2.5 MG/IPRATROPIUM 0.5 MG NEB (PRN) NEB (15:00)
[2018-02-09] MEDS: ATORVASTATIN 20 MG TAB PO SCH (22:07)
[2018-02-10] VITALS (8 sets, daily range): BP systolic 120–149; BP diastolic 55–66; PULSE 49–65; RESP 16–18; TEMP 98.2–98.8; O2SAT 92–98
[2018-02-10] MEDS: MORPHINE SULFATE 4 MG/ML INJ IV PUSH PRN ×5 (04:10→20:59)
--- NOTE | 2018-02-10 04:49 | RADRPT ---
EXAM DATE/TIME: 02/10/2018 03:50 [facility] COMPARISON: CHEST EXPIRATION ONLY, February 09, 2018, 10:44. INDICATIONS : Evaluate for left pneumothorax MEDICAL HISTORY : Hypertension. Chronic obstructive pulmonary disease. Arthritis. Smoker. SURGICAL HISTORY : Coronary aretery stent ENCOUNTER: Subsequent ACUITY: 1 day PAIN SCORE: 5/10 LOCATION: Left chest FINDINGS: Small caliber left-sided chest tube present without significant pneumothorax. Mild basilar airspace d isease. Heart size upper limits normal. CONCLUSION: 1. Mild basilar airspace disease. Small caliber left chest tube without significant pneumothorax. Wade Lam MD on February 10, 2018 at 4:46 Board Certified Radiologist. This report was verified electronically.
[2018-02-10 07:47] LABS: AUTOMATED NEUTROPHIL # 8.3 TH/MM3 (1.8-7.7); BASOPHIL # 0.1 TH/MM3 (0-0.2); BASOPHIL % 0.6 % (0.0-2.0); EOSINOPHIL # 0.1 TH/MM3 (0-0.4); EOSINOPHIL % 0.8 % (0.0-4.0); HEMATOCRIT 37.6 % (35.0-46.0); HEMOGLOBIN 12.8 GM/DL (11.6-15.3); LYMPH % 21.1 % (9.0-44.0); LYMPHOCYTE # 2.4 TH/MM3 (1.0-4.8); MEAN CELL VOLUME 101.9 FL (80.0-100.0); MEAN CORPUSCULAR HEMOGLOBIN 34.7 PG (27.0-34.0); MEAN PLATELET VOLUME 7.7 FL (7.0-11.0); MONO % 5.2 % (0.0-8.0); MONOCYTE # 0.6 TH/MM3 (0-0.9); NEUT % 72.3 % (16.0-70.0); PLATELET COUNT 281 TH/MM3 (150-450); RED CELL DISTRIBUTION WIDTH 14.3 % (11.6-17.2); WHITE BLOOD COUNT 11.5 TH/MM3 (4.0-11.0)
[2018-02-10 08:13] LABS: BICARBONATE 26.9 MEQ/L (21.0-32.0); CALCIUM 8.1 MG/DL (8.5-10.1); CREATININE 0.52 MG/DL (0.50-1.00)
[2018-02-10] MEDS: RAMIPRIL 2.5 MG CAP PO SCH (08:28)
[2018-02-10] MEDS: CLOPIDOGREL 75 MG TAB PO SCH (08:28)
[2018-02-10] MEDS: METOPROLOL TARTRATE 25 MG TAB PO SCH ×2 (08:32→21:11)
[2018-02-10] MEDS: SODIUM CHLORIDE 0.9% FLUSH 10 ML FLUSH IV FLUSH SCH ×2 (08:32→21:00)
--- NOTE | 2018-02-10 09:29 | HHI.PR ---
Subjective Remarks Patient seen and examined this morning, their vitals are stable and the patient is afebrile. Saturating comfortably on room air. Denies CP. Reports some back and scapula pain. She is asking if she can be discharged by tomorrow. Objective Vital Signs Date Time Temp Pulse Resp B/P (MAP) Pulse Ox O2 Delivery O2 Flow Rate FiO2 02/10/18 07:20 Nasal Cannula 2.00 02/10/18 06:01 98.2 56 16 144/65 (91) 92 02/10/18 00:00 98.8 55 16 129/59 (82) 93 02/09/18 22:08 Nasal Cannula 2.00 02/09/18 20:00 97.9 52 17 122/56 (78) 95 02/09/18 16:10 57 02/09/18 16:07 98.4 69 20 137/64 (88) 91 02/09/18 14:10 Nasal Cannula 2.00 02/09/18 13:55 97 Nasal Cannula 2.00 02/09/18 13:45 46 18 141/60 (87) 95 02/09/18 13:25 97 Nasal Cannula 2.00 02/09/18 13:25 46 18 126/60 (82) 97 02/09/18 12:55 49 18 128/60 (82) 96 02/09/18 12:55 Nasal Cannula 2.00 02/09/18 12:25 49 18 128/60 (82) 97 02/09/18 12:25 Nasal Cannula 2.00 02/09/18 12:10 97.6 46 18 129/55 (79) 93 I/O 02/09/18 02/09/18 02/09/18 02/10/18 02/10/18 02/10/18 07:00 15:00 23:00 07:00 15:00 23:00 Intake Total 490 ml 0 ml Output Total 16 ml Balance 490 ml 0 ml -16 ml Intake Oral 0 ml IV Total 490 ml Output Chest Tube Drainage Total 16 ml # Voids 1 2 0 Result Diagram: 02/10/18 0720 02/10/1820 Imaging Last Impressions Chest X-Ray 02/10/18 0000 Signed Impressions: Service Date/Time: Saturday, February 10, 2018 03:50 - CONCLUSION: 1. Mild basilar airspace disease. Small caliber left chest tube without significant pneumothorax. Wade Lam MD Chest Tube Insertion 02/09/18 0000 Signed Impressions: Service Date/Time: Friday, February 09, 2018 11:52 - CONCLUSION: Uncomplicated chest tube placement as above. Heladio Westbrook MD Objective Remarks GENERAL: Well-appearing, no acute distress SKIN: Warm and dry. HEAD: Normocephalic. EYES: No scleral icterus. No injection or drainage. NECK: Supple, trachea midline. No JVD or lymphadenopathy. CARDIOVASCULAR: Regular rate and rhythm without murmurs, gallops, or rubs. RESPIRATORY: Breath sounds equal bilaterally. No accessory muscle use. Chest tube left chest. GASTROINTESTINAL: Abdomen soft, non-tender, nondistended. MUSCULOSKELETAL: No cyanosis, or edema. A/P Problem List: (1) Pneumothorax, post biopsy, left ICD Code: J95.811 - Postprocedural pneumothorax Status: Acute (2) CAD (coronary artery disease) ICD Code: I25.10 - Atherosclerotic heart disease of [place] coronary artery without angina pectoris Status: Chronic (3) Hypertension ICD Code: I10 - Essential (primary) hypertension Status: Chronic (4) Hyperlipidemia ICD Code: E78.5 - Hyperlipidemia, unspecified Status: Chronic (5) Dyspnea ICD Code: R06.00 - Dyspnea, unspecified (6) Cavitary lesion of lung ICD Code: J98.4 - Other disorders of lung Assessment and Plan In summary this is a 57-year-old female patient with a medically significant for hypertension, hyperlipidemia and coronary artery disease. She presented to the ER for shortness of breath after undergoing an outpatient lung biopsy that resulted in a small apical pneumothorax. The patient had a chest tube placed in the ER. Pneumothorax Status post chest tube placement by IR on 02/09 CXR February 08 showed persistent left apical pneumothorax CXR February 09 showed increasing left pneumothorax CXR February 10 showed small caliber chest tube without significant pneumothorax Lung mass Currently being worked up as an outpatient Hypertension, hyperlipidemia, and coronary artery disease All patient's home meds have been resumed: Statin, verapamil, metoprolol, Plavix Leukocytosis This is improving, likely related to the steroid use the patient was getting as an outpatient for bronchitis. Discharge Planning DC pending resolution of pneumothorax, removal of chest tube clinical improvement. Likely an additional 1-2 days. Problem Qualifiers (1) Dyspnea: Qualified Codes: R06.00 - Dyspnea, unspecified Ester Knight MD February 10, 2018 09:29
--- NOTE | 2018-02-10 16:07 | RADRPT ---
EXAM DATE/TIME: 02/10/2018 15:47 [facility] COMPARISON: CHEST EXPIRATION ONLY, February 10, 2018, 3:50. CHEST SINGLE AP, February 09, 2018, 5:39. INDICATIONS : Pneumothorax MEDICAL HISTORY : Hypertension. Chronic obstructive pulmonary disease. Arthritis. Smoker. SURGICAL HISTORY : Coronary artery stent. ENCOUNTER: Subsequent ACUITY: 3 days PAIN SCORE: 8/10 LOCATION: Left chest FINDINGS: Stable left apical chest tube. No significant pneumothorax following chest tube clamping. Redemonstra tion of biopsied mass in the left upper lobe. Cardiomediastinal contours are stable. Remainder of exa m is unchanged. CONCLUSION: 1. No significant pneumothorax following chest tube clamping. Heladio Westbrook MD on February 10, 2018 at 16:04 Board Certified Radiologist. This report was verified electronically.
--- NOTE | 2018-02-10 19:24 | RADRPT ---
EXAM DATE/TIME: 02/10/2018 18:56 [facility] COMPARISON: CHEST EXPIRATION ONLY, February 10, 2018, 3:50. INDICATIONS : Post left chest tube removal. MEDICAL HISTORY : Hypertension. Chronic obstructive pulmonary disease. Arthritis. Smoker. SURGICAL HISTORY : Coronary artery stent. ENCOUNTER: Subsequent ACUITY: 3days PAIN SCORE: 0/10 LOCATION: Bilateral chest FINDINGS: A single frontal expiratory view of the chest was performed. Left basal atelectasis. No pneumothorax. Left-sided chest tube removed. The cardio-mediastinal contours and bronchopulmonary markings are unremarkable for an expiratory exam . Osseous structures are intact. CONCLUSION: No pneumothorax. Moy Bloom MD on February 10, 2018 at 19:21 Board Certified Radiologist. This report was verified electronically.
[2018-02-10] MEDS: ATORVASTATIN 20 MG TAB PO SCH (20:57)
[2018-02-11] VITALS: BP 126/57; PULSE 59; RESP 18; TEMP 98.2; O2SAT 96
[2018-02-11 04:00] VITALS: BP 123/64; PULSE 62; RESP 18; TEMP 98.3; O2SAT 97
[2018-02-11] MEDS: MORPHINE SULFATE 4 MG/ML INJ IV PUSH PRN (04:17)
[2018-02-11 05:32] VITALS: PULSE 55
--- NOTE | 2018-02-11 07:29 | HHI.PR ---
Subjective Remarks Patient seen and examined this morning, their vitals are stable and the patient is afebrile. Saturating comfortably on room air. Denies CP. Chest tube removed yesterday. Patient states she feels excellent. States she has not felt this good in months. Breathing without difficulty, denies cough. Wants to know when she will get hte results of her outpatient biopsy. She is very anxious to go home. Objective Vital Signs Date Time Temp Pulse Resp B/P (MAP) Pulse Ox O2 Delivery O2 Flow Rate FiO2 02/11/18 05:32 55 02/11/18 04:00 98.3 62 18 123/64 (83) 97 02/11/18 00:00 98.2 59 18 126/57 (80) 96 02/10/18 22:07 63 02/10/18 20:57 Room Air 02/10/18 20:00 98.3 65 18 121/56 (77) 98 02/10/18 16:00 55 02/10/18 16:00 Room Air 02/10/18 16:00 98.5 65 17 134/63 (86) 96 02/10/18 12:00 98.6 55 17 120/55 (76) 92 02/10/18 12:00 59 02/10/18 09:30 95 Nasal Cannula 2.00 02/10/18 08:00 98.4 53 17 149/66 (93) 96 02/10/18 08:00 49 I/O 02/10/18 02/10/18 02/10/18 02/11/18 02/11/18 02/11/18 07:00 15:00 23:00 07:00 15:00 23:00 Intake Total 0 ml 950 ml Output Total 16 ml 0 ml Balance 0 ml 934 ml 0 ml Intake Oral 0 ml IV Total 950 ml Output Chest Tube Drainage Total 16 ml 0 ml # Voids 0 1 5 # Bowel Movements 1 0 Result Diagram: 02/10/18 0720 02/10/18 0720 Imaging Last Impressions Chest X-Ray 02/10/18 1600 Signed Impressions: Service Date/Time: Saturday, February 10, 2018 15:47 - CONCLUSION: 1. No significant pneumothorax following chest tube clamping. Heladio Westbrook MD Chest Tube Insertion 02/09/18 0000 Signed Impressions: Service Date/Time: Friday, February 09, 2018 11:52 - CONCLUSION: Uncomplicated chest tube placement as above. Heladio Westbrook MD Objective Remarks GENERAL: Well-appearing, no acute distress SKIN: Warm and dry. HEAD: Normocephalic. EYES: No scleral icterus. No injection or drainage. NECK: Supple, trachea midline. No JVD or lymphadenopathy. CARDIOVASCULAR: Regular rate and rhythm without murmurs, gallops, or rubs. RESPIRATORY: Breath sounds equal bilaterally. No accessory muscle use. GASTROINTESTINAL: Abdomen soft, non-tender, nondistended. MUSCULOSKELETAL: No cyanosis, or edema. A/P Problem List: (1) Pneumothorax, post biopsy, left ICD Code: J95.811 - Postprocedural pneumothorax Status: Acute (2) CAD (coronary artery disease) ICD Code: I25.10 - Atherosclerotic heart disease of [place] coronary artery without angina pectoris Status: Chronic (3) Hypertension ICD Code: I10 - Essential (primary) hypertension Status: Chronic (4) Hyperlipidemia ICD Code: E78.5 - Hyperlipidemia, unspecified Status: Chronic (5) Dyspnea ICD Code: R06.00 - Dyspnea, unspecified (6) Cavitary lesion of lung ICD Code: J98.4 - Other disorders of lung Assessment and Plan In summary this is a 57-year-old female patient with a medically significant for hypertension, hyperlipidemia and coronary artery disease. She presented to the ER for shortness of breath after undergoing an outpatient lung biopsy that resulted in a small apical pneumothorax. The patient had a chest tube placed in the ER by IR and has monitored with serial CXR. Pneumothorax Status post chest tube placement by IR on 02/09 CXR February 08 showed persistent left apical pneumothorax CXR February 09 showed increasing left pneumothorax CXR February 10 showed small caliber chest tube without significant pneumothorax CT clamped 02/10 in the afternoon, repeat CXR after shows no significant pneumothorax after clamping. Lung mass Currently being worked up as an outpatient Hypertension, hyperlipidemia, and coronary artery disease All patient's home meds have been resumed: Statin, verapamil, metoprolol, Plavix Leukocytosis This is improving, likely related to the steroid use the patient was getting as an outpatient for bronchitis. Discharge Planning Pneumothorax resolved. Per nurse IR okay to d/c. Will dc patient home later today with outpatient follow up. Problem Qualifiers (1) Dyspnea: Qualified Codes: R06.00 - Dyspnea, unspecified Ester Knight MD February 11, 2018 07:28
[2018-02-11 08:00] VITALS: BP 131/60; PULSE 64; RESP 16; TEMP 97.9; O2SAT 94
--- NOTE | 2018-02-11 08:18 | HHI.DCPOC ---
Discharge Care Plan Diagnosis: (1) Pneumothorax, post biopsy, left Goals to Promote Your Health * To prevent worsening of your condition and complications * To maintain your health at the optimal level Directions to Meet Your Goals Take your medications as prescribed Follow your dietary instruction Follow activity as directed Keep your appointments as scheduled Take your immunizations and boosters as scheduled If your symptoms worsen call your PCP, if no PCP go to Urgent Care Center or Emergency Room Smoking is Dangerous to Your Health. Avoid second hand smoke Call the 24-hour hour crisis hotline for domestic abuse at Ester Knight MD February 11, 2018 08:18
--- NOTE | 2018-02-11 08:26 | HHI.DS ---
Discharge Summary Admission Date February 09, 2018 at 12:49 Discharge Date: February 11, 2018 Admitting Diagnosis Respiratory distress s/p Lung biopsy; Left apical pneumothorax CBC/BMP: 02/10/18 0720 02/10/18 0720 Significant Findings Laboratory Tests Test 02/08/18 17:24 02/09/18 03:36 02/10/18 07:20 White Blood Count 15.7 TH/MM3 (4.0-11.0) 12.4 TH/MM3 (4.0-11.0) 11.5 TH/MM3 (4.0-11.0) Red Blood Count 3.99 MIL/MM3 (4.00-5.30) 3.74 MIL/MM3 (4.00-5.30) 3.70 MIL/MM3 (4.00-5.30) Mean Corpuscular Volume 101.2 FL (80.0-100.0) 101.1 FL (80.0-100.0) 101.9 FL (80.0-100.0) Neutrophils (%) (Auto) 70.3 % (16.0-70.0) 72.3 % (16.0-70.0) Neutrophils # (Auto) 11.1 TH/MM3 (1.8-7.7) 8.2 TH/MM3 (1.8-7.7) 8.3 TH/MM3 (1.8-7.7) Random Glucose 65 MG/DL (74-106) Mean Corpuscular Hemoglobin 34.4 PG (27.0-34.0) 34.7 PG (27.0-34.0) Monocytes # (Auto) 1.0 TH/MM3 (0-0.9) Creatinine 0.47 MG/DL (0.50-1.00) Calcium Level 8.3 MG/DL (8.5-10.1) 8.1 MG/DL (8.5-10.1) Imaging Last Impressions Chest X-Ray 02/10/18 1600 Signed Impressions: Service Date/Time: Saturday, February 10, 2018 15:47 - CONCLUSION: 1. No significant pneumothorax following chest tube clamping. Heladio Westbrook MD Chest Tube Insertion 02/09/18 0000 Signed Impressions: Service Date/Time: Friday, February 09, 2018 11:52 - CONCLUSION: Uncomplicated chest tube placement as above. Heladio Westbrook MD PE at Discharge GENERAL: Well-appearing, no acute distress SKIN: Warm and dry. HEAD: Normocephalic. EYES: No scleral icterus. No injection or drainage. NECK: Supple, trachea midline. No JVD or lymphadenopathy. CARDIOVASCULAR: Regular rate and rhythm without murmurs, gallops, or rubs. RESPIRATORY: Breath sounds equal bilaterally. No accessory muscle use. GASTROINTESTINAL: Abdomen soft, non-tender, nondistended. MUSCULOSKELETAL: No cyanosis, or edema. Hospital Course In summary this is a 57-year-old female patient with a medically significant for hypertension, hyperlipidemia and coronary artery disease. She presented to the ER for shortness of breath after undergoing an outpatient lung biopsy that resulted in a small apical pneumothorax. The patient had a chest tube placed in the ER by IR. Patient was monitored with serial CXR. CXR on 02/10 showed resolution of pneumothorax. Chest tube was clamped and repeat CXR showed that the pneumothorax had still resolved. Patient showed significant clinical improvement. By 02/11 patient had reached maximum benefit from inpatient hospitalization and was discharged home with PCP follow up and was encouraged to keep appointment on 02/16 for her outpatient biopsy results. Pt Condition on Discharge: Stable Discharge Disposition: Discharge Home Discharge Instructions DIET: Follow Instructions for: Heart Healthy Diet Speech Therapy-Diet Recommenda: Regular Activities you can perform: Weight Bearing as Gregorio Follow up Referrals: PCP Follow-up - 1 Week Continued Medications: Aspirin (Aspirin [facility]) 81 Mg Chew 81 MG CHEW DAILY for CAD prevention/stents for 30 Days, #30 TAB 0 Refills Atorvastatin (Atorvastatin) 20 Mg Tab 20 MG PO HS for hyperlipidemia for 30 Days, #30 TAB Clopidogrel (Plavix) 75 Mg Tab 75 MG PO DAILY for HTN for 30 Days, #30 TAB Metoprolol Tartrate (Metoprolol Tartrate) 25 Mg Tab 25 MG PO Q12HR for CAD for 30 Days, #30 TAB Ramipril (Ramipril) 2.5 Mg Cap 2.5 MG PO DAILY for HTN for 30 Days, #30 CAP Ester Knight MD February 11, 2018 08:26
[2018-02-11] MEDS: METOPROLOL TARTRATE 25 MG TAB PO SCH (08:36)
[2018-02-11] MEDS: CLOPIDOGREL 75 MG TAB PO SCH (08:36)
[2018-02-11] MEDS: RAMIPRIL 2.5 MG CAP PO SCH (08:36)
[2018-02-11] MEDS: SODIUM CHLORIDE 0.9% FLUSH 10 ML FLUSH IV FLUSH SCH (08:37)
[2018-02-11 09:40] VITALS: O2SAT 98
--- NOTE | 2018-02-11 11:52 | RADRPT ---
EXAM DATE/TIME: 02/10/2018 00:00 [facility] COMPARISON: CHEST EXPIRATION ONLY, February 10, 2018, 18:56. INDICATIONS : PNEUMOTHORAXC DEVICE(S): 1.) Vaseline occlusive dressing 2.) GUAXE DRESSING PROCEDURE : Chest tube removal. Using aseptic technique the previously placed chest tube was easily removed in one piece and Vaseline gauze and sterile dressing was applied. Chest radiograph is to be obtained. CONCLUSION: Uncomplicated chest tube removal. Heladio Westbrook MD on February 11, 2018 at 11:50 Board Certified Radiologist. This report was verified electronically.
== END 2018-02-11 10:22 | disposition home or self-care (01) | DRG 201 ==
LOC: NEPE 17:25 → NEDA 20:01 → NEPHCDU 23:22 → N04B 02-09 12:06 → OBSVTOIN 02-09 12:49 → N05B 02-09 14:21
PROVIDERS: ADMIT Family Medicine; ATTEND Family Medicine
PROC: 0W9B30Z Drainage of Left Pleural Cavity with Drainage Device, Percutaneous Approach (ICD-10-PCS; principal; 2018-02-09)
DX: J95.811 Postprocedural pneumothorax (principal); J98.4 Other disorders of lung; I10 Essential (primary) hypertension; E78.5 Hyperlipidemia, unspecified; R06.03 Acute respiratory distress; I25.10 Atherosclerotic heart disease of native coronary artery without angina pectoris; D72.829 Elevated white blood cell count, unspecified; F17.200 Nicotine dependence, unspecified, uncomplicated; Z95.5 Presence of coronary angioplasty implant and graft; Z79.82 Long term (current) use of aspirin; Z79.899 Other long term (current) drug therapy
CPT/HCPCS: 32557; 71045; 71046; 80048; 85025; 93005; 99152; C1729; J2250; J2270; J3010; J7030

== ENCOUNTER 2018-11-08 19:55 | Observation (INO) ==
--- NOTE | 2018-11-08 20:30 | ED ---
HPI General Chief Complaint: Chest Pain Stated Complaint: pressure in chest /heart palp radiates to back Time Seen by Provider: 11/08/18 20:37 Source: patient Mode of arrival: ambulatory Limitations: no limitations History of Present Illness HPI narrative: 58-year-old female with known coronary vessel disease presents to the emergency department admitting to being noncompliant with her medications as she has no money to afford her blood pressure medication her cholesterol medication or her blood thinning agent. Patient also admits to ongoing tobacco use a pack per day more recently down to 5-6 cigarettes/day she cannot afford to buy cigarettes. Patient also drinks alcohol daily 6 pack of beer every other day and sometimes liquor and did drink alcohol this morning. Patient has also noted congested cough is not note any production of yellow- green sputum or hemoptysis. Patient states that chest pain does radiate into her back and into her arms. Patient states symptoms do remind her of her cardiac related symptoms. Patient also has history of hypertension and dyslipidemia. Patient also has history of COPD bronchitis and does not have a rescue inhaler. Patient presents as she states that for 2 days symptoms have progressively worsened and presents now with 6-7/10 in intensity chest pain. Patient states if she had nitroglycerin she would have taken it for her chest pain but did not have access to any nitroglycerin. Patient is not reporting abdominal pain flank pain dysuria frequency urgency upper or lower extremity swelling and no lower extremity pain or swelling. Patient had no injury or fall. Patient denies myalgias and arthralgias and has had some subjective fever but states that she does not have any resources to check mature. Patient presented to triage was noted to have temperature of 99 F mild tachycardia and hypertension and was tremulous. MD complaint: Reports chest pain STEMI Alert: No Onset (ago): day(s) (2) Duration: constant Onset: during rest Pain location: Reports left chest Severity: severe Severity scale (1-10): 7 Quality: Reports tightness and aching Pain radiation: Reports back Relieving factors: nothing Exacerbating factors: exertion Context: Reports recent illness (congested cough) Associated symptoms: Reports dyspnea, fever (subjective) and cough; Denies nausea, vomiting (but near post-tussive emesis episodes), diaphoresis, sense of impending doom, syncope, palpitations and leg swelling Treatments prior to arrival chest pain: Reports none Related Data On Oral Contraceptives: No Home Medications Medication Instructions Recorded Confirmed No Known Home Medications 11/08/18 11/08/18 Allergies Allergy/AdvReac Type Severity Reaction Status Date / Time No Known Allergies Allergy Verified 11/08/18 20:54 Review of Systems ROS: all other systems reviewed are negative [facility] Medical History Medical History CAD (coronary artery disease) (Acute) COPD (chronic obstructive pulmonary disease) (Acute) HTN (hypertension) (Acute) High cholesterol (Acute) Surgical History Surgical History Stented coronary artery (Acute) Social History Social History Substance History: No History of Abuse Second Hand Smoke Exposure: Yes Smoking Status: Current every day smoker Tobacco Type: Cigarettes How Often Do You Have a Drink Containing Alcohol: 4 or more times a week Recent Travel in [facility] within the Last 8 Weeks: No Recent Out of Country Travel within the Last 8 Weeks: No Exam Narrative Exam Narrative: GENERAL: Well-nourished, well-developed patient. No acute respiratory distress mildly tremulous triage vital signs blood pressure 157/79; pulse 107 and regular; respirations 15 and unlabored; temperature 99 F orally; room air O2 saturation 97% SKIN: Focused skin assessment warm/dry. HEAD: Normocephalic. EYES: No scleral icterus. No injection or drainage. NECK: Supple, trachea midline. No JVD or lymphadenopathy. CARDIOVASCULAR: Increased Regular rate and rhythm without murmurs, gallops, or rubs. RESPIRATORY: Breath sounds equal bilaterally. No accessory muscle use. GASTROINTESTINAL: Abdomen soft, non-tender, nondistended. MUSCULOSKELETAL: No cyanosis, or edema. BACK: Nontender without obvious deformity. No CVA tenderness. Course Initial Documented Vital Signs Temperature 99.0 F 11/08/18 20:23 Pulse Rate 107 H 11/08/18 20:23 Respiratory Rate 15 11/08/18 20:23 Blood Pressure 157/79 H 11/08/18 20:23 Pulse Oximetry 97 11/08/18 20:23 Last Documented Vital Signs Temperature 99.0 F 11/08/18 20:23 Pulse Rate 84 11/08/18 22:26 Respiratory Rate 15 11/08/18 22:26 Blood Pressure 152/80 H 11/08/18 22:26 Pulse Oximetry 95 11/08/18 22:26 Medical Decision Making MDM Narrative Medical decision making narrative: 58-year-old female with COPD hypertension CAD dyslipidemia previous cardiac stent ongoing tobacco use pack per day more recently 5 cigarettes/day ongoing alcohol use daily last alcohol vodka this morning typically has a 6 pack of beer every 2 days presents to the emergency department for 2 days of progressively worsening symptoms with congested cough nonproductive that has worsened and has subjective fever and chills. Patient states that she has been very anxious has had no resources to take her prescription medications which she has been out of for sometimes. Patient's been having chest tightness 7/10 in intensity is states that she would take sublingual nitroglycerin if she had access to it. No aspirin taken today prior to arrival. Patient placed on tobacco educator with continuous pulse oximetry IV access obtained specimens collected and sent for resulting patient will be treated for chest pain that most likely has a component of angina. EKG shows sinus tach with no acute ST elevation or injury pattern although wavering baseline is artifactual and will be evaluated also for bronchitis pneumonia and influenza as well as alcohol withdrawal. Patient given bolus of normal saline aspirin and sublingual nitroglycerin we will reassess patient's vital signs and anticipate patient will need CIWA precautions as well as a dose of Ativan at this time. CBC with automated differential grossly within normal limits acid is not elevated at 1.7 chest x-ray shows no lobar infiltrate effusion and cavitary lesion left lung is decreasing in size review of medical records indicates patient did not have TB and biopsy was negative for malignancy. Chemistries grossly within normal range mild hyponatremia of 133 and hyperglycemia 155 bicarb is normal anion gap is in normal range; EKG is sinus rhythm with no acute injury pattern change does have some artifact with wavering baseline so possible mild ST depression no ectopy. Troponin I is less than 0.02 CK is not elevated and BNP is not elevated Patient was given aspirin 162 mg with some improvement of chest pain but mostly complained of nitroglycerin induced cephalgia. Patient with history of COPD was given DuoNeb updraft no evidence of pneumonia or infection suspect with ongoing tobacco use acute bronchitis. Tachycardia has diminished with IV fluids and after nitroglycerin blood pressure is also diminished patient given one-time dose of oral Ativan for agitation anxiety 0.5 mg by mouth. My plan at this time would be to admit patient to chest pain center per protocol after also receive as needed bronchodilator therapy possibly one-time dose of Solu- Medrol and CIWA precautions in view of daily every other day alcohol use. Patient has been noncompliant with her medications as she does not have finances to pay for any of her medications and has continued to smoke a pack of tobacco daily. So her risk for cardiac disease is a concern since she has had previous stent placement. Medical Screen Exam Complete: Yes Emergency Medical Condition: Yes Differential Diagnosis Differential Diagnosis: Chest pain, atypical chest pain, ACS, [place], bronchitis, pneumonia, influenza, sepsis, alcohol withdrawal, dehydration, electrolyte disturbance Medical Records Medical records reviewed: Yes I reviewed the patient's medical records. Lab Data Lab results reviewed: Yes I reviewed the patient's lab results. Result diagrams: 11/08/18 20:30 11/08/18 20:30 Lab Results 11/08/18 11/08/18 11/08/18 Range/Units 20:30 20:30 20:30 CBC w Diff WBC (4.0-11.0) th/mm3 RBC (4.00-5.30) mil/mm3 Hgb (11.6-15.3) gm/dL Hct (35.0-46.0) % MCV (80.0-100.0) fL MCH (27.0-34.0) pg MCHC (32.0-36.0) % RDW (11.6-17.2) % Plt Count (150-450) th/mm3 MPV (7.0-11.0) fL Neut % (Auto) (16.0-70.0) % Lymph % (Auto) (9.0-44.0) % [place] % (Auto) (0.0-8.0) % Eos % (Auto) (0.0-4.0) % Baso % (Auto) (0.0-2.0) % Neut # (Auto) (1.8-7.7) th/mm3 Lymph # (Auto) (1.0-4.8) th/mm3 [place] # (Auto) (0.0-0.9) th/mm3 Eos # (Auto) (0.0-0.4) th/mm3 Baso # (Auto) (0.0-0.2) th/mm3 WBC Differential Differential Comment PT (9.8-11.6) sec INR Ratio APTT (23.4-31.7) sec Sodium (136-145) meq/L Potassium (3.5-5.1) meq/L Chloride (98-107) meq/L Carbon Dioxide (21.0-32.0) meq/L Anion Gap (5-15) meq/L BUN (7-18) mg/dL Creatinine (0.50-1.00) mg/dL Estimated GFR (>89) mL/min Random Glucose (74-106) mg/dL Lactic Acid 1.7 (0.4-2.0) mmol/L Calcium (8.5-10.1) mg/dL Magnesium (1.5-2.5) mg/dL Total Bilirubin (0.2-1.0) mg/dL AST (15-37) U/L ALT (10-53) U/L Alkaline Phosphatase (45-117) U/L Total Creatine Kinase (26-192) U/L CK-MB (CK-2) (0.5-3.6) ng/mL Troponin I (0.02-0.05) ng/mL B-Natriuretic Peptide 43 (0-100) pg/mL Total Protein (6.4-8.2) g/dL Albumin (3.4-5.0) g/dL Lipase 292 (73-393) U/L Urine Color (Yellw/Straw) Urine Clarity (Clear) Urine pH (5.0-8.5) Ur Specific [place] (1.002-1.035) Urine Protein (Neg-Trace) mg/dL Urine Glucose (UA) (Negative) mg/dL Urine Ketones (Negative) mg/dL Urine Occult Blood (Negative) Urine Nitrate (Negative) Urine Bilirubin (Negative) Urine Urobilinogen (Less than 2) mg/dL Ur Leukocyte Esterase (Negative) Urine RBC (0-3) /hpf Urine WBC (0-5) /hpf Ur Squamous Epith Cells (0-5) /hpf Urine Bacteria (None) /hpf Micro UA Comment Ur Microscopic Review Urine Culture Comments Serum Alcohol 3 (0-5) mg/dL 02/14/19 02/14/19 02/14/19 Range/Units 20:30 20:30 20:30 CBC w Diff Auto diff final WBC 7.6 (4.0-11.0) th/mm3 RBC 4.44 (4.00-5.30) mil/mm3 Hgb 14.5 (11.6-15.3) gm/dL Hct 43.1 (35.0-46.0) % MCV 97.2 (80.0-100.0) fL MCH 32.7 (27.0-34.0) pg MCHC 33.7 (32.0-36.0) % RDW 18.1 H (11.6-17.2) % Plt Count 201 (150-450) th/mm3 MPV 8.3 (7.0-11.0) fL Neut % (Auto) 58.3 (16.0-70.0) % Lymph % (Auto) 30.7 (9.0-44.0) % [place] % (Auto) 9.9 H (0.0-8.0) % Eos % (Auto) 0.5 (0.0-4.0) % Baso % (Auto) 0.6 (0.0-2.0) % Neut # (Auto) 4.5 (1.8-7.7) th/mm3 Lymph # (Auto) 2.3 (1.0-4.8) th/mm3 [place] # (Auto) 0.8 (0.0-0.9) th/mm3 Eos # (Auto) 0.0 (0.0-0.4) th/mm3 Baso # (Auto) 0.0 (0.0-0.2) th/mm3 WBC Differential . Differential Comment . PT 9.7 L (9.8-11.6) sec INR 1.0 Ratio APTT 26.9 (23.4-31.7) sec Sodium 133 L (136-145) meq/L Potassium 3.5 (3.5-5.1) meq/L Chloride 97 L (98-107) meq/L Carbon Dioxide 27.4 (21.0-32.0) meq/L Anion Gap 9 (5-15) meq/L BUN 12 (7-18) mg/dL Creatinine 0.62 (0.50-1.00) mg/dL Estimated GFR Greater than 89 (>89) mL/min Random Glucose 155 H (74-106) mg/dL Lactic Acid (0.4-2.0) mmol/L Calcium 9.1 (8.5-10.1) mg/dL Magnesium 1.5 (1.5-2.5) mg/dL Total Bilirubin 1.0 (0.2-1.0) mg/dL AST 119 H (15-37) U/L ALT 118 H (10-53) U/L Alkaline Phosphatase 60 (45-117) U/L Total Creatine Kinase 179 (26-192) U/L CK-MB (CK-2) 1.8 (0.5-3.6) ng/mL Troponin I Less than 0.02 L (0.02-0.05) ng/mL B-Natriuretic Peptide (0-100) pg/mL Total Protein 7.7 (6.4-8.2) g/dL Albumin 4.1 (3.4-5.0) g/dL Lipase (73-393) U/L Urine Color (Yellw/Straw) Urine Clarity (Clear) Urine pH (5.0-8.5) Ur Specific [place] (1.002-1.035) Urine Protein (Neg-Trace) mg/dL Urine Glucose (UA) (Negative) mg/dL Urine Ketones (Negative) mg/dL Urine Occult Blood (Negative) Urine Nitrate (Negative) Urine Bilirubin (Negative) Urine Urobilinogen (Less than 2) mg/dL Ur Leukocyte Esterase (Negative) Urine RBC (0-3) /hpf Urine WBC (0-5) /hpf Ur Squamous Epith Cells (0-5) /hpf Urine Bacteria (None) /hpf Micro UA Comment Ur Microscopic Review Urine Culture Comments Serum Alcohol (0-5) mg/dL 11/08/18 Range/Units 21:10 CBC w Diff WBC (4.0-11.0) th/mm3 RBC (4.00-5.30) mil/mm3 Hgb (11.6-15.3) gm/dL Hct (35.0-46.0) % MCV (80.0-100.0) fL MCH (27.0-34.0) pg MCHC (32.0-36.0) % RDW (11.6-17.2) % Plt Count (150-450) th/mm3 MPV (7.0-11.0) fL Neut % (Auto) (16.0-70.0) % Lymph % (Auto) (9.0-44.0) % [place] % (Auto) (0.0-8.0) % Eos % (Auto) (0.0-4.0) % Baso % (Auto) (0.0-2.0) % Neut # (Auto) (1.8-7.7) th/mm3 Lymph # (Auto) (1.0-4.8) th/mm3 [place] # (Auto) (0.0-0.9) th/mm3 Eos # (Auto) (0.0-0.4) th/mm3 Baso # (Auto) (0.0-0.2) th/mm3 WBC Differential Differential Comment PT (9.8-11.6) sec INR Ratio APTT (23.4-31.7) sec Sodium (136-145) meq/L Potassium (3.5-5.1) meq/L Chloride (98-107) meq/L Carbon Dioxide (21.0-32.0) meq/L Anion Gap (5-15) meq/L BUN (7-18) mg/dL Creatinine (0.50-1.00) mg/dL Estimated GFR (>89) mL/min Random Glucose (74-106) mg/dL Lactic Acid (0.4-2.0) mmol/L Calcium (8.5-10.1) mg/dL Magnesium (1.5-2.5) mg/dL Total Bilirubin (0.2-1.0) mg/dL AST (15-37) U/L ALT (10-53) U/L Alkaline Phosphatase (45-117) U/L Total Creatine Kinase (26-192) U/L CK-MB (CK-2) (0.5-3.6) ng/mL Troponin I (0.02-0.05) ng/mL B-Natriuretic Peptide (0-100) pg/mL Total Protein (6.4-8.2) g/dL Albumin (3.4-5.0) g/dL Lipase (73-393) U/L Urine Color Yellow (Yellw/Straw) Urine Clarity Slightly cloudy (Clear) Urine pH 7.0 (5.0-8.5) Ur Specific [place] Less/equal 1.005 (1.002-1.035) Urine Protein Negative (Neg-Trace) mg/dL Urine Glucose (UA) Negative (Negative) mg/dL Urine Ketones Trace H (Negative) mg/dL Urine Occult Blood Small H (Negative) Urine Nitrate Negative (Negative) Urine Bilirubin Negative (Negative) Urine Urobilinogen 1.0 (Less than 2) mg/dL Ur Leukocyte Esterase Negative (Negative) Urine RBC 0-3 (0-3) /hpf Urine WBC 0-5 (0-5) /hpf Ur Squamous Epith Cells Greater than 10 H (0-5) /hpf Urine Bacteria Few H (None) /hpf Micro UA Comment Culture not ind Ur Microscopic Review Microscopic reviewed Urine Culture Comments Culture not ind Serum Alcohol (0-5) mg/dL Imaging Data Radiologist's impression: Chest X-Ray 11/08/18 20:27 CONCLUSION: 1. Slightly more indistinct left upper lobe cavitary mass. 2. No acute abnormality or significant interval change. ECG Data EKG Prior to Arrival: No Attestation: I personally reviewed and interpreted this ECG as follows: (EKG: Sinus tachycardia rate [address] elevation artifactual wavering baseline possible mild ST depression no ectopy.) Discharge Plan Discharge Disposition Patient Disposition: ED Admit(ED Internal Use Only) Discharge Condition Condition: Stable Discharge Order Discharge Orders: ED Use Only Admit Order (Routine); Ordered 11/08/18 Ordered By: Montserrat Glynn Discharge Details Diagnosis: Chest pain, Bronchitis, Alcohol use disorder Physicians Team ED Provider: Montserrat Glynn Primary Care Provider: Primary Care RacheleiElodia Rxs /Orders / Referrals /Forms Prescriptions: No Action No Known Home Medications RF: 0 Discharge Instructions Patient Printed Instructions: Chest Pain (ED) Status ED Status: With Doctor
--- NOTE | 2018-11-08 20:47 | XR ---
EXAM DATE: 11/08/2018 8:43 PM EST AGE/SEX: 58 years / Female INDICATIONS: Chest pain, pressure in chest. Heart palpations radiating into back. CLINICAL DATA: This is the patient's initial encounter. Patient reports that signs and symptoms have been present for 2 days and indicates a pain score of 4/10. MEDICAL/SURGICAL HISTORY: Chronic obstructive pulmonary disease. Hypertension. Smoker. Left von ng collapse. . Cardiac stents. Left lung biopsy. COMPARISON: [facility], CHEST 1V SINGLE AP, 05/22/2018. . FINDINGS: Slightly more indistinct left upper lobe cavitary mass. No significant new focal pleural or parenchym al opacities. The cardiomediastinal contours are unremarkable. Healed right rib fractures. Osseous s tructures are intact. CONCLUSION: 1. Slightly more indistinct left upper lobe cavitary mass. 2. No acute abnormality or significant interval change. Electronically signed by: Heladio Westbrook MD Board Certified Radiologist 11/08/2018 8:45 PM EST
[2018-11-08] MEDS ORDERED: Sodium Chlor 0.9% Inj 500 ML IV.SIG SCH ×2 (21:00→23:00)
[2018-11-08] MEDS: Sod Chloride 0.9% Inj 1,000 ML IV.CONT SCH (21:01)
[2018-11-08 21:02] LABS: Baso % (Auto) 0.6 % (0.0-2.0); Eos % (Auto) 0.5 % (0.0-4.0); Hematocrit 43.1 % (35.0-46.0); Hemoglobin 14.5 gm/dL (11.6-15.3); Lymph # (Auto) 2.3 th/mm3 (1.0-4.8); Lymph % (Auto) 30.7 % (9.0-44.0); Mean Corpuscular HGB Conc 33.7 % (32.0-36.0); Mean Corpuscular Hemoglobin 32.7 pg (27.0-34.0); Mean Corpuscular Volume 97.2 fL (80.0-100.0); Mean Platelet Volume 8.3 fL (7.0-11.0); Mono # (Auto) 0.8 th/mm3 (0.0-0.9); Mono % (Auto) 9.9 % (0.0-8.0); Neut # (Auto) 4.5 th/mm3 (1.8-7.7); Neut % (Auto) 58.3 % (16.0-70.0); Platelet Count 201 th/mm3 (150-450); Red Blood Count 4.44 mil/mm3 (4.00-5.30); Red Cell Distribution Width 18.1 % (11.6-17.2); White Blood Count 7.6 th/mm3 (4.0-11.0)
[2018-11-08 21:09] LABS: Chloride 97 meq/L (98-107); Potassium 3.5 meq/L (3.5-5.1); Sodium 133 meq/L (136-145)
[2018-11-08 21:12] LABS: Calcium 9.1 mg/dL (8.5-10.1); Lipase 292 U/L (73-393)
[2018-11-08 21:13] LABS: Albumin 4.1 g/dL (3.4-5.0); Anion Gap 9 meq/L (5-15); Blood Urea Nitrogen 12 mg/dL (7-18); Carbon Dioxide 27.4 meq/L (21.0-32.0); Glucose,Random 155 mg/dL (74-106); Magnesium 1.5 mg/dL (1.5-2.5)
[2018-11-08 21:14] LABS: Activated Partial Thrombo Time 26.9 sec (23.4-31.7); Prothrombin Time 9.7 sec (9.8-11.6)
[2018-11-08 21:16] LABS: Alanine Aminotransferase 118 U/L (10-53); Aspartate Aminotransferase 119 U/L (15-37); Glomerular Filtration Rate Greater Than 89 mL/min (>89)
[2018-11-08 21:17] LABS: Total Protein 7.7 g/dL (6.4-8.2)
[2018-11-08 21:19] LABS: Alkaline Phosphatase 60 U/L (45-117); Creatine Kinase 179 U/L (26-192)
[2018-11-08 21:20] LABS: Alcohol 3 mg/dL (0-5)
[2018-11-08 21:30] LABS: Bilirubin,Urine Negative (Negative); Clarity,Urine Slightly Cloudy (Clear); Color,Urine Yellow (Yellw/Straw); Glucose,Urine (UA) Negative (Negative); Leukocyte Esterase,Urine Negative (Negative); Nitrite,Urine Negative (Negative); Specific Gravity,Urine Less/Equal 1.005 (1.002-1.035)
[2018-11-08 21:31] LABS: Creatine Kinase MB 1.8 ng/mL (0.5-3.6)
[2018-11-08 21:39] LABS: Bacteria,Urine Few /hpf; RBC,Urine 0-3 /hpf (0-3); Squamous Epithelial Cell,Urine Greater than 10 /hpf (0-5); WBC,Urine 0-5 /hpf (0-5)
[2018-11-08] MEDS ORDERED: Ketorolac Inj 30 MG/ML (IVP) Vial IV.PUSH ONE (22:10)
[2018-11-08] MEDS ORDERED: LORazepam 0.5 MG Tablet PO ONE (22:10)
[2018-11-08] MEDS ORDERED: Acetaminophen 325 MG Tablet PO PRN (22:36)
[2018-11-08] MEDS ORDERED: Haloperidol Inj 5 MG/ML Ampul IV.PUSH PRN ×2 (22:36→22:39)
[2018-11-08] MEDS ORDERED: LORazepam 1 MG Tablet PO PRN (22:36)
[2018-11-08] MEDS ORDERED: MethylPREDNISolone Sod Succinate Inj 125 MG/2 ML Vial IV.PUSH ONE (22:39)
[2018-11-09 00:47] LABS: Creatine Kinase 132 U/L (26-192)
[2018-11-09] MEDS: LORazepam 1 MG Tablet PO PRN ×2 (01:01→10:38)
[2018-11-09 03:15] LABS: Creatine Kinase 131 U/L (26-192)
[2018-11-09] MEDS: Sod Chloride 0.9% Inj 1,000 ML IV.CONT SCH ×2 (05:15→05:37)
[2018-11-09 06:28] LABS: Baso % (Auto) 0.5 % (0.0-2.0); Eos % (Auto) 0.7 % (0.0-4.0); Hematocrit 36.7 % (35.0-46.0); Hemoglobin 12.5 gm/dL (11.6-15.3); Lymph # (Auto) 0.5 th/mm3 (1.0-4.8); Lymph % (Auto) 11.3 % (9.0-44.0); Mean Corpuscular Hemoglobin 32.8 pg (27.0-34.0); Mean Corpuscular Volume 96.5 fL (80.0-100.0); Mono # (Auto) 0.1 th/mm3 (0.0-0.9); Mono % (Auto) 1.4 % (0.0-8.0); Neut # (Auto) 3.6 th/mm3 (1.8-7.7); Neut % (Auto) 86.1 % (16.0-70.0); Platelet Count 157 th/mm3 (150-450); Red Blood Count 3.81 mil/mm3 (4.00-5.30); Red Cell Distribution Width 17.3 % (11.6-17.2); White Blood Count 4.2 th/mm3 (4.0-11.0)
[2018-11-09 06:34] LABS: Chloride 102 meq/L (98-107); Potassium 3.9 meq/L (3.5-5.1); Sodium 137 meq/L (136-145)
[2018-11-09 06:42] LABS: Calcium 8.4 mg/dL (8.5-10.1)
[2018-11-09 06:43] LABS: Anion Gap 10 meq/L (5-15); Blood Urea Nitrogen 9 mg/dL (7-18); Carbon Dioxide 25.4 meq/L (21.0-32.0); Glucose,Random 127 mg/dL (74-106)
[2018-11-09 06:47] LABS: Glomerular Filtration Rate Greater Than 89 mL/min (>89)
[2018-11-09] MEDS ORDERED: Regadenoson Inj 0.4 MG/5 ML Syringe IV.PUSH ONE (07:45)
--- NOTE | 2018-11-09 07:52 | P.HPIM ---
History of Present Illness Primary Care Physician: No Primary Care Physician Chief Complaint: Chest tightness History of Present Illness: 58-year-old female with known history of hypertension, hyperlipidemia, coronary artery disease status post stenting, alcohol abuse, tobacco abuse, chronic obstructive pulmonary disease, cavitary lesion who presented to hospital for a few day history of chest tightness. Patient states that she has been noticing in the last few days that she has tightness that radiates into the back that is associated with increased heart rate. She indicates that the pain can last for hours and usually resolves on its own. Patient does have a rather extensive cardiac history and due to financial reasons she has been able to take her home medications. She indicates that she has not taken her medications for at least 4 months. Patient has undergone cardiac evaluation in September 2017 in which she did undergo myocardial perfusion study which was unremarkable. Due to the patient' s unfortunate noncompliance with medications patient increased risk for developing worsening coronary artery disease. Patient was recommended observation chest pain center for further evaluation and management. Currently the patient is asymptomatic. Patient denies any shortness of breath, dyspnea, diaphoresis, nausea, vomiting. Review of Systems Review of Systems: all other systems reviewed are negative Cardiovascular: Reports chest pain and Reports rapid heart rate [facility] Medical History Medical History History of myocardial infarction (Acute) Tobacco use (Acute) CAD (coronary artery disease) (Acute) COPD (chronic obstructive pulmonary disease) (Acute) HTN (hypertension) (Acute) High cholesterol (Acute) Surgical History Surgical History History of appendectomy (Acute) Stented coronary artery (Acute) Social History Social History Substance History: No History of Abuse Second Hand Smoke Exposure: Yes Smoking Status: Current every day smoker Tobacco Type: Cigarettes Packs Per Day: 1 Cigarettes Per Day: 20.0 Years Smoked: 40 Pack-Years: 40.00 How Often Do You Have a Drink Containing Alcohol: 4 or more times a week Recent Travel in [facility] within the Last 8 Weeks: No Recent Out of Country Travel within the Last 8 Weeks: No Immunization History Tetanus Immunization: Unsure Medications and Allergies Allergies Allergy/AdvReac Type Severity Reaction Status Date / Time No Known Allergies Allergy Verified 11/08/18 20:54 Home Medications Medication Instructions Recorded Confirmed Type No Known Home Medications 11/08/18 11/08/18 History Active Medications: Active Medications Acetaminophen (Tylenol) 650 mg PO Q4H PRN PRN Reason: Temp > 100.4 Albuterol (Duoneb Neb (Alison)) 1 ampul NEB Q6HR WHILE AWAKE NEB ALISON Last Admin: 11/09/18 07:31 Dose: 1 ampul Albuterol (Albuterol Neb (Prn)) 2.5 mg NEB UNSCH PRN PRN Reason: SHORTNESS OF BREATH/WHEEZING Albuterol (Duoneb Neb (Prn)) 1 ampul NEB UNSCH PRN PRN Reason: SHORTNESS OF BREATH/WHEEZING Flumazenil (Romazicon Inj) 0.2 mg IV.PUSH Q1M PRN PRN Reason: OVERSEDATION Flumazenil (Romazicon Inj) 0.2 mg IV.PUSH Q1M PRN PRN Reason: OVERSEDATION Haloperidol Lactate (Haldol Inj) 1 mg IV.PUSH Q15M PRN PRN Reason: for severe agitation Haloperidol Lactate (Haldol Inj) 1 mg IV.PUSH Q15M PRN PRN Reason: for severe agitation Sodium Chloride (Ns Inj) 1,000 mls @ 100 mls/hr IV.CONT .Q10H COUNT INCLUDES THE [facility] Last Admin: 11/09/18 05:37 Dose: Not Given Lorazepam (Ativan Inj) 1 mg IV.PUSH Q4H PRN PRN Reason: for CIWA 8-10 Lorazepam (Ativan Inj) 2 mg IV.PUSH Q15M PRN PRN Reason: for CIWA > 20 Lorazepam (Ativan Inj) 2 mg IV.PUSH Q1H PRN PRN Reason: for CIWA 15-20 Lorazepam (Ativan Inj) 2 mg IV.PUSH Q2H PRN PRN Reason: for CIWA 11-14 Lorazepam (Ativan) 1 mg PO Q4H PRN PRN Reason: for CIWA 8-10 Last Admin: 11/09/18 01:01 Dose: 1 mg Lorazepam (Ativan) 2 mg PO Q2H PRN PRN Reason: for CIWA 11-14 Lorazepam (Ativan) 1 mg PO Q4H PRN PRN Reason: for CIWA 8-10 Lorazepam (Ativan) 2 mg PO Q2H PRN PRN Reason: for CIWA 11-14 Lorazepam (Ativan Inj) 2 mg IV.PUSH Q1H PRN PRN Reason: for CIWA 15-20 Lorazepam (Ativan Inj) 2 mg IV.PUSH Q15M PRN PRN Reason: for CIWA > 20 Lorazepam (Ativan Inj) 1 mg IV.PUSH Q4H PRN PRN Reason: for CIWA 8-10 Lorazepam (Ativan Inj) 2 mg IV.PUSH Q2H PRN PRN Reason: for CIWA 11-14 Ondansetron HCl (Zofran Inj) 4 mg IV.PUSH Q6H PRN PRN Reason: NAUSEA OR VOMITING Regadenoson (Lexiscan Inj) 0.4 mg IV.PUSH ONCE ONE Stop: 11/09/18 07:46 Sodium Chloride (Ns Flush) 2 ml IV.FLUSH UNSCH PRN PRN Reason: FLUSH AFTER USING IV ACCESS Sodium Chloride (Ns Flush) 2 ml IV.FLUSH BID ALISON Sodium Chloride (Ns Flush) 2 ml IV.FLUSH PRN PRN PRN Reason: FLUSH AFTER USING IV ACCESS Physical Exam Vital signs: Vital Signs 11/08/18 20:23 11/08/18 20:30 11/08/18 21:04 Temperature 99.0 F Pulse Rate 107 H Respiratory Rate 15 Blood Pressure 157/79 H 162/72 H Pulse Oximetry 97 96 11/08/18 21:07 11/08/18 22:20 11/08/18 22:26 Temperature Pulse Rate 93 H 91 H 84 Respiratory Rate 15 16 15 Blood Pressure 152/80 H Pulse Oximetry 94 L 95 11/08/18 23:33 11/09/18 00:00 11/09/18 00:12 Temperature 99.3 F Pulse Rate 84 85 81 Respiratory Rate 15 18 16 Blood Pressure 156/72 H 170/82 H Pulse Oximetry 95 96 95 11/09/18 00:55 11/09/18 01:45 11/09/18 04:00 Temperature 96.9 F L Pulse Rate 87 73 Respiratory Rate 16 Blood Pressure 156/87 H 151/85 H Pulse Oximetry 99 11/09/18 04:05 11/09/18 07:33 Temperature Pulse Rate 86 68 Respiratory Rate 16 Blood Pressure Pulse Oximetry 99 Intake & Output 11/08/18 11/09/18 11/09/18 18:59 06:59 18:59 Intake Total 1999 Balance 1999 Weight 58.4 kg Intake: IV 1999 NS Inj 1,000 ML @ 100 mls/hr IV 1000 / 1000 .CONT .Q10H ALISON Rx#:[id number] NS Inj 500 ML @ 1000 mls/hr IV. 1000 / 1000 SIG BOLUS ALISON Rx#:[id number] Other: # Voids 1 Weight On Admission 54.431 kg Narrative: GENERAL: Well-developed, well-nourished, patient looks much older than she actually is. In no acute distress. alert and orientated HEENT: Head is normocephalic without any lesions or masses noted. Facial features are symmetric. Eyes: Pupils equal round reactive to light. Extraocular muscles are intact. Conjunctivae were clear. Oropharyngeal: Pharynx without any erythema edema. Tongue is midline without deviation. Buccal mucosa is moist without any masses or lesions NECK: Supple without any masses. Trachea midline no deviation. No JVD, no bruits are appreciated CARDIAC: Regular rhythm, regular rate. S1/S2 are heard. No murmurs gallops or rubs. LUNGS: Clear to auscultation bilaterally. No wheeze, rhonchi or rales. No use of accessory muscles on inspiration or expiration. ABDOMEN: Soft, nontender. Nondistended. Bowel sounds heard in all 4 quadrants. No organomegaly or masses. Negative rebound, negative guarding EXTREMITIES: No edema, pulses are equal bilaterally. No cyanosis or clubbing NEUROLOGY: Mood and affect appear appropriate. Cranial nerves II through XII grossly intact. Muscle strength 5/5 in upper and lower extremities bilaterally. Deep tendon reflexes are 2+ in upper and lower extremities bilaterally. Results Labs CBC & Chem 7: 11/09/18 04:55 11/09/18 04:55 Imaging Impressions Chest X-Ray 11/08/18 20:27 CONCLUSION: 1. Slightly more indistinct left upper lobe cavitary mass. 2. No acute abnormality or significant interval change. Caprini VTE Risk Assessment Caprini VTE Risk Assessment: No/Low Risk (score <= 1) Caprini Risk Assessment Model: Point Value = 1 Point Value = 2 Point Value = 3 Point Value = 5 Age 41-60 Minor surgery BMI > 25 kg/m2 Swollen legs Varicose veins or History of unexplained or recurrent spontaneous Oral contraceptives or hormone replacement Sepsis (< 1 month) Serious lung disease, including pneumonia (< 1 month) Abnormal pulmonary function Acute myocardial infarction Congestive heart failure (< 1 month) History of inflammatory bowel disease Medical patient at bed rest Age 61-74 Arthroscopic surgery Major open surgery (> 45 min) Laparoscopic surgery (> 45 min) Malignancy Confined to bed (> 72 hours) Immobilizing plaster cast Central venous access Age >= 75 History of VTE Family history of VTE Factor V Leiden Prothrombin [id number] Lupus anticoagulant Anticardiolipin antibodies Elevated serum homocysteine Heparin-induced thrombocytopenia Other congenital or acquired thrombophilia Stroke (< 1 month) Elective arthroplasty Hip, pelvis, or leg fracture Acute spinal cord injury (< 1 month) Prophylaxis Regimen: Total Risk Factor Score Risk Level Prophylaxis Regimen 0-1 Low Early ambulation 2 Moderate Order ONE of the following: *Sequential Compression Device (SCD) *Heparin 5000 units SQ BID 3-4 Higher Order ONE of the following medications: *Heparin 5000 units SQ TID *Enoxaparin/Lovenox 40 mg SQ daily (WT < 150 kg, CrCl > 30 mL/min) *Enoxaparin/Lovenox 30 mg SQ daily (WT < 150 kg, CrCl > 10-29 mL/min) *Enoxaparin/Lovenox 30 mg SQ BID (WT < 150 kg, CrCl > 30 mL/min) AND/OR *Sequential Compression Device (SCD) 5 or more Highest Order ONE of the following medications: *Heparin 5000 units SQ TID (Preferred with Epidurals) *Enoxaparin/Lovenox 40 mg SQ daily (WT < 150 kg, CrCl > 30 mL/min) *Enoxaparin/Lovenox 30 mg SQ daily (WT < 150 kg, CrCl > 10-29 mL/min) *Enoxaparin/Lovenox 30 mg SQ BID (WT < 150 kg, CrCl > 30 mL/min) AND *Sequential Compression Device (SCD) Assessment and Plan Plan Chest pain Patient with increased risk factors to include hypertension, hyperlipidemia, coronary disease, history of myocardial infarction, medication noncompliance, tobacco use Patient has been ruled out for acute coronary event with serial cardiac enzymes that are negative Serial EKG were reviewed by myself and indicated normal sinus rhythm without any changes Myocardial perfusion study was performed and indicated on examination, no signs of ischemia, low risk Continue monitor telemetry Oxygen as needed Hypertension, hyperlipidemia, coronary disease Patient has been noncompliant with medications due to financial difficulties and no insurance Consulted case management for patient care assistance, she was applied information and was given a blue card We will resume patient's home medications to include ramipril 2.5 mg daily, metoprolol 12.5 mg twice daily, atorvastatin 20 mg at bedtime, daily aspirin. Patient was on Plavix, however cardiac catheterization was in 2017 Will discharge patient with prescription for metoprolol, ramipril, atorvastatin , daily aspirin Chronic obstructive pulmonary disease Patient counseled on smoking cessation Duo nebs every 6 hours while awake and as needed Discharge home with albuterol inhaler Daily alcohol use Patient started on CIWA protocol Start thiamine and folic acid Patient CIWA score has been 0-8 Patient received Ativan 1 mg at 1 AM this morning DVT prevention Sequential compression devices Discussed Condition With: Patient, nursing staff, Dr. Raya Discharge Planning: Discharge home in stable condition Activity: Ad hannah. Diet: Healthy heart diet Medication per medication reconciliation Follow-up with primary medical doctor in 1 week H&P: Quality VTE Deep Vein Thrombosis/Pulmonary Embolism Present on Admission: No
[2018-11-09 08:56] VITALS: O2SAT 96
[2018-11-09] MEDS ORDERED: Metoprolol Tartrate 25 MG Tablet PO SCH (09:00)
[2018-11-09] MEDS ORDERED: Folic Acid 1 MG Tablet PO SCH (09:00)
[2018-11-09] MEDS ORDERED: Ramipril 2.5 MG Capsule PO SCH (09:00)
[2018-11-09 13:07] VITALS: PULSE 80; RESP 21; TEMP 99.5
[2018-11-09 13:14] VITALS: BP 113/55
--- NOTE | 2018-11-09 14:11 | NM ---
EXAM DATE: 11/09/2018 2:06 PM EST AGE/SEX: 58 years / Female INDICATIONS:Angina. Coronary artery disease Mid chest pain for two days. CLINICAL DATA: This is the patient's initial encounter. Patient reports that signs and symptoms have been present for 2 days and indicates a pain score of 5/10. MEDICAL/SURGICAL HISTORY: Chronic obstructive pulmonary disease. Hypertension. Appendectomy. Coronary artery stent. Tubal ligation. COMPARISON: [facility], MYOCARDIAL PERF PHARM SPECT, 10/21/2017. . No external comparison. DOSE: 8.8 mCi Tc 99m Myoview at rest 25.9 mCi [id number] at stress 0.4 mg Lexiscan STRESS SYMPTOMS: Chest pressure. EJECTION FRACTION: 63 % TECHNIQUE: The patient underwent pharmacologic stress with infusion of prescribed dose. Continuous ECG tracing was monitored during stress. Gated SPECT imaging was performed after stress and conventi onal SPECT imaging was performed at rest. The examination was performed on a SPECT/CT scanner, both attenuation and non-corrected datasets were reviewed. FINDINGS: Distribution: The maximum perfused segment at stress is in the septal wall. Perfusion Study: The pattern of perfusion at stress is within normal limits. Gated Study: There are intact wall motion and wall thickening without hypokinetic or dyskinetic segm ents. The ejection fraction is calculated at 63%. RISK CATEGORY: Low (<1% Annual Mortality Rate) No significant change compared to the prior examination. CONCLUSION: 1. Unremarkable and stable myocardial perfusion scan compared to the prior study. Electronically signed by: Galo Fair MD Board Certified Radiologist 11/09/2018 2:10 PM EST
--- NOTE | 2018-11-09 14:42 | ECG ---
Date Performed: 11/08/2018 Time Performed: 20:17:11 PTAGE: 58 years EKG: SINUS TACHYCARDIA POSSIBLE LEFT ATRIAL ENLARGEMENT MINIMAL ST DEPRESSION ABNORMAL RHYTHM EC G Since the PREVIOUS TRACING , no significant change noted PREVIOUS TRACIN05/22/2018 12.03 DOCTOR: Chela Duvall Interpretating Date/Time 11/09/2018 14:37:37
--- NOTE | 2018-11-09 14:42 | ECG ---
Date Performed: 11/08/2018 Time Performed: 23:22:00 PTAGE: 58 years EKG: Sinus rhythm WITH SINUS ARRHYTHMIA NORMAL ECG Since the PREVIOUS TRACING , no significant change noted PREVIOUS TRACIN11/08/2018 20.17 DOCTOR: Chela Duvall Interpretating Date/Time 11/09/2018 14:37:45
--- NOTE | 2018-11-09 14:43 | ECG ---
Date Performed: 11/09/2018 Time Performed: 02:11:14 PTAGE: 58 years EKG: Sinus rhythm NORMAL ECG Since the PREVIOUS TRACING , no significant change noted PREVIOUS TRACIN11/08/2018 23.22 DOCTOR: Chela Duvall Interpretating Date/Time 11/09/2018 14:37:53
--- NOTE | 2018-11-09 17:14 | TR ---
Date Performed: 11/09/2018 Time Performed: 13:31:33 DOCTOR: Coty Bobo DRUG LIST: CLINICAL HISTORY: CHEST PAIN ANGINA REASON FOR TEST: Angina REASON FOR ENDING: OBSERVATION: CONCLUSION: Lexiscan stress test was performed under standard four minute protocol. Radionuclid e was injected one minute prior to ending the test. No electrocardiographic abormalities were present to suggest ischemia. Nuclear imaging and interpretation are pending. COMMENTS: Lexiscan stress test was performed under standard four minute protocol. Radionuclide was injected one minute prior to ending the test. No electrocardiographic abormalities were present t o suggest ischemia. Nuclear imaging and interpretation are pending.
== END 2018-11-09 15:30 | disposition home or self-care (01) ==
LOC: PHED 19:55 → PHEDA 19:55 → PH3 11-09 00:10
PROVIDERS: ADMIT Hospitalist; ATTEND Hospitalist
DX: Z90.49 Acquired absence of other specified parts of digestive tract; F17.210 Nicotine dependence, cigarettes, uncomplicated; F10.10 Alcohol abuse, uncomplicated; Z79.899 Other long term (current) drug therapy; R07.9 Chest pain, unspecified; I25.2 Old myocardial infarction; I25.10 Atherosclerotic heart disease of native coronary artery without angina pectoris; Z91.14 Patient's other noncompliance with medication regimen; I10 Essential (primary) hypertension; Z95.5 Presence of coronary angioplasty implant and graft; J44.9 Chronic obstructive pulmonary disease, unspecified; E78.5 Hyperlipidemia, unspecified; E78.00 Pure hypercholesterolemia, unspecified
CPT/HCPCS: 71010; 71045; 78452; 80048; 80053; 80307; 81001; 82550; 82552; 83520; 83605; 83690; 83735; 83880; 84484; 85025; 85610; 85730; 87040; 90761; 90774; 93005; 93017; 94640; 94664; 94665; 96361; 96374; 96375; 99285; A9502; C8952; G0378; J1885; J2785; J2930; J7030; J7040; Q9969